=== PATIENT | male | born 1945 | race Caucasian/White ===

== ENCOUNTER 2017-05-14 06:48 | Inpatient (IN) | payer MEDICARE, OTHER ==
--- NOTE | 2017-05-14 06:43 | EDM.PDOC ---
<Tomer Dorsey M - Last Filed: 05/14/17 06:35> ED HPI GENERAL MEDICAL PROBLEM - General Chief Complaint: Neurological Problem Stated Complaint: AMBULANCE Time Seen by Provider: 05/13/17 06:45 Source of Information: Reports: EMS History Limitations: Reports: Altered Mental Status - History of Present Illness INITIAL COMMENTS - FREE TEXT/NARRATIVE: This 71 yo male patient was brought to the ED by [facility] due to altered mentation. The patient's reports that the patient was having difficulties walking last night at about 1000 when he went to bed. This morning, the was having a difficult time waking him up. EMS reports that the patient had snoring respirations upon their arrival. EMS established an IV, got a blood sugar of 33 , gave the patient 2 amps of D50 and transported. After the D50, the patient started to respond, but had left sided weakness and was leaning to the right while in the cot. The patient's reports that the patient has had a history of bilateral strokes, but reports this is not his normal behavior. The patient was sent to CT directly from the ambulance prior to assessment. EMS also did several EKG's demonstrating various rhythms (sinus tach and a wide complex rhythm). Onset: Today Duration: Constant Location: Reports: Generalized Quality: Reports: Other Severity: Severe Improves with: Reports: None Worsens with: Reports: None Associated Symptoms: Reports: Cough (for 1 week reported by patient's ), Shortness of Breath, Weakness Treatments ENDOSCOPY TECHNICAN: Reports: IV/IO (by EMS), Other Medication(s) (D50 x 2 amps by EMS) - Related Data Allergies Allergy/AdvReac Type Severity Reaction Status Date / Time sulfamethoxazole Allergy Blisters Verified 01/07/16 23:42 [From Bactrim] trimethoprim [From Bactrim] Allergy Blisters Verified 01/07/16 23:42 Home Meds: Home Meds Calcium Carbonate [Calcium] 1,200 mg PO DAILY 06/21/13 [History] Clopidogrel Bisulfate [Plavix] 75 mg PO DAILY 06/21/13 [History] Folic Acid 3 tab PO DAILY 06/21/13 [History] Gabapentin [Neurontin] 300 mg PO BID 06/21/13 [History] Hydroxychloroquine Sulfate [Plaquenil] 200 mg PO DAILY 06/21/13 [History] Insulin Aspart [NovoLOG] 1 unit SQ ASDIRECTED 06/21/13 [History] Multivitamin [Multivitamins] 1 each PO DAILY 06/21/13 [History] Nitroglycerin [Nitrostat] 1 tab SL ASDIRECTED PRN 06/21/13 [History] [place]-3/DHA/Epa/Fish Oil [Ra Fish Oil 1,000 mg Softgel] 1 cap PO DAILY 06/21/13 [History] atorvaSTATin [Lipitor] 40 mg PO BEDTIME 06/21/13 [History] Carvedilol 15.625 mg PO BID 05/25/14 [History] Amiodarone [Cordarone] 200 mg PO BEDTIME 11/02/15 [History] Furosemide [Lasix] 40 mg PO ASDIRECTED PRN 11/02/15 [History] Rivaroxaban [Xarelto] 10 mg PO DAILY 11/02/15 [History] Valsartan/Hydrochlorothiazide [Valsartan-Hctz 320-25 mg Tab] 325 tab PO DAILY [History] quiNINE Sulfate [Qualaquin] 260 mg PO ASDIRECTED PRN 11/02/15 [History] Potassium Chloride [Klor-Con M20] 20 meq PO DAILY 11/03/15 [History] Timolol Maleate 1 drop EYEBOTH DAILY 11/03/15 [History] Past Medical History HEENT History: Reports: Cataract Cardiovascular History: Reports: Automatic Implantable Cardioverter Defibrillators, Bypass, High Cholesterol, Hypertension, Stents Respiratory History: Reports: Sleep Apnea Musculoskeletal History: Reports: Arthritis, Other (See Below) Other Musculoskeletal History: scoliosis Neurological History: Reports: CVA, Speech Problems Endocrine/Metabolic History: Reports: Diabetes, Type I, Other (See Below) Other Endocrine/Metabolic History: insulin pump - Infectious Disease History Infectious Disease History: Reports: MRSA, Other (See Below) Other Infectious Disease History: previous MRSA in foot wound culture - Past Surgical History Cardiovascular Surgical History: Reports: AICD, Coronary Artery Stent GI Surgical History: Reports: Hernia, Abdominal Musculoskeletal Surgical History: Reports: Amputation, Other (See Below) Social & Family History - Family History Family Medical History: Noncontributory - Tobacco Use Smoking Status *Q: Never Smoker Used Tobacco, but Quit: No Second Hand Smoke Exposure: No - Caffeine Use Caffeine Use: Reports: Coffee, Soda - Alcohol Use Days Per Week of Alcohol Use: 1 Number of Drinks Per Day: 1 Total Drinks Per Week: 1 - Recreational Drug Use Recreational Drug Use: No Drug Use in Last 12 Months: No ED ROS GENERAL - Review of Systems Review Of Systems: ROS reveals no pertinent complaints other than HPI. Course - Vital Signs Last Recorded V/S: Last Vital Signs Temp 36.2 C 05/14/17 07:00 Pulse 74 05/14/17 07:00 Resp 12 05/14/17 07:00 BP 146/105 H 05/14/17 07:00 Pulse Ox 99 05/14/17 07:00 - Orders/Labs/Meds Orders: Active Orders 24 hr Category Date Time Status Blood Glucose Check, Bedside [] ONETIME Care 05/14/17 07:30 Active EKG Documentation Completion [] URGENT Care 05/14/17 06:39 Active Glucose [Blood Glucose Check, Bedside] [] ONETIME Care 05/14/17 06:33 Active CULTURE BLOOD [] Stat Lab 05/14/17 06:58 Received CULTURE BLOOD [] Stat Lab 05/14/17 07:09 Results CULTURE STREP A CONFIRMATION [] Stat Lab 05/14/17 07:38 Results STREP SCRN A RAPID W CULT CONF [] Stat Lab 05/14/17 07:38 Results Dextrose 5%-0.45% NaCl [Dextrose 5%-1/2 NS] 1,000 ml Med 05/14/17 07:30 Active IV ASDIRECTED Piperacillin/Tazobactam [Zosyn] 3.375 gm Med 05/14/17 09:37 Ordered Sodium Chloride 0.9% [Normal Saline] 100 ml IV ONETIME Blood Culture x2 Reflex Set [OM.PC] Stat Oth 05/14/17 06:33 Ordered Medication Orders Dextrose/Sodium Chloride (Dextrose 5%-1/2 Ns) 1,000 mls @ 100 mls/hr IV ASDIRECTED TYRONE Last Admin: 05/14/17 07:57 Dose: 100 mls/hr Piperacillin Sod/Tazobactam (Sod 3.375 gm/ Sodium Chloride) 100 mls @ 200 mls/ hr IV ONETIME ONE Stop: 05/14/17 10:06 Last Admin: 05/14/17 09:53 Dose: 200 mls/hr Labs: Laboratory Tests 05/14/17 05/14/17 05/14/17 Range/Units 06:49 06:58 06:58 WBC (5.0-10.0) 10^3/uL RBC (4.6-6.2) 10^6/uL Hgb (14.0-18.0) g/dL Hct (40.0-54.0) % MCV (80-100) fL MCH (27.0-34.0) pg MCHC (33.0-35.0) g/dL Plt Count (150-450) 10^3/uL Neut % (Auto) (42.2-75.2) % Lymph % (Auto) (20.5-50.1) % Story % (Auto) (2-8) % Eos % (Auto) (1.0-3.0) % Baso % (Auto) (0.0-1.0) % PT 10.7 (9.0-12.0) SEC INR 1.1 (0.9-1.2) Sodium (135-145) mmol/L Potassium (3.6-5.0) mmol/L Chloride (101-111) mmol/L Carbon Dioxide (21.0-31.0) mmol/L Anion Gap BUN (7-18) mg/dL Creatinine (0.6-1.3) mg/dL Est Cr Clr Drug Dosing mL/min Estimated GFR (MDRD) BUN/Creatinine Ratio Glucose (74-105) mg/dL POC Glucose 178 H (83-110) mg/dl Lactic Acid 2.0 (0.5-2.2) mmol/L Calcium (8.4-10.2) mg/dl Magnesium (1.8-2.5) mg/dL Total Bilirubin (0.2-1.0) mg/dL AST (10-42) IU/L ALT (10-60) IU/L Alkaline Phosphatase (42-121) IU/L Troponin I (0.00-0.02) ng/ml B-Natriuretic Peptide (0-100) pg/ml Total Protein (6.7-8.2) g/dl Albumin (3.2-5.5) g/dl Globulin Albumin/Globulin Ratio Urine Color (YELLOW) Urine Appearance (CLEAR) Urine pH (5.0-9.0) Ur Specific [place] (1.005-1.030) Urine Protein (NEGATIVE) Urine Glucose (UA) (NEGATIVE) Urine Ketones (NEGATIVE) Urine Occult Blood (NEGATIVE) Urine Nitrite (NEGATIVE) Urine Bilirubin (NEGATIVE) Urine Urobilinogen (0.2-1.0) mg/dL Ur Leukocyte Esterase (NEGATIVE) Urine RBC /HPF Urine WBC (0-5/HPF) /HPF Ur Epithelial Cells /HPF Urine Bacteria (0-FEW/HPF) /HPF Hyaline Casts /LPF Fine Granular Casts (0/LPF) /LPF Urine Mucus /LPF 05/14/17 05/14/17 05/14/17 Range/Units 06:58 06:58 06:58 WBC 14.7 H (5.0-10.0) 10^3/uL RBC 4.84 (4.6-6.2) 10^6/uL Hgb 14.0 (14.0-18.0) g/dL Hct 43.3 (40.0-54.0) % MCV 89.5 (80-100) fL MCH 28.9 (27.0-34.0) pg MCHC 32.3 L (33.0-35.0) g/dL Plt Count 335 D (150-450) 10^3/uL Neut % (Auto) 86.4 H (42.2-75.2) % Lymph % (Auto) 7.7 L (20.5-50.1) % Story % (Auto) 5.1 (2-8) % Eos % (Auto) 0.3 L (1.0-3.0) % Baso % (Auto) 0.5 (0.0-1.0) % PT (9.0-12.0) SEC INR (0.9-1.2) Sodium 142 (135-145) mmol/L Potassium 3.9 (3.6-5.0) mmol/L Chloride 102 (101-111) mmol/L Carbon Dioxide 27.0 (21.0-31.0) mmol/L Anion Gap 16.9 BUN 35 H (7-18) mg/dL Creatinine 1.6 H (0.6-1.3) mg/dL Est Cr Clr Drug Dosing 43.79 mL/min Estimated GFR (MDRD) 43 BUN/Creatinine Ratio 21.87 Glucose 213 H (74-105) mg/dL POC Glucose (83-110) mg/dl Lactic Acid (0.5-2.2) mmol/L Calcium 9.7 (8.4-10.2) mg/dl Magnesium 2.4 (1.8-2.5) mg/dL Total Bilirubin 0.9 (0.2-1.0) mg/dL AST 32 (10-42) IU/L ALT 22 (10-60) IU/L Alkaline Phosphatase 88 (42-121) IU/L Troponin I 0.04 H* (0.00-0.02) ng/ml B-Natriuretic Peptide (0-100) pg/ml Total Protein 8.0 (6.7-8.2) g/dl Albumin 4.3 (3.2-5.5) g/dl Globulin 3.7 Albumin/Globulin Ratio 1.16 Urine Color (YELLOW) Urine Appearance (CLEAR) Urine pH (5.0-9.0) Ur Specific [place] (1.005-1.030) Urine Protein (NEGATIVE) Urine Glucose (UA) (NEGATIVE) Urine Ketones (NEGATIVE) Urine Occult Blood (NEGATIVE) Urine Nitrite (NEGATIVE) Urine Bilirubin (NEGATIVE) Urine Urobilinogen (0.2-1.0) mg/dL Ur Leukocyte Esterase (NEGATIVE) Urine RBC /HPF Urine WBC (0-5/HPF) /HPF Ur Epithelial Cells /HPF Urine Bacteria (0-FEW/HPF) /HPF Hyaline Casts /LPF Fine Granular Casts (0/LPF) /LPF Urine Mucus /LPF 05/14/17 05/14/17 05/14/17 Range/Units 06:58 07:38 07:43 WBC (5.0-10.0) 10^3/uL RBC (4.6-6.2) 10^6/uL Hgb (14.0-18.0) g/dL Hct (40.0-54.0) % MCV (80-100) fL MCH (27.0-34.0) pg MCHC (33.0-35.0) g/dL Plt Count (150-450) 10^3/uL Neut % (Auto) (42.2-75.2) % Lymph % (Auto) (20.5-50.1) % Story % (Auto) (2-8) % Eos % (Auto) (1.0-3.0) % Baso % (Auto) (0.0-1.0) % PT (9.0-12.0) SEC INR (0.9-1.2) Sodium (135-145) mmol/L Potassium (3.6-5.0) mmol/L Chloride (101-111) mmol/L Carbon Dioxide (21.0-31.0) mmol/L Anion Gap BUN (7-18) mg/dL Creatinine (0.6-1.3) mg/dL Est Cr Clr Drug Dosing mL/min Estimated GFR (MDRD) BUN/Creatinine Ratio Glucose (74-105) mg/dL POC Glucose 152 H (83-110) mg/dl Lactic Acid (0.5-2.2) mmol/L Calcium (8.4-10.2) mg/dl Magnesium (1.8-2.5) mg/dL Total Bilirubin (0.2-1.0) mg/dL AST (10-42) IU/L ALT (10-60) IU/L Alkaline Phosphatase (42-121) IU/L Troponin I (0.00-0.02) ng/ml B-Natriuretic Peptide 766 H (0-100) pg/ml Total Protein (6.7-8.2) g/dl Albumin (3.2-5.5) g/dl Globulin Albumin/Globulin Ratio Urine Color Yellow (YELLOW) Urine Appearance Slightly cloudy (CLEAR) Urine pH 6.0 (5.0-9.0) Ur Specific [place] 1.015 (1.005-1.030) Urine Protein 30 H (NEGATIVE) Urine Glucose (UA) 250 H (NEGATIVE) Urine Ketones Trace H (NEGATIVE) Urine Occult Blood Trace-intact H (NEGATIVE) Urine Nitrite Negative (NEGATIVE) Urine Bilirubin Negative (NEGATIVE) Urine Urobilinogen 0.2 (0.2-1.0) mg/dL Ur Leukocyte Esterase Negative (NEGATIVE) Urine RBC 10-20 H /HPF Urine WBC 0-5 (0-5/HPF) /HPF Ur Epithelial Cells Few /HPF Urine Bacteria Not seen (0-FEW/HPF) /HPF Hyaline Casts See note /LPF Fine Granular Casts See note (0/LPF) /LPF Urine Mucus Rare /LPF 05/14/17 Range/Units 08:11 WBC (5.0-10.0) 10^3/uL RBC (4.6-6.2) 10^6/uL Hgb (14.0-18.0) g/dL Hct (40.0-54.0) % MCV (80-100) fL MCH (27.0-34.0) pg MCHC (33.0-35.0) g/dL Plt Count (150-450) 10^3/uL Neut % (Auto) (42.2-75.2) % Lymph % (Auto) (20.5-50.1) % Story % (Auto) (2-8) % Eos % (Auto) (1.0-3.0) % Baso % (Auto) (0.0-1.0) % PT (9.0-12.0) SEC INR (0.9-1.2) Sodium (135-145) mmol/L Potassium (3.6-5.0) mmol/L Chloride (101-111) mmol/L Carbon Dioxide (21.0-31.0) mmol/L Anion Gap BUN (7-18) mg/dL Creatinine (0.6-1.3) mg/dL Est Cr Clr Drug Dosing mL/min Estimated GFR (MDRD) BUN/Creatinine Ratio Glucose (74-105) mg/dL POC Glucose 184 H (83-110) mg/dl Lactic Acid (0.5-2.2) mmol/L Calcium (8.4-10.2) mg/dl Magnesium (1.8-2.5) mg/dL Total Bilirubin (0.2-1.0) mg/dL AST (10-42) IU/L ALT (10-60) IU/L Alkaline Phosphatase (42-121) IU/L Troponin I (0.00-0.02) ng/ml B-Natriuretic Peptide (0-100) pg/ml Total Protein (6.7-8.2) g/dl Albumin (3.2-5.5) g/dl Globulin Albumin/Globulin Ratio Urine Color (YELLOW) Urine Appearance (CLEAR) Urine pH (5.0-9.0) Ur Specific [place] (1.005-1.030) Urine Protein (NEGATIVE) Urine Glucose (UA) (NEGATIVE) Urine Ketones (NEGATIVE) Urine Occult Blood (NEGATIVE) Urine Nitrite (NEGATIVE) Urine Bilirubin (NEGATIVE) Urine Urobilinogen (0.2-1.0) mg/dL Ur Leukocyte Esterase (NEGATIVE) Urine RBC /HPF Urine WBC (0-5/HPF) /HPF Ur Epithelial Cells /HPF Urine Bacteria (0-FEW/HPF) /HPF Hyaline Casts /LPF Fine Granular Casts (0/LPF) /LPF Urine Mucus /LPF Meds: Medications Generic Name Dose Route Start Last Admin Trade Name Freq PRN Reason Stop Dose Admin Dextrose/Sodium Chloride 1,000 mls @ 100 mls/hr 05/14/17 07:30 05/14/17 07:57 Dextrose 5%-1/2 Ns IV 100 mls/hr ASDIRECTED TYRONE Administration Piperacillin Sod/Tazobactam 100 mls @ 200 mls/hr 05/14/17 09:37 05/14/17 09: 53 Sod 3.375 gm/ Sodium Chloride IV 05/14/17 10:06 200 mls/hr ONETIME ONE Administration Discontinued Medications Generic Name Dose Route Start Last Admin Trade Name Freq PRN Reason Stop Dose Admin Levofloxacin/Dextrose 500 mg/ 100 mls @ 100 mls/hr 05/14/17 07:49 05/14/17 07 :57 Premix IV 05/14/17 08:48 100 mls/hr ONETIME ONE Administration Departure - Departure Disposition: Admitted As Inpatient 64 Clinical Impression: Hypoglycemia due to insulin, Diabetes mellitus type 2, insulin dependent, Chronic atrial fibrillation, Delirium Aspiration pneumonia Qualifiers: Aspiration pneumonia type: unspecified Laterality: left Lung location: lower lobe of lung Qualified Code(s): J69.0 - Pneumonitis due to inhalation of food and vomit Chronic CHF (congestive heart failure) Qualifiers: Heart failure type: unspecified Qualified Code(s): I50.9 - Heart failure, unspecified Chronic kidney disease Qualifiers: Chronic kidney disease stage: unspecified stage Qualified Code(s): N18.9 - Chronic kidney disease, unspecified - Discharge Information Referrals: Chino Alaniz MD [Primary Care Provider] - Forms: ED Department Discharge - My Orders Last 24 Hours: My Active Orders 05/14/17 07:30 Blood Glucose Check, Bedside [RC] ONETIME Dextrose 5%-0.45% NaCl [Dextrose 5%-1/2 NS] 1,000 ml IV ASDIRECTED 05/14/17 07:38 CULTURE STREP A CONFIRMATION [RM] Stat STREP SCRN A RAPID W CULT CONF [RM] Stat 05/14/17 09:37 Piperacillin/Tazobactam [Zosyn] 3.375 gm Sodium Chloride 0.9% [Normal Saline] 100 ml IV ONETIME - Assessment/Plan Last 24 Hours: My Active Orders 05/14/17 07:30 Blood Glucose Check, Bedside [RC] ONETIME Dextrose 5%-0.45% NaCl [Dextrose 5%-1/2 NS] 1,000 ml IV ASDIRECTED 05/14/17 07:38 CULTURE STREP A CONFIRMATION [RM] Stat STREP SCRN A RAPID W CULT CONF [RM] Stat 05/14/17 09:37 Piperacillin/Tazobactam [Zosyn] 3.375 gm Sodium Chloride 0.9% [Normal Saline] 100 ml IV ONETIME <Benton Claytonian - Last Filed: 05/14/17 10:18> ED HPI GENERAL MEDICAL PROBLEM - General Source of Information: Reports: Patient, Family (), Old Records, RN, RN Notes Reviewed - History of Present Illness INITIAL COMMENTS - FREE TEXT/NARRATIVE: Assumed care of pt from Tomer KELLEY at 0700HR shift change. Pt denies pain , but is confused and unable to provide any history. Pt's states that they just returned home from [place] by car this week. She state pt was not feeling well and has had high blood sugars for a few days. She suspected he may be getting an infection but she didn't notice any fevers. Last night at 10PM she states he had difficulty walking, but he went to bed and slept all night. She was afraid he used too much insulin, so she checked his blood sugar and it was 30 so she called 911. She states pt has had multiple strokes and has aspiration but he refuses a diet of thickened liquids and eats and drinks what he wants. Onset Date: 05/13/17 Past Medical History HEENT History: Reports: Impaired Vision Cardiovascular History: Reports: Afib, CAD, Heart Failure Musculoskeletal History: Reports: RA Neurological History: Reports: TIA, Other (See Below) (chronic aspiration s/p CVA) Endocrine/Metabolic History: Reports: Diabetes, Type I, IDDM - Past Surgical History Cardiovascular Surgical History: Reports: Carotid Endarterectomy Musculoskeletal Surgical History: Reports: Other (See Below) Social & Family History - Living Situation & Occupation Living situation: Reports: , with Spouse Occupation: Retired ED ROS GENERAL - Review of Systems Review Of Systems: Unable To Obtain (from pt due to confusion) ED EXAM, GENERAL - Physical Exam Exam: See Below Exam Limited By: Altered Mental Status General Appearance: Alert, No Apparent Distress, Other (chronically ill, but non -toxic appearing) Eye Exam: Bilateral Eye: EOMI, PERRL Ears: Hearing Grossly Normal Nose: No Blood, Nasal Drainage (moderate nasal congestion w/clear-yellowish mucus) Throat/Mouth: Normal Lips, Normal Oropharynx, Normal Voice, No Airway Compromise , Other (very dry oral membranes) Head: Atraumatic, Normocephalic Neck: Normal Inspection, Supple, Non-Tender, Full Range of Motion Respiratory/Chest: No Respiratory Distress, No Accessory Muscle Use, Decreased Breath Sounds, Rhonchi (left lung base). No: Wheezing Cardiovascular: Regular Rate, Rhythm, No Edema, No JVD GI/Abdominal: Normal Bowel Sounds, Soft, Non-Tender, No Distention. No: Guarding, Rigid, Rebound (Male) Exam: Deferred Rectal (Males) Exam: Deferred Back Exam: No: CVA Tenderness (L), CVA Tenderness (R) Extremities: Normal Inspection, Non-Tender Neurological: Alert, No Motor/Sensory Deficits, Confused Psychiatric: Normal Mood Skin Exam: Warm, Dry, Intact, Normal Color, No Rash EKG INTERPRETATION EKG Date: 05/14/17 Time: 07:00 Rhythm: A-Fib Rate (Beats/Min): 79 [place]: Normal P-Wave: Absent QRS: Other (non-specific IVCD) ST-T: Elevated (chronic/unchanged compared to EKG dated 11/02/17) QT: Normal Comparison: No Change Course - Radiology Interpretation Free Text/Narrative:: CXR: LLL infiltrate suspicious for aspiration pneumonia per Radiologist report. - Re-Assessments/Exams Free Text/Narrative Re-Assessment/Exam: 05/14/17 09:50 No acute CVA per Head CT report. Pt with resolved hypoglycemia and resolved right sided weakness. He has persistent confusion, consistent with mild delirium which may be secondary to aspiration pneumonia. Pt will be admitted to the medical floor to the hospitalist service for treatment of aspiration pneumonia, monitoring for recurrence of hypoglycemia. I explained to the pt's spouse that an ischemic stroke could be present but may not be detectable by the initial CT scan, and may become detectable by CT or MRI after 36 to 48 hours. Departure - Departure Time of Disposition: 09:38 (Admitted to Dr. Paredes) Condition: Serious
[2017-05-14] MEDS ORDERED: Dextrose 5%-0.45% NaCl 1,000 ML IV SCH (07:30)
[2017-05-14] MEDS ORDERED: Levofloxacin/Dextrose 5%-Water 500 MG in Premix Bag 1 BAG IV ONE (07:49)
--- NOTE | 2017-05-14 09:04 | CR ---
Clinical history: 71-year-old male with confusion and cough. 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 Cardiac silhouette prominent with generalized slight shaggy accentuation bronchovascular markings but overall appearance heart and lung markings unchanged, considering poor inspiration. *Increased retrocardiac density left base since 02 November 2015 may reflect poor inspiration and at electasis but cannot exclude developing pneumonitis. Clinical aspiration? No lung mass, hilar lymphadenopathy or other focal lobar consolidation. CONCLUSION: Suspicious appearance left lung base (see above). Evidence previous surgery. No alveolar edema.
[2017-05-14] MEDS ORDERED: Piperacillin/Tazobactam 3.375 GM in Sodium Chloride 0.9% 100 ML IV ONE (09:37)
[2017-05-14] MEDS ORDERED: Magnesium Hydroxide 400 MG/5 ML Susp 30 ML Cup PO PRN (11:54)
[2017-05-14] MEDS ORDERED: Bisacodyl 10 MG Supp RECTAL PRN (11:54)
[2017-05-14] MEDS ORDERED: Aluminum Hydroxide/Magnesium Hydroxide/Simethicone Susp 30 ML Cup PO PRN (11:54)
[2017-05-14] MEDS ORDERED: Docusate Sodium 100 MG Cap PO PRN (11:54)
[2017-05-14] MEDS ORDERED: Acetaminophen 325 MG Tab PO PRN (11:54)
[2017-05-14] MEDS ORDERED: Nitroglycerin 0.4 MG Tab.SL SL PRN (12:08)
--- NOTE | 2017-05-14 12:12 | PCM.HP ---
H&P History of Present Illness - General Date of Service: 05/14/17 Admit Problem/Dx: Admission Diagnosis/Problem Admission Diagnosis/Problem Hypoglycemia Source of Information: Patient, EMS Notes Reviewed, Family, Other History Limitations: Reports: Altered Mental Status - History of Present Illness Initial Comments - Free Text/Narative: Patient is 71 yo male with multiple comobid including previous stroke with residual weakness and dysarhthria, HTN, DM-II on insulin. He was brought to the ED by [facility] due to altered mentation. reports patient blood glucose was elevated yesterday and seems to have injected too much insulin. This morning he was not responding when was waking him up. She checked her finger stick glucose and was 33. She activated EMS. On arrival EMS checked his FSG and was 30. He recieved 2 amps of D50. He became more awake after wards and was subsequently brought to the ED. Patient appeared confused and weak in the ED. He had cough but no fever of chills. Initial labs reveald wbc of 14 and cxr was suggestive of aspiration pneumonia. At bedside evaluation patient is awake and alert. He is oriented to place, time and person. He denies any complaint. No SOB, chest pain, nausea, vomiting. reports he has dysphagia with multiple aspiration but patient does not stick to his recommended diet consistency. Onset of Symptoms: Reports: Today, Sudden Duration of Symptoms: Reports: Hour(s):, Improving Location: Reports: Generalized Improves with: Reports: None Worsens with: Reports: None Context: Reports: Other Associated Symptoms: Reports: Confusion, Cough - Related Data Allergies/Adverse Reactions: Allergies Allergy/AdvReac Type Severity Reaction Status Date / Time sulfamethoxazole Allergy Blisters Verified 05/14/17 11:54 [From Bactrim] trimethoprim [From Bactrim] Allergy Blisters Verified 05/14/17 11:54 Home Medications: Home Meds Calcium Carbonate [Calcium] 1,200 mg PO DAILY 06/21/13 [History] Clopidogrel Bisulfate [Plavix] 75 mg PO DAILY 06/21/13 [History] Folic Acid 3 tab PO DAILY 06/21/13 [History] Gabapentin [Neurontin] 300 mg PO BID 06/21/13 [History] Hydroxychloroquine Sulfate [Plaquenil] 200 mg PO DAILY 06/21/13 [History] Insulin Aspart [NovoLOG] 1 unit SQ ASDIRECTED 06/21/13 [History] Multivitamin [Multivitamins] 1 each PO DAILY 06/21/13 [History] Nitroglycerin [Nitrostat] 1 tab SL ASDIRECTED PRN 06/21/13 [History] [place]-3/DHA/Epa/Fish Oil [Ra Fish Oil 1,000 mg Softgel] 1 cap PO DAILY 06/21/13 [History] atorvaSTATin [Lipitor] 40 mg PO BEDTIME 06/21/13 [History] Carvedilol 3.125 mg PO BID 05/25/14 [History] Amiodarone [Cordarone] 200 mg PO BEDTIME 11/02/15 [History] Furosemide [Lasix] 40 mg PO ASDIRECTED 11/02/15 [History] Rivaroxaban [Xarelto] 10 mg PO DAILY 11/02/15 [History] Valsartan/Hydrochlorothiazide [Valsartan-Hctz 320-25 mg Tab] 325 tab PO DAILY [History] Potassium Chloride [Klor-Con M20] 20 meq PO DAILY 11/03/15 [History] Timolol Maleate 1 drop EYEBOTH DAILY 11/03/15 [History] Past Medical History HEENT History: Reports: Impaired Vision Cardiovascular History: Reports: Afib, CAD, Heart Failure Respiratory History: Reports: Sleep Apnea Musculoskeletal History: Reports: RA Other Musculoskeletal History: scoliosis Neurological History: Reports: TIA, Other (See Below) (chronic aspiration s/p CVA) Endocrine/Metabolic History: Reports: Diabetes, Type I, IDDM Other Endocrine/Metabolic History: insulin pump - Infectious Disease History Infectious Disease History: Reports: MRSA Other Infectious Disease History: previous MRSA in foot wound culture and nasel swab. - Past Surgical History Cardiovascular Surgical History: Reports: Carotid Endarterectomy Musculoskeletal Surgical History: Reports: Other (See Below) Social & Family History - Family History Family Medical History: Noncontributory - Tobacco Use Smoking Status *Q: Never Smoker Used Tobacco, but Quit: No Second Hand Smoke Exposure: No - Caffeine Use Caffeine Use: Reports: Coffee, Tea - Alcohol Use Days Per Week of Alcohol Use: 1 Number of Drinks Per Day: 1 Total Drinks Per Week: 1 - Recreational Drug Use Recreational Drug Use: No Drug Use in Last 12 Months: No - Living Situation & Occupation Living situation: Reports: , with Spouse Occupation: Retired H&P Review of Systems - Review of Systems: Review Of Systems: See Below General: Reports: No Symptoms HEENT: Reports: No Symptoms Pulmonary: Reports: No Symptoms Cardiovascular: Reports: No Symptoms Gastrointestinal: Reports: Constipation Musculoskeletal: Reports: No Symptoms Skin: Reports: No Symptoms Psychiatric: Reports: No Symptoms Neurological: Reports: No Symptoms Hematologic/Lymphatic: Reports: No Symptoms Immunologic: Reports: No Symptoms Exam - Exam Exam: See Below - Vital Signs Vital Signs: Last Vital Signs Temp 97.1 F 05/14/17 07:00 Pulse 74 05/14/17 07:00 Resp 12 05/14/17 07:00 BP 146/105 H 05/14/17 07:00 Pulse Ox 99 05/14/17 07:00 Weight: 185 lb - Exam Quality Assessment: Supplemental Oxygen General: Alert, Oriented, Cooperative, Mild Distress HEENT: PERRLA, Hearing Intact, Mucosa Moist & [place], Nares Patent, Normal Nasal Septum, Posterior Pharynx Clear, Conjunctiva Clear, EOMI, EACs Clear, TMs Clear Neck: Supple, Trachea Midline, 2 Cardiovascular: Regular Rate, Regular Rhythm GI/Abdominal Exam: Normal Bowel Sounds, Soft, Non-Tender, No Organomegaly, No Distention, No Abnormal Bruit, No Mass, Pelvis Stable (Male) Exam: No Hernia, Normal Inspection, Normal Prostate, Circumcised Rectal (Males) Exam: Deferred Back Exam: Normal Inspection Extremities: Normal Inspection, Normal Range of Motion, Non-Tender, No Pedal Edema, Normal Capillary Refill Skin: Warm, Dry, Intact Neurological: Cranial Nerves Intact, Reflexes Equal Bilateral Neuro Extensive - Mental Status: Alert, Oriented x3, Normal Mood/Affect, Normal Cognition Neuro Extensive - Motor, Sensory, Reflexes: CN II-XII Intact, Normal Gait, Normal Reflexes Psychiatric: Alert, Normal Affect, Normal Mood - Patient Data Lab Results Last 24 hrs: Laboratory Results - last 24 hr 05/14/17 05/14/17 05/14/17 Range/Units 06:49 06:58 06:58 WBC (5.0-10.0) 10^3/uL RBC (4.6-6.2) 10^6/uL Hgb (14.0-18.0) g/dL Hct (40.0-54.0) % MCV (80-100) fL MCH (27.0-34.0) pg MCHC (33.0-35.0) g/dL Plt Count (150-450) 10^3/uL Neut % (Auto) (42.2-75.2) % Lymph % (Auto) (20.5-50.1) % [place] % (Auto) (2-8) % Eos % (Auto) (1.0-3.0) % Baso % (Auto) (0.0-1.0) % PT 10.7 (9.0-12.0) SEC INR 1.1 (0.9-1.2) Sodium (135-145) mmol/L Potassium (3.6-5.0) mmol/L Chloride (101-111) mmol/L Carbon Dioxide (21.0-31.0) mmol/L Anion Gap BUN (7-18) mg/dL Creatinine (0.6-1.3) mg/dL Est Cr Clr Drug Dosing mL/min Estimated GFR (MDRD) BUN/Creatinine Ratio Glucose (74-105) mg/dL POC Glucose 178 H (83-110) mg/dl Lactic Acid 2.0 (0.5-2.2) mmol/L Calcium (8.4-10.2) mg/dl Magnesium (1.8-2.5) mg/dL Total Bilirubin (0.2-1.0) mg/dL AST (10-42) IU/L ALT (10-60) IU/L Alkaline Phosphatase (42-121) IU/L Troponin I (0.00-0.02) ng/ml B-Natriuretic Peptide (0-100) pg/ml Total Protein (6.7-8.2) g/dl Albumin (3.2-5.5) g/dl Globulin Albumin/Globulin Ratio Urine Color (YELLOW) Urine Appearance (CLEAR) Urine pH (5.0-9.0) Ur Specific [place] (1.005-1.030) Urine Protein (NEGATIVE) Urine Glucose (UA) (NEGATIVE) Urine Ketones (NEGATIVE) Urine Occult Blood (NEGATIVE) Urine Nitrite (NEGATIVE) Urine Bilirubin (NEGATIVE) Urine Urobilinogen (0.2-1.0) mg/dL Ur Leukocyte Esterase (NEGATIVE) Urine RBC /HPF Urine WBC (0-5/HPF) /HPF Ur Epithelial Cells /HPF Urine Bacteria (0-FEW/HPF) /HPF Hyaline Casts /LPF Fine Granular Casts (0/LPF) /LPF Urine Mucus /LPF 05/14/17 05/14/17 05/14/17 Range/Units 06:58 06:58 06:58 WBC 14.7 H (5.0-10.0) 10^3/uL RBC 4.84 (4.6-6.2) 10^6/uL Hgb 14.0 (14.0-18.0) g/dL Hct 43.3 (40.0-54.0) % MCV 89.5 (80-100) fL MCH 28.9 (27.0-34.0) pg MCHC 32.3 L (33.0-35.0) g/dL Plt Count 335 D (150-450) 10^3/uL Neut % (Auto) 86.4 H (42.2-75.2) % Lymph % (Auto) 7.7 L (20.5-50.1) % [place] % (Auto) 5.1 (2-8) % Eos % (Auto) 0.3 L (1.0-3.0) % Baso % (Auto) 0.5 (0.0-1.0) % PT (9.0-12.0) SEC INR (0.9-1.2) Sodium 142 (135-145) mmol/L Potassium 3.9 (3.6-5.0) mmol/L Chloride 102 (101-111) mmol/L Carbon Dioxide 27.0 (21.0-31.0) mmol/L Anion Gap 16.9 BUN 35 H (7-18) mg/dL Creatinine 1.6 H (0.6-1.3) mg/dL Est Cr Clr Drug Dosing 43.79 mL/min Estimated GFR (MDRD) 43 BUN/Creatinine Ratio 21.87 Glucose 213 H (74-105) mg/dL POC Glucose (83-110) mg/dl Lactic Acid (0.5-2.2) mmol/L Calcium 9.7 (8.4-10.2) mg/dl Magnesium 2.4 (1.8-2.5) mg/dL Total Bilirubin 0.9 (0.2-1.0) mg/dL AST 32 (10-42) IU/L ALT 22 (10-60) IU/L Alkaline Phosphatase 88 (42-121) IU/L Troponin I 0.04 H* (0.00-0.02) ng/ml B-Natriuretic Peptide (0-100) pg/ml Total Protein 8.0 (6.7-8.2) g/dl Albumin 4.3 (3.2-5.5) g/dl Globulin 3.7 Albumin/Globulin Ratio 1.16 Urine Color (YELLOW) Urine Appearance (CLEAR) Urine pH (5.0-9.0) Ur Specific [place] (1.005-1.030) Urine Protein (NEGATIVE) Urine Glucose (UA) (NEGATIVE) Urine Ketones (NEGATIVE) Urine Occult Blood (NEGATIVE) Urine Nitrite (NEGATIVE) Urine Bilirubin (NEGATIVE) Urine Urobilinogen (0.2-1.0) mg/dL Ur Leukocyte Esterase (NEGATIVE) Urine RBC /HPF Urine WBC (0-5/HPF) /HPF Ur Epithelial Cells /HPF Urine Bacteria (0-FEW/HPF) /HPF Hyaline Casts /LPF Fine Granular Casts (0/LPF) /LPF Urine Mucus /LPF 05/14/17 05/14/17 05/14/17 Range/Units 06:58 07:38 07:43 WBC (5.0-10.0) 10^3/uL RBC (4.6-6.2) 10^6/uL Hgb (14.0-18.0) g/dL Hct (40.0-54.0) % MCV (80-100) fL MCH (27.0-34.0) pg MCHC (33.0-35.0) g/dL Plt Count (150-450) 10^3/uL Neut % (Auto) (42.2-75.2) % Lymph % (Auto) (20.5-50.1) % [place] % (Auto) (2-8) % Eos % (Auto) (1.0-3.0) % Baso % (Auto) (0.0-1.0) % PT (9.0-12.0) SEC INR (0.9-1.2) Sodium (135-145) mmol/L Potassium (3.6-5.0) mmol/L Chloride (101-111) mmol/L Carbon Dioxide (21.0-31.0) mmol/L Anion Gap BUN (7-18) mg/dL Creatinine (0.6-1.3) mg/dL Est Cr Clr Drug Dosing mL/min Estimated GFR (MDRD) BUN/Creatinine Ratio Glucose (74-105) mg/dL POC Glucose 152 H (83-110) mg/dl Lactic Acid (0.5-2.2) mmol/L Calcium (8.4-10.2) mg/dl Magnesium (1.8-2.5) mg/dL Total Bilirubin (0.2-1.0) mg/dL AST (10-42) IU/L ALT (10-60) IU/L Alkaline Phosphatase (42-121) IU/L Troponin I (0.00-0.02) ng/ml B-Natriuretic Peptide 766 H (0-100) pg/ml Total Protein (6.7-8.2) g/dl Albumin (3.2-5.5) g/dl Globulin Albumin/Globulin Ratio Urine Color Yellow (YELLOW) Urine Appearance Slightly cloudy (CLEAR) Urine pH 6.0 (5.0-9.0) Ur Specific [place] 1.015 (1.005-1.030) Urine Protein 30 H (NEGATIVE) Urine Glucose (UA) 250 H (NEGATIVE) Urine Ketones Trace H (NEGATIVE) Urine Occult Blood Trace-intact H (NEGATIVE) Urine Nitrite Negative (NEGATIVE) Urine Bilirubin Negative (NEGATIVE) Urine Urobilinogen 0.2 (0.2-1.0) mg/dL Ur Leukocyte Esterase Negative (NEGATIVE) Urine RBC 10-20 H /HPF Urine WBC 0-5 (0-5/HPF) /HPF Ur Epithelial Cells Few /HPF Urine Bacteria Not seen (0-FEW/HPF) /HPF Hyaline Casts See note /LPF Fine Granular Casts See note (0/LPF) /LPF Urine Mucus Rare /LPF 05/14/17 05/14/17 Range/Units 08:11 10:20 WBC (5.0-10.0) 10^3/uL RBC (4.6-6.2) 10^6/uL Hgb (14.0-18.0) g/dL Hct (40.0-54.0) % MCV (80-100) fL MCH (27.0-34.0) pg MCHC (33.0-35.0) g/dL Plt Count (150-450) 10^3/uL Neut % (Auto) (42.2-75.2) % Lymph % (Auto) (20.5-50.1) % [place] % (Auto) (2-8) % Eos % (Auto) (1.0-3.0) % Baso % (Auto) (0.0-1.0) % PT (9.0-12.0) SEC INR (0.9-1.2) Sodium (135-145) mmol/L Potassium (3.6-5.0) mmol/L Chloride (101-111) mmol/L Carbon Dioxide (21.0-31.0) mmol/L Anion Gap BUN (7-18) mg/dL Creatinine (0.6-1.3) mg/dL Est Cr Clr Drug Dosing mL/min Estimated GFR (MDRD) BUN/Creatinine Ratio Glucose (74-105) mg/dL POC Glucose 184 H 304 H (83-110) mg/dl Lactic Acid (0.5-2.2) mmol/L Calcium (8.4-10.2) mg/dl Magnesium (1.8-2.5) mg/dL Total Bilirubin (0.2-1.0) mg/dL AST (10-42) IU/L ALT (10-60) IU/L Alkaline Phosphatase (42-121) IU/L Troponin I (0.00-0.02) ng/ml B-Natriuretic Peptide (0-100) pg/ml Total Protein (6.7-8.2) g/dl Albumin (3.2-5.5) g/dl Globulin Albumin/Globulin Ratio Urine Color (YELLOW) Urine Appearance (CLEAR) Urine pH (5.0-9.0) Ur Specific [place] (1.005-1.030) Urine Protein (NEGATIVE) Urine Glucose (UA) (NEGATIVE) Urine Ketones (NEGATIVE) Urine Occult Blood (NEGATIVE) Urine Nitrite (NEGATIVE) Urine Bilirubin (NEGATIVE) Urine Urobilinogen (0.2-1.0) mg/dL Ur Leukocyte Esterase (NEGATIVE) Urine RBC /HPF Urine WBC (0-5/HPF) /HPF Ur Epithelial Cells /HPF Urine Bacteria (0-FEW/HPF) /HPF Hyaline Casts /LPF Fine Granular Casts (0/LPF) /LPF Urine Mucus /LPF Result Diagrams: 05/14/17 06:58 05/14/17 06:58 [place] Results Last 24 hrs: Microbiology 05/14/17 07:38 Influenza Type A Antigen Screen - Final Nasal, Unspecified NEGATIVE INFLUENZA A VIRUS AG Influenza Type B Antigen Screen - Final NEGATIVE INFLUENZA B VIRUS AG 05/14/17 07:38 Group A Streptococcus Rapid Screen - Final Throat NEGATIVE STREP A SCREEN 05/14/17 07:09 Anaerobic Blood Culture - Final Blood - Venous - Lab Draw *Q Meaningful Use (ADM) - VTE *Q VTE Anticoagulation Contraindications: Alternative TX Request PT - Problem List (1) Aspiration pneumonia SNOMED Code(s): 833708284 ICD Code: J69.0 - PNEUMONITIS DUE TO INHALATION OF FOOD AND VOMIT Status: Acute Current Visit: Yes Qualifiers: Aspiration pneumonia type: unspecified Laterality: left Lung location: lower lobe of lung Qualified Code(s): J69.0 - Pneumonitis due to inhalation of food and vomit (2) Chronic CHF (congestive heart failure) SNOMED Code(s): 15662754 ICD Code: I50.9 - HEART FAILURE, UNSPECIFIED Status: Acute Current Visit : Yes Qualifiers: Heart failure type: unspecified Qualified Code(s): I50.9 - Heart failure, unspecified (3) Chronic atrial fibrillation SNOMED Code(s): 623275819 ICD Code: I48.2 - CHRONIC ATRIAL FIBRILLATION Status: Acute Current Visit : Yes (4) Chronic kidney disease SNOMED Code(s): 573840563 ICD Code: N18.9 - CHRONIC KIDNEY DISEASE, UNSPECIFIED Status: Acute Current Visit: Yes Qualifiers: Chronic kidney disease stage: unspecified stage Qualified Code(s): N18.9 - Chronic kidney disease, unspecified (5) Diabetes mellitus type 2, insulin dependent SNOMED Code(s): 277953970 ICD Code: E11.9 - TYPE 2 DIABETES MELLITUS WITHOUT COMPLICATIONS; Z79.4 - [employer]MA[employer]ATIONS MA[employer]GER (CURRENT) USE OF INSULIN Status: Acute Current Visit: Yes (6) Hypoglycemia due to insulin SNOMED Code(s): 563951747 ICD Code: E16.0 - DRUG-INDUCED HYPOGLYCEMIA WITHOUT COMA; T38.3X5A - ADVERSE EFFECT OF INSULIN AND ORAL HYPOGLYCEMIC DRUGS, INIT Status: Acute Current Visit: Yes (7) Appendicitis SNOMED Code(s): 38117316 ICD Code: K37 - UNSPECIFIED APPENDICITIS Status: Acute Current Visit: No Qualifiers: Appendicitis type: acute appendicitis Acute appendicitis type: with localized peritonitis Qualified Code(s): K35.3 - Acute appendicitis with localized peritonitis (8) Dehydration syndrome SNOMED Code(s): 11402723 ICD Code: E86.0 - DEHYDRATION Status: Acute Current Visit: No (9) Elevated brain natriuretic peptide (BNP) level SNOMED Code(s): 866097621, 644828217 ICD Code: R79.89 - OTHER SPECIFIED ABNORMAL FINDINGS OF BLOOD CHEMISTRY Status: Acute Current Visit: No (10) Uncontrolled diabetes mellitus SNOMED Code(s): 889630769, 273887892 ICD Code: E11.65 - TYPE 2 DIABETES MELLITUS WITH HYPERGLYCEMIA Status: Acute Current Visit: No Qualifiers: Diabetes mellitus type: type 2 Diabetes mellitus complication status: with hyperglycemia Problem List Initiated/Reviewed/Updated: Yes Orders Last 24hrs: Active Orders 24 hr Category Date Time Status Patient Status [ADT] Routine ADT 05/14/17 11:54 Ordered Antiembolic Devices [RC] .Routine Care 05/14/17 11:58 Ordered Aspiration Precautions [RC] ASDIRECTED Care 05/14/17 12:11 Ordered Blood Glucose Check, Bedside [RC] ONETIME Care 05/14/17 07:30 Active Intake and Output [RC] QSHIFT Care 05/14/17 11:57 Ordered Oxygen Therapy [RC] PRN Care 05/14/17 11:57 Ordered Pulse Oximetry [RC] PRN Care 05/14/17 11:57 Ordered Up With Assistance [RC] ASDIRECTED Care 05/14/17 11:54 Ordered VTE/DVT Education [RC] PER UNIT ROUTINE Care 05/14/17 11:58 Ordered Vital Signs [RC] Q4H Care 05/14/17 11:54 Ordered BASIC METABOLIC PANEL,BMP [CHEM] DAILY Lab 05/14/17 18:00 Ordered BASIC METABOLIC PANEL,BMP [CHEM] DAILY Lab 05/15/17 18:00 Ordered CBC WITH AUTO DIFF [HEME] Q12H Lab 05/14/17 11:54 Ordered CBC WITH AUTO DIFF [HEME] Q12H Lab 05/14/17 23:54 Ordered CBC WITH AUTO DIFF [HEME] Q12H Lab 05/15/17 11:54 Ordered CBC WITH AUTO DIFF [HEME] Q12H Lab 05/15/17 23:54 Ordered CULTURE BLOOD [] Stat Lab 05/14/17 06:58 Received CULTURE BLOOD [] Stat Lab 05/14/17 07:09 Results CULTURE STREP A CONFIRMATION [] Stat Lab 05/14/17 07:38 Results INR,PT,PROTHROMBIN TIME [COAG] DAILY Lab 05/15/17 07:00 Ordered INR,PT,PROTHROMBIN TIME [COAG] DAILY Lab 05/16/17 07:00 Ordered STREP SCRN A RAPID W CULT CONF [] Stat Lab 05/14/17 07:38 Results Acetaminophen [Tylenol] Med 05/14/17 11:54 Ordered 650 mg PO Q4H PRN Alum Hydrox/Mag Hydrox/Simeth [Mag-Al Plus] Med 05/14/17 11:54 Ordered 30 ml PO Q4H PRN Amiodarone [Cordarone] Med 05/14/17 21:00 Ordered 200 mg PO BEDTIME Bisacodyl [Dulcolax] Med 05/14/17 11:54 Ordered 10 mg RECTAL DAILY PRN Calcium Carbonate Med 05/15/17 09:00 Ordered 1,200 mg PO DAILY Carvedilol [Carvedilol] Med 05/14/17 21:00 Ordered 3.125 mg PO BID Clopidogrel [Plavix] Med 05/15/17 09:00 Ordered 75 mg PO DAILY Dextrose 5%-0.45% NaCl [Dextrose 5%-1/2 NS] 1,000 ml Med 05/14/17 07:30 Active IV ASDIRECTED Docusate Sodium [Colace] Med 05/14/17 11:54 Ordered 100 mg PO DAILY PRN Folic Acid [Folic Acid] Med 05/15/17 09:00 Ordered 3 tab PO DAILY Furosemide [Lasix] Med 05/14/17 12:15 Ordered 40 mg PO ASDIRECTED Gabapentin [Neurontin] Med 05/14/17 21:00 Ordered 300 mg PO BID Hydroxychloroquine [Plaquenil] Med 05/15/17 09:00 Ordered 200 mg PO DAILY Insulin Aspart Med 05/14/17 12:15 Ordered 1 unit SQ ASDIRECTED Magnesium Hydroxide [Milk of Magnesia] Med 05/14/17 11:54 Ordered 30 ml PO BID PRN Multivitamin [Multivitamins] Med 05/15/17 09:00 Ordered 1 each PO DAILY Nitroglycerin [Nitrostat] Med 05/14/17 12:08 Ordered 1 tab SL ASDIRECTED PRN [place]-3/DHA/Epa/Fish Oil [Ra Fish Oil 1,000 mg Softgel] Med 05/15/17 09:00 Ordered 1 cap PO DAILY Piperacillin/Tazobactam [Zosyn] 2.25 gm Med 05/14/17 18:00 Ordered Sodium Chloride 0.9% [Normal Saline] 50 ml IV Q6HR Potassium Chloride [Klor-Con M20] Med 05/15/17 09:00 Ordered 20 meq PO DAILY Rivaroxaban [Xarelto] Med 05/15/17 09:00 Ordered 10 mg PO DAILY Sodium Chloride 0.9% @ 75 MLS/HR(1000ml) Med 05/14/17 12:15 Ordered Sodium Chloride 0.9% [Normal Saline] 1,000 ml IV ASDIRECTED Timolol Maleate [Timolol Maleate] Med 05/15/17 09:00 Ordered 1 drop EYEBOTH DAILY Valsartan/Hydrochlorothiazide [Valsartan-Hctz 320-25 mg Med 05/15/17 09:00 Ordered Tab] 325 tab PO DAILY atorvaSTATin [Lipitor] Med 05/14/17 21:00 Ordered 40 mg PO BEDTIME Anticoagulation Contraindications VTE [AST] Per Unit Oth 05/14/17 11:54 Ordered Routine Antiembolic Hose [OM.PC] Per Unit Routine Oth 05/14/17 11:59 Ordered Blood Culture x2 Reflex Set [OM.PC] Stat Oth 05/14/17 06:33 Ordered DVT/VTE Prophylaxis Reflex [OM.PC] Routine Oth 05/14/17 11:54 Ordered Resuscitation Status Routine Resus Stat 05/14/17 11:54 Ordered Medication Orders Dextrose/Sodium Chloride (Dextrose 5%-1/2 Ns) 1,000 mls @ 100 mls/hr IV ASDIRECTED [facility] Last Admin: 05/14/17 07:57 Dose: 100 mls/hr Assessment/Plan Comment:: Assessment/Plan #Altered Mental status due to hypoglycemia -Improved after hypoglycemia is corrected -PAtient AAO x 3 -will continue to monitor #Hypoglycemia due to over use of insulin -Recived 2 amps of D50 and on D5% IV infusion -Now resolved. FSG now 330 -will monitor bedside glucose closely #Acute hypoxic respiratory failure requiring oxygen -This is due to Aspiration pneumonia -will continue supplenemtal oxygen and wean off as tolerated. #Aspiration pneumonia -He recieved Levaquin in the ED -IV Zosyn -Follow blood cx -Send for sputum cx -cbc in the AM -repeat cxr in the AM -Aspirtaion precautions -Bedside swallow evaluation #DM-II -will reconcile home meds -monitor bedside glucose 4x daily #HTN -BP at goal -Continue home medications #Afib -Rate control -On xeralto for anticoagulation. will continue #H/o previous CVA with weakness -PT/OT
[2017-05-14] MEDS ORDERED: Furosemide 40 MG Tab PO SCH (12:15)
[2017-05-14] MEDS ORDERED: INSULIN ASPART 1 UNIT SQ SCH (12:15)
[2017-05-14] MEDS: Sodium Chloride 0.9% 1,000 ML IV SCH (12:15)
[2017-05-14] MEDS ORDERED: Insulin Aspart 100 Units/ML 3 ML Pen SUBCUT ONE (16:10)
[2017-05-14] MEDS: Carvedilol 3.125 MG Tab PO SCH (18:09)
[2017-05-14] MEDS: Carvedilol 6.25 MG Tab PO SCH (18:10)
[2017-05-14] MEDS: Piperacillin/Tazobactam 2.25 GM in Sodium Chloride 0.9% 100 ML IV SCH (18:41)
[2017-05-14] MEDS: Amiodarone 200 MG Tab PO SCH (21:17)
[2017-05-14] MEDS: Gabapentin 300 MG Cap PO SCH (21:17)
[2017-05-14] MEDS: atorvaSTATin 20 MG Tab PO SCH (21:17)
[2017-05-15] MEDS: Sodium Chloride 0.9% 1,000 ML IV SCH (01:42)
[2017-05-15] MEDS ORDERED: Insulin Aspart 100 Units/ML 3 ML Pen SUBCUT ONE ×3 (03:23→22:17)
[2017-05-15] MEDS: Piperacillin/Tazobactam 2.25 GM in Sodium Chloride 0.9% 100 ML IV SCH ×6 (05:56→23:30)
[2017-05-15] MEDS: Carvedilol 3.125 MG Tab PO SCH ×2 (08:53→17:58)
[2017-05-15] MEDS: Potassium Chloride 10 MEQ Tab.ER PO SCH (08:54)
[2017-05-15] MEDS: Carvedilol 6.25 MG Tab PO SCH ×2 (08:54→17:58)
[2017-05-15] MEDS: Insulin Aspart 100 Units/ML 3 ML Pen SUBCUT SCH ×5 (08:55→20:46)
[2017-05-15] MEDS ORDERED: [UNRECOGNIZED DRUG - OTHER] PO SCH (09:00)
[2017-05-15] MEDS ORDERED: FISH OIL PO SCH (09:00)
[2017-05-15] MEDS ORDERED: EPA PO SCH (09:00)
[2017-05-15] MEDS ORDERED: OMEGA PO SCH (09:00)
[2017-05-15] MEDS ORDERED: Hydrochlorothiazide 25 MG Tab PO SCH (09:00)
[2017-05-15] MEDS ORDERED: DHA PO SCH (09:00)
[2017-05-15] MEDS ORDERED: Potassium Chloride 10 MEQ in Premix Bag 1 BAG IV ONE (09:40)
--- NOTE | 2017-05-15 09:41 | PCM.PN ---
- General Info Date of Service: 05/15/17 Admission Dx/Problem (Free Text): Admission Diagnosis/Problem Admission Diagnosis/Problem Hypoglycemia Subjective Update: Patient is 71 yo male with multiple comobid including previous stroke with residual weakness and dysarhthria, HTN, DM-II on insulin. He was brought to the ED by [facility] due to altered mentation. He was found to have Hypoglycemia and Aspiration pneumonia and subsequently admitted. His mental status ahs improved since reolution of hypogkycemia. PAtient is AAAO x 3. His is off oxygen and saturating well on RA. Patient wants to be discharge. He denies any symptoms. Functional Status: Reports: Pain Controlled, Tolerating Diet, Ambulating, Urinating, Incentive Spirometry - Review of Systems General: Reports: No Symptoms HEENT: Reports: No Symptoms Pulmonary: Reports: No Symptoms Cardiovascular: Reports: No Symptoms Gastrointestinal: Reports: No Symptoms Genitourinary: Reports: No Symptoms Musculoskeletal: Reports: No Symptoms Skin: Reports: No Symptoms Neurological: Reports: No Symptoms Psychiatric: Reports: No Symptoms - Patient Data Vitals - Most Recent: Last Vital Signs Temp 98.8 F 05/15/17 08:00 Pulse 74 05/15/17 08:54 Resp 16 05/15/17 08:00 BP 134/59 L 05/15/17 08:54 Pulse Ox 96 05/15/17 08:00 Weight - Most Recent: 185 lb I&O - Last 24 Hours: Intake & Output 05/14/17 05/15/17 05/15/17 22:59 06:59 14:59 Intake Total 2137 778 Output Total 400 Balance 2137 378 Lab Results Last 24 Hours: Laboratory Results - last 24 hr 05/14/17 05/14/17 05/14/17 Range/Units 09:05 10:20 16:00 WBC (5.0-10.0) 10^3/uL RBC (4.6-6.2) 10^6/uL Hgb (14.0-18.0) g/dL Hct (40.0-54.0) % MCV (80-100) fL MCH (27.0-34.0) pg MCHC (33.0-35.0) g/dL Plt Count (150-450) 10^3/uL Neut % (Auto) (42.2-75.2) % Lymph % (Auto) (20.5-50.1) % [place] % (Auto) (2-8) % Eos % (Auto) (1.0-3.0) % Baso % (Auto) (0.0-1.0) % PT (9.0-12.0) SEC INR (0.9-1.2) Sodium (135-145) mmol/L Potassium (3.6-5.0) mmol/L Chloride (101-111) mmol/L Carbon Dioxide (21.0-31.0) mmol/L Anion Gap BUN (7-18) mg/dL Creatinine (0.6-1.3) mg/dL Est Cr Clr Drug Dosing mL/min Estimated GFR (MDRD) Glucose (74-105) mg/dL POC Glucose 226 H 304 H 436 H* (83-110) mg/dl Calcium (8.4-10.2) mg/dl 05/14/17 05/14/17 05/14/17 Range/Units 17:16 17:45 19:21 WBC 15.6 H (5.0-10.0) 10^3/uL RBC 4.04 L (4.6-6.2) 10^6/uL Hgb 11.7 L D (14.0-18.0) g/dL Hct 36.0 L (40.0-54.0) % MCV 89.1 (80-100) fL MCH 29.0 (27.0-34.0) pg MCHC 32.5 L (33.0-35.0) g/dL Plt Count 245 D (150-450) 10^3/uL Neut % (Auto) 90.8 H (42.2-75.2) % Lymph % (Auto) 3.1 L (20.5-50.1) % [place] % (Auto) 6.0 (2-8) % Eos % (Auto) 0.0 L (1.0-3.0) % Baso % (Auto) 0.1 (0.0-1.0) % PT (9.0-12.0) SEC INR (0.9-1.2) Sodium (135-145) mmol/L Potassium (3.6-5.0) mmol/L Chloride (101-111) mmol/L Carbon Dioxide (21.0-31.0) mmol/L Anion Gap BUN (7-18) mg/dL Creatinine (0.6-1.3) mg/dL Est Cr Clr Drug Dosing mL/min Estimated GFR (MDRD) Glucose (74-105) mg/dL POC Glucose 406 H* 264 H (83-110) mg/dl Calcium (8.4-10.2) mg/dl 05/14/17 05/14/17 05/14/17 Range/Units 20:18 21:16 22:16 WBC (5.0-10.0) 10^3/uL RBC (4.6-6.2) 10^6/uL Hgb (14.0-18.0) g/dL Hct (40.0-54.0) % MCV (80-100) fL MCH (27.0-34.0) pg MCHC (33.0-35.0) g/dL Plt Count (150-450) 10^3/uL Neut % (Auto) (42.2-75.2) % Lymph % (Auto) (20.5-50.1) % [place] % (Auto) (2-8) % Eos % (Auto) (1.0-3.0) % Baso % (Auto) (0.0-1.0) % PT (9.0-12.0) SEC INR (0.9-1.2) Sodium (135-145) mmol/L Potassium (3.6-5.0) mmol/L Chloride (101-111) mmol/L Carbon Dioxide (21.0-31.0) mmol/L Anion Gap BUN (7-18) mg/dL Creatinine (0.6-1.3) mg/dL Est Cr Clr Drug Dosing mL/min Estimated GFR (MDRD) Glucose (74-105) mg/dL POC Glucose 184 H 140 H 126 H (83-110) mg/dl Calcium (8.4-10.2) mg/dl 05/14/17 05/15/17 05/15/17 Range/Units 23:13 03:16 05:40 WBC (5.0-10.0) 10^3/uL RBC (4.6-6.2) 10^6/uL Hgb (14.0-18.0) g/dL Hct (40.0-54.0) % MCV (80-100) fL MCH (27.0-34.0) pg MCHC (33.0-35.0) g/dL Plt Count (150-450) 10^3/uL Neut % (Auto) (42.2-75.2) % Lymph % (Auto) (20.5-50.1) % [place] % (Auto) (2-8) % Eos % (Auto) (1.0-3.0) % Baso % (Auto) (0.0-1.0) % PT (9.0-12.0) SEC INR (0.9-1.2) Sodium 137 (135-145) mmol/L Potassium 3.3 L (3.6-5.0) mmol/L Chloride 102 (101-111) mmol/L Carbon Dioxide 26.0 (21.0-31.0) mmol/L Anion Gap 12.3 BUN 31 H (7-18) mg/dL Creatinine 1.5 H (0.6-1.3) mg/dL Est Cr Clr Drug Dosing 46.71 mL/min Estimated GFR (MDRD) 46 Glucose 232 H (74-105) mg/dL POC Glucose 123 H 261 H (83-110) mg/dl Calcium 8.3 L (8.4-10.2) mg/dl 05/15/17 05/15/17 05/15/17 Range/Units 05:40 05:40 07:30 WBC 12.2 H (5.0-10.0) 10^3/uL RBC 3.67 L (4.6-6.2) 10^6/uL Hgb 10.7 L (14.0-18.0) g/dL Hct 32.9 L (40.0-54.0) % MCV 89.6 (80-100) fL MCH 29.2 (27.0-34.0) pg MCHC 32.5 L (33.0-35.0) g/dL Plt Count 228 (150-450) 10^3/uL Neut % (Auto) 82.8 H (42.2-75.2) % Lymph % (Auto) 6.9 L (20.5-50.1) % [place] % (Auto) 9.4 H (2-8) % Eos % (Auto) 0.4 L (1.0-3.0) % Baso % (Auto) 0.5 (0.0-1.0) % PT 11.1 (9.0-12.0) SEC INR 1.1 (0.9-1.2) Sodium (135-145) mmol/L Potassium (3.6-5.0) mmol/L Chloride (101-111) mmol/L Carbon Dioxide (21.0-31.0) mmol/L Anion Gap BUN (7-18) mg/dL Creatinine (0.6-1.3) mg/dL Est Cr Clr Drug Dosing mL/min Estimated GFR (MDRD) Glucose (74-105) mg/dL POC Glucose 249 H (83-110) mg/dl Calcium (8.4-10.2) mg/dl [place] Results Last 24 Hours: Microbiology 05/14/17 07:38 Quick Strep Confirmation Culture - Final Throat NO GROUP A STREP ISOLATED Group A Streptococcus Rapid Screen - Final NEGATIVE STREP A SCREEN 05/14/17 07:09 Aerobic Blood Culture - Preliminary Blood - Venous - Lab Draw NO GROWTH AFTER 1 DAY Anaerobic Blood Culture - Final 05/14/17 06:58 Aerobic Blood Culture - Preliminary Blood - Venous NO GROWTH AFTER 1 DAY Anaerobic Blood Culture - Preliminary NO GROWTH AFTER 1 DAY 05/14/17 07:38 Influenza Type A Antigen Screen - Final Nasal, Unspecified NEGATIVE INFLUENZA A VIRUS AG Influenza Type B Antigen Screen - Final NEGATIVE INFLUENZA B VIRUS AG Med Orders - Current: Current Medications Acetaminophen (Tylenol) 650 mg PO Q4H PRN PRN Reason: Pain (mild 1-3 )/fever Al Hydroxide/Mg Hydroxide (Mag-Al Plus) 30 ml PO Q4H PRN PRN Reason: Dyspepsia Amiodarone HCl (Cordarone) 200 mg PO BEDTIME [facility] Last Admin: 05/14/17 21:17 Dose: 200 mg Atorvastatin Calcium (Lipitor) 40 mg PO BEDTIME [facility] Last Admin: 05/14/17 21:17 Dose: 40 mg Bisacodyl (Dulcolax) 10 mg RECTAL DAILY PRN PRN Reason: Constipation Calcium Carbonate/Glycine (Tums) 1,000 mg PO DAILY [facility] Carvedilol (Coreg) 3.125 mg PO BIDMEALS [facility] Last Admin: 05/15/17 08:53 Dose: 3.125 mg Carvedilol (Coreg) 12.5 mg PO BIDMEALS [facility] Last Admin: 05/15/17 08:54 Dose: 12.5 mg Clopidogrel Bisulfate (Plavix) 75 mg PO DAILY [facility] Docusate Sodium (Colace) 100 mg PO DAILY PRN PRN Reason: Constipation Folic Acid (Folic Acid) 1 mg PO DAILY [facility] Furosemide (Lasix) 40 mg PO ASDIRECTED [facility] Gabapentin (Neurontin) 300 mg PO BID [facility] Last Admin: 05/14/17 21:17 Dose: 300 mg Hydrochlorothiazide (Hydrochlorothiazide) 25 mg PO DAILY [facility] Hydroxychloroquine Sulfate (Plaquenil) 200 mg PO DAILY [facility] Piperacillin Sod/Tazobactam (Sod 2.25 gm/ Sodium Chloride) 100 mls @ 200 mls/ hr IV Q6HR [facility] Last Infusion: 05/15/17 06:32 Dose: Infused Sodium Chloride (Normal Saline) 1,000 mls @ 75 mls/hr IV ASDIRECTED [facility] Last Admin: 05/15/17 01:42 Dose: 75 mls/hr Potassium Chloride 10 meq/ (Premix) 100 mls @ 100 mls/hr IV ONETIME ONE Stop: 05/15/17 10:39 Insulin Aspart (Novolog) 0 unit SUBCUT SEECOMMENT [facility]; Protocol Magnesium Hydroxide (Milk Of Magnesia) 30 ml PO BID PRN PRN Reason: Constipation Multivitamins (Thera) 1 each PO DAILY [facility] Nitroglycerin (Nitrostat) 0.4 mg SL Q5M PRN PRN Reason: Chest Pain Non-Formulary Medication (Insulin Aspart) 1 unit SQ ASDIRECTED [facility] Non-Formulary Medication ([place]-3/Dha/Epa/Fish Oil [Ra Fish Oil 1,000 Mg Softgel ]) 1 cap PO DAILY [facility] Timolol Gfs 0.5% (Own Med) 1 drop EYEBOTH DAILY [facility] Potassium Chloride (Klor-Con 10) 20 meq PO DAILY@0800 [facility] Last Admin: 05/15/17 08:54 Dose: 20 meq Rivaroxaban (Xarelto) 10 mg PO DAILY [facility] Valsartan (Diovan) 325 mg PO DAILY [facility] Discontinued Medications Dextrose/Sodium Chloride (Dextrose 5%-1/2 Ns) 1,000 mls @ 100 mls/hr IV ASDIRECTED [facility] Last Admin: 04/06/18 07:57 Dose: 100 mls/hr Levofloxacin/Dextrose 500 mg/ (Premix) 100 mls @ 100 mls/hr IV ONETIME ONE Stop: 05/14/17 08:48 Last Admin: 05/14/17 07:57 Dose: 100 mls/hr Piperacillin Sod/Tazobactam (Sod 3.375 gm/ Sodium Chloride) 100 mls @ 200 mls/ hr IV ONETIME ONE Stop: 05/14/17 10:06 Last Admin: 05/14/17 09:53 Dose: 200 mls/hr Insulin Human Regular 100 unit (/ Sodium Chloride) 100 mls @ 8.39 mls/hr IV TITRATE [facility]YRONE; Protocol Stop: 05/15/17 05:26 Last Admin: 05/14/17 18:10 Dose: 0.1 units/kg/hr, 8.4 mls/hr Insulin Aspart (Novolog) 30 unit SUBCUT ONETIME ONE Stop: 05/14/17 16:11 Last Admin: 05/14/17 16:19 Dose: 30 units Insulin Aspart (Novolog) 0 unit SUBCUT QID [facility]; Protocol Last Admin: 05/15/17 08:55 Dose: 2 units Insulin Aspart (Novolog) 3 unit SUBCUT ONETIME ONE Stop: 05/15/17 03:24 Last Admin: 05/15/17 03:35 Dose: 3 units - Exam Quality Assessment: DVT Prophylaxis General: Alert, Oriented HEENT: Pupils Equal, Pupils Reactive, EOMI, Mucous Membr. Moist/[place] Neck: Supple Lungs: Clear to Auscultation, Normal Respiratory Effort Cardiovascular: Regular Rate, Regular Rhythm GI/Abdominal Exam: Normal Bowel Sounds, Soft, Non-Tender, No Organomegaly, No Distention, No Abnormal Bruit, No Mass, Pelvis Stable (Male) Exam: No Hernia, Normal Inspection, Normal Prostate, Circumcised Back Exam: Normal Inspection, Full Range of Motion Extremities: Normal Inspection, Normal Range of Motion, Non-Tender, No Pedal Edema, Normal Capillary Refill Skin: Warm, Dry, Intact Wound/Incisions: Healing Well Neurological: No New Focal Deficit Psy/Mental Status: Alert, Normal Affect, Normal Mood - Problem List & Annotations (1) Aspiration pneumonia SNOMED Code(s): 289083912 Code(s): J69.0 - PNEUMONITIS DUE TO INHALATION OF FOOD AND VOMIT Status: Acute Current Visit: Yes Qualifiers: Aspiration pneumonia type: unspecified Laterality: left Lung location: lower lobe of lung Qualified Code(s): J69.0 - Pneumonitis due to inhalation of food and vomit (2) Chronic CHF (congestive heart failure) SNOMED Code(s): 33951051 Code(s): I50.9 - HEART FAILURE, UNSPECIFIED Status: Acute Current Visit: Yes Qualifiers: Heart failure type: unspecified Qualified Code(s): I50.9 - Heart failure, unspecified (3) Chronic atrial fibrillation SNOMED Code(s): 729024263 Code(s): I48.2 - CHRONIC ATRIAL FIBRILLATION Status: Acute Current Visit : Yes (4) Chronic kidney disease SNOMED Code(s): 121214655 Code(s): N18.9 - CHRONIC KIDNEY DISEASE, UNSPECIFIED Status: Acute Current Visit: Yes Qualifiers: Chronic kidney disease stage: unspecified stage Qualified Code(s): N18.9 - Chronic kidney disease, unspecified (5) Diabetes mellitus type 2, insulin dependent SNOMED Code(s): 861251562 Code(s): E11.9 - TYPE 2 DIABETES MELLITUS WITHOUT COMPLICATIONS; Z79.4 - SCHEDULING ADMINISTRATOR (CURRENT) USE OF INSULIN Status: Acute Current Visit: Yes (6) Hypoglycemia due to insulin SNOMED Code(s): 698765757 Code(s): E16.0 - DRUG-INDUCED HYPOGLYCEMIA WITHOUT COMA; T38.3X5A - ADVERSE EFFECT OF INSULIN AND ORAL HYPOGLYCEMIC DRUGS, INIT Status: Acute Current Visit: Yes (7) Appendicitis SNOMED Code(s): 34525965 Code(s): K37 - UNSPECIFIED APPENDICITIS Status: Acute Current Visit: No Qualifiers: Appendicitis type: acute appendicitis Acute appendicitis type: with localized peritonitis Qualified Code(s): K35.3 - Acute appendicitis with localized peritonitis (8) Dehydration syndrome SNOMED Code(s): 05457785 Code(s): E86.0 - DEHYDRATION Status: Acute Current Visit: No (9) Elevated brain natriuretic peptide (BNP) level SNOMED Code(s): 628857941, 218267595 Code(s): R79.89 - OTHER SPECIFIED ABNORMAL FINDINGS OF BLOOD CHEMISTRY Status: Acute Current Visit: No (10) Uncontrolled diabetes mellitus SNOMED Code(s): 822347375, 765188257 Code(s): E11.65 - TYPE 2 DIABETES MELLITUS WITH HYPERGLYCEMIA Status: Acute Current Visit: No Qualifiers: Diabetes mellitus type: type 2 Diabetes mellitus complication status: with hyperglycemia - Problem List Review Problem List Initiated/Reviewed/Updated: Yes - My Orders Last 24 Hours: My Active Orders 05/14/17 11:54 Patient Status [ADT] Routine Up With Assistance [RC] ASDIRECTED Vital Signs [RC] Q4H Acetaminophen [Tylenol] 650 mg PO Q4H PRN Alum Hydrox/Mag Hydrox/Simeth [Mag-Al Plus] 30 ml PO Q4H PRN Bisacodyl [Dulcolax] 10 mg RECTAL DAILY PRN Docusate Sodium [Colace] 100 mg PO DAILY PRN Magnesium Hydroxide [Milk of Magnesia] 30 ml PO BID PRN Anticoagulation Contraindications VTE [AST] Per Unit Routine DVT/VTE Prophylaxis Reflex [OM.PC] Routine Resuscitation Status Routine 05/14/17 11:57 Intake and Output [RC] QSHIFT Oxygen Therapy [RC] PRN Pulse Oximetry [RC] PRN 05/14/17 11:58 Antiembolic Devices [RC] 08,20 VTE/DVT Education [RC] PER UNIT ROUTINE 05/14/17 11:59 Antiembolic Hose [OM.PC] Per Unit Routine 05/14/17 12:08 Nitroglycerin [Nitrostat] 0.4 mg SL Q5M PRN 05/14/17 12:11 Aspiration Precautions [RC] ASDIRECTED 05/14/17 12:15 Furosemide [Lasix] 40 mg PO ASDIRECTED Insulin Aspart 1 unit SQ ASDIRECTED Sodium Chloride 0.9% [Normal Saline] 1,000 ml IV ASDIRECTED 05/14/17 15:49 Consult to Speech Language Pathology [W[employer]IPPER Evaluation and Treatment] [CONS] Routine 05/14/17 18:00 Carvedilol [Coreg] 12.5 mg PO BIDMEALS Carvedilol [Coreg] 3.125 mg PO BIDMEALS Piperacillin/Tazobactam [Zosyn] 2.25 gm Sodium Chloride 0.9% [Normal Saline] 100 ml IV Q6HR 05/14/17 20:28 Communication Order [RC] DAILY 05/14/17 21:00 Amiodarone [Cordarone] 200 mg PO BEDTIME Gabapentin [Neurontin] 300 mg PO BID atorvaSTATin [Lipitor] 40 mg PO BEDTIME 05/14/17 Dinner Consistent Carbohydrate Diet [DIET] Mechanical Soft Diet [DIET] 05/15/17 07:00 Blood Glucose Check, Bedside [RC] 07,11,17,21 05/15/17 08:00 Potassium Chloride [Klor-Con 10] 20 meq PO DAILY@0800 05/15/17 09:00 Calcium Carbonate [Tums] 1,000 mg PO DAILY Clopidogrel [Plavix] 75 mg PO DAILY Folic Acid 1 mg PO DAILY Hydrochlorothiazide 25 mg PO DAILY Hydroxychloroquine [Plaquenil] 200 mg PO DAILY Multivitamins,Therapeutic [Thera] 1 each PO DAILY [place]-3/DHA/Epa/Fish Oil [Ra Fish Oil 1,000 mg Softgel] 1 cap PO DAILY Rivaroxaban [Xarelto] 10 mg PO DAILY Timolol Maleate [Timolol Maleate] 1 drop EYEBOTH DAILY Valsartan [Diovan] 325 mg PO DAILY 05/15/17 09:40 Potassium Chloride [KCl 10 MEQ in Water 100 ML] 10 meq Premix Bag 1 bag IV ONETIME 05/15/17 11:00 Insulin Aspart [NovoLOG] 0 unit SUBCUT SEECOMMENT 05/15/17 11:54 CBC WITH AUTO DIFF [HEME] Q12H 05/15/17 18:00 BASIC METABOLIC PANEL,BMP [CHEM] DAILY 05/15/17 23:54 CBC WITH AUTO DIFF [HEME] Q12H 05/16/17 07:00 INR,PT,PROTHROMBIN TIME [COAG] DAILY - Plan Plan:: Assessment/Plan #Altered Mental status due to hypoglycemia -Improved after hypoglycemia is corrected -Patient AAO x 3 -will continue to monitor #Hypoglycemia due to over use of insulin -Resolved -will monitor bedside glucose closely #Acute hypoxic respiratory failure requiring oxygen -This is due to Aspiration pneumonia -Improved. Off oxygen #Aspiration pneumonia -will start Levaquin -D/c IV Zosyn -Follow blood cx -Send for sputum cx -cbc daily -Aspirtaion precautions -Bedside swallow evaluation pending #DM-II -Uncontrolled today -Insulin sliding scale -Continue home insuline regimen -monitor bedside glucose 4x daily #HTN -BP at goal -Continue home medications #Afib -Rate control -On xeralto for anticoagulation. will continue #H/o previous CVA with weakness -PT/OT
[2017-05-15] MEDS: Gabapentin 300 MG Cap PO SCH ×2 (10:23→20:45)
[2017-05-15] MEDS: Hydrochlorothiazide 25 MG Tab PO SCH (10:23)
[2017-05-15] MEDS: Rivaroxaban 10 MG Tab PO SCH (10:23)
[2017-05-15] MEDS: Calcium Carbonate 500 MG Tab.Chew PO SCH (10:24)
[2017-05-15] MEDS: Multivitamins,Therapeutic Tab PO SCH (10:25)
[2017-05-15] MEDS: Hydroxychloroquine 200 MG Tab PO SCH (10:25)
[2017-05-15] MEDS: Folic Acid 1 MG Tab PO SCH (10:25)
[2017-05-15] MEDS: Clopidogrel 75 MG Tab PO SCH (10:26)
[2017-05-15] MEDS: TIMOLOL GFS 0.5% EYEBOTH SCH (10:35)
[2017-05-15] MEDS ORDERED: Insulin Aspart 100 Units/ML 3 ML Pen SUBCUT SCH ×2 (11:00→11:15)
[2017-05-15] MEDS: Furosemide 40 MG Tab PO SCH (13:46)
[2017-05-15] MEDS: LEFLUNOMIDE 20 MG PO SCH (17:56)
[2017-05-15] MEDS ORDERED: Menthol/Methyl Salicylate 85 GM Tube TOP PRN (18:24)
[2017-05-15] MEDS: atorvaSTATin 20 MG Tab PO SCH (20:44)
[2017-05-15] MEDS: Amiodarone 200 MG Tab PO SCH (20:45)
[2017-05-15] MEDS: Insulin Detemir 100 Units/ML 3 ML Pen SUBCUT SCH (20:45)
[2017-05-16] MEDS ORDERED: 50% Dextrose in Water 50 ML Syringe IVPUSH ONE (03:25)
[2017-05-16] MEDS: Piperacillin/Tazobactam 2.25 GM in Sodium Chloride 0.9% 100 ML IV SCH (05:33)
[2017-05-16] MEDS: Insulin Aspart 100 Units/ML 3 ML Pen SUBCUT SCH (08:33)
[2017-05-16] MEDS: Insulin Detemir 100 Units/ML 3 ML Pen SUBCUT SCH (08:33)
[2017-05-16] MEDS: Carvedilol 6.25 MG Tab PO SCH (08:50)
[2017-05-16] MEDS: Carvedilol 3.125 MG Tab PO SCH (08:50)
[2017-05-16] MEDS: Potassium Chloride 10 MEQ Tab.ER PO SCH (08:51)
[2017-05-16 08:52] VITALS: BP 146/64
[2017-05-16] MEDS: Calcium Carbonate 500 MG Tab.Chew PO SCH (09:36)
[2017-05-16] MEDS: Furosemide 40 MG Tab PO SCH (09:37)
[2017-05-16] MEDS: Hydrochlorothiazide 25 MG Tab PO SCH (09:37)
[2017-05-16] MEDS: Folic Acid 1 MG Tab PO SCH (09:37)
[2017-05-16] MEDS: Gabapentin 300 MG Cap PO SCH (09:38)
[2017-05-16] MEDS: LEFLUNOMIDE 20 MG PO SCH (09:38)
[2017-05-16] MEDS: Multivitamins,Therapeutic Tab PO SCH (09:39)
[2017-05-16] MEDS: Rivaroxaban 10 MG Tab PO SCH (09:39)
[2017-05-16] MEDS: TIMOLOL GFS 0.5% EYEBOTH SCH (09:39)
[2017-05-16] MEDS: Clopidogrel 75 MG Tab PO SCH (09:39)
[2017-05-16] MEDS: Hydroxychloroquine 200 MG Tab PO SCH (09:39)
--- NOTE | 2017-05-16 11:09 | PCM.DCSUM1 ---
Discharge Summary - Hospital Course Free Text/Narrative:: Patient is 71 yo male with multiple comobid including previous stroke with residual weakness and dysarhthria, HTN, DM-II on insulin. He was brought to the ED by [facility] due to altered mentation. He was found to have Hypoglycemia and Aspiration pneumonia and subsequently admitted. His mental status has improved since resolution of hypoglycemia. Patient is AAAO x 3. His is off oxygen and saturating well on RA. He is stable for discharge. He will follow with his PCP. - Discharge Data Discharge Date: 05/16/17 Discharge Disposition: Home, Self-Care 01 Condition: Good - Discharge Diagnosis/Problem(s) (1) Aspiration pneumonia SNOMED Code(s): 705791259 ICD Code: J69.0 - PNEUMONITIS DUE TO INHALATION OF FOOD AND VOMIT Status: Acute Current Visit: Yes Qualifiers: Aspiration pneumonia type: unspecified Laterality: left Lung location: lower lobe of lung Qualified Code(s): J69.0 - Pneumonitis due to inhalation of food and vomit (2) Chronic CHF (congestive heart failure) SNOMED Code(s): 68316601 ICD Code: I50.9 - HEART FAILURE, UNSPECIFIED Status: Acute Current Visit : Yes Qualifiers: Heart failure type: unspecified Qualified Code(s): I50.9 - Heart failure, unspecified (3) Chronic atrial fibrillation SNOMED Code(s): 618026003 ICD Code: I48.2 - CHRONIC ATRIAL FIBRILLATION Status: Acute Current Visit : Yes (4) Chronic kidney disease SNOMED Code(s): 524782050 ICD Code: N18.9 - CHRONIC KIDNEY DISEASE, UNSPECIFIED Status: Acute Current Visit: Yes Qualifiers: Chronic kidney disease stage: unspecified stage Qualified Code(s): N18.9 - Chronic kidney disease, unspecified (5) Diabetes mellitus type 2, insulin dependent SNOMED Code(s): 834651018 ICD Code: E11.9 - TYPE 2 DIABETES MELLITUS WITHOUT COMPLICATIONS; Z79.4 - C ARCHITECT (CURRENT) USE OF INSULIN Status: Acute Current Visit: Yes (6) Hypoglycemia due to insulin SNOMED Code(s): 154413433 ICD Code: E16.0 - DRUG-INDUCED HYPOGLYCEMIA WITHOUT COMA; T38.3X5A - ADVERSE EFFECT OF INSULIN AND ORAL HYPOGLYCEMIC DRUGS, INIT Status: Acute Current Visit: Yes (7) Appendicitis SNOMED Code(s): 52114327 ICD Code: K37 - UNSPECIFIED APPENDICITIS Status: Acute Current Visit: No Qualifiers: Appendicitis type: acute appendicitis Acute appendicitis type: with localized peritonitis Qualified Code(s): K35.3 - Acute appendicitis with localized peritonitis (8) Dehydration syndrome SNOMED Code(s): 65257147 ICD Code: E86.0 - DEHYDRATION Status: Acute Current Visit: No (9) Elevated brain natriuretic peptide (BNP) level SNOMED Code(s): 462802290, 624947542 ICD Code: R79.89 - OTHER SPECIFIED ABNORMAL FINDINGS OF BLOOD CHEMISTRY Status: Acute Current Visit: No (10) Uncontrolled diabetes mellitus SNOMED Code(s): 858850634, 191978350 ICD Code: E11.65 - TYPE 2 DIABETES MELLITUS WITH HYPERGLYCEMIA Status: Acute Current Visit: No Qualifiers: Diabetes mellitus type: type 2 Diabetes mellitus complication status: with hyperglycemia - Patient Summary/Data Consults: Consultations 05/14/17 15:49 Consult to Speech Language Pathology [ANALYTICS LEAD Evaluation and Treatment] [CONS] Routine - Patient Instructions Diet: Heart Healthy Diet Fluid Restriction: 1500 mL Activity: As Tolerated Showering/Bathing: May Shower Notify Provider of: Fever, Increased Pain, Swelling and Redness, Nausea and/or Vomiting - Discharge Plan Home Medications: Home Meds Calcium Carbonate [Calcium] 1,200 mg PO DAILY 06/21/13 [History] Clopidogrel Bisulfate [Plavix] 75 mg PO DAILY 06/21/13 [History] Folic Acid 3 tab PO DAILY 06/21/13 [History] Gabapentin [Neurontin] 300 mg PO BID 06/21/13 [History] Hydroxychloroquine Sulfate [Plaquenil] 200 mg PO DAILY 06/21/13 [History] Insulin Aspart [NovoLOG] 1 unit SQ ASDIRECTED 06/21/13 [History] Multivitamin [Multivitamins] 1 each PO DAILY 06/21/13 [History] Nitroglycerin [Nitrostat] 1 tab SL ASDIRECTED PRN 06/21/13 [History] [place]-3/DHA/Epa/Fish Oil [Ra Fish Oil 1,000 mg Softgel] 1 cap PO DAILY 06/21/13 [History] atorvaSTATin [Lipitor] 40 mg PO BEDTIME 06/21/13 [History] Carvedilol 12.5 mg PO BID 05/25/14 [History] Amiodarone [Cordarone] 200 mg PO BEDTIME 11/02/15 [History] Furosemide [Lasix] 40 mg PO DAILY PRN 11/02/15 [History] Rivaroxaban [Xarelto] 10 mg PO DAILY 11/02/15 [History] Valsartan/Hydrochlorothiazide [Valsartan-Hctz 320-25 mg Tab] 325 tab PO DAILY [History] Potassium Chloride [Klor-Con M20] 20 meq PO DAILY 11/03/15 [History] Timolol Maleate 1 drop EYEBOTH DAILY 11/03/15 [History] Carvedilol 3.125 mg PO BID 05/14/17 [History] Leflunomide 20 mg PO DAILY 05/14/17 [History] Patient Handouts: Hyperglycemia, [id number], Aspiration Pneumonia, Hypoglycemia, [id number] Forms: ED Department Discharge Referrals: Chino Alaniz MD [Primary Care Provider] - - Discharge Summary/Plan Comment DC Time >30 min.: Yes - General Info Admission Dx/Problem (Free Text: Admission Diagnosis/Problem Admission Diagnosis/Problem Hypoglycemia Subjective Update: Patient is 71 yo male with multiple comobid including previous stroke with residual weakness and dysarhthria, HTN, DM-II on insulin. He was brought to the ED by [facility] due to altered mentation. He was found to have Hypoglycemia and Aspiration pneumonia and subsequently admitted. His mental status ahs improved since reolution of hypogkycemia. PAtient is AAAO x 3. His is off oxygen and saturating well on RA. Patient wants to be discharge. He denies any symptoms. Functional Status: Reports: Pain Controlled - Review of Systems General: Reports: No Symptoms HEENT: Reports: No Symptoms Pulmonary: Reports: No Symptoms Cardiovascular: Reports: No Symptoms Gastrointestinal: Reports: No Symptoms Genitourinary: Reports: No Symptoms Musculoskeletal: Reports: No Symptoms Skin: Reports: No Symptoms Neurological: Reports: No Symptoms Psychiatric: Reports: No Symptoms - Patient Data Vitals - Most Recent: Last Vital Signs Temp 99.4 F 05/16/17 08:00 Pulse 74 05/16/17 08:50 Resp 16 05/16/17 08:00 BP 146/64 H 05/16/17 09:36 Pulse Ox 96 05/16/17 08:00 Weight - Most Recent: 185 lb I&O - Last 24 hours: Intake & Output 05/15/17 05/16/17 05/16/17 22:59 06:59 14:59 Intake Total 1540 191 Output Total 1225 200 200 Balance 315 -9 -200 Lab Results - Last 24 hrs: Laboratory Results - last 24 hr 05/15/17 05/15/17 05/15/17 Range/Units 11:18 11:56 16:53 WBC 10.2 H (5.0-10.0) 10^3/uL RBC 3.72 L (4.6-6.2) 10^6/uL Hgb 10.7 L (14.0-18.0) g/dL Hct 33.4 L (40.0-54.0) % MCV 89.8 (80-100) fL MCH 28.8 (27.0-34.0) pg MCHC 32.0 L (33.0-35.0) g/dL Plt Count 212 (150-450) 10^3/uL Neut % (Auto) 83.9 H (42.2-75.2) % Lymph % (Auto) 7.4 L (20.5-50.1) % Davis % (Auto) 7.7 (2-8) % Eos % (Auto) 0.6 L (1.0-3.0) % Baso % (Auto) 0.4 (0.0-1.0) % PT (9.0-12.0) SEC INR (0.9-1.2) Sodium (135-145) mmol/L Potassium (3.6-5.0) mmol/L Chloride (101-111) mmol/L Carbon Dioxide (21.0-31.0) mmol/L Anion Gap BUN (7-18) mg/dL Creatinine (0.6-1.3) mg/dL Est Cr Clr Drug Dosing mL/min Estimated GFR (MDRD) Glucose (74-105) mg/dL POC Glucose 385 H 323 H (83-110) mg/dl Calcium (8.4-10.2) mg/dl 05/15/17 05/15/17 05/15/17 Range/Units 18:05 20:35 22:10 WBC (5.0-10.0) 10^3/uL RBC (4.6-6.2) 10^6/uL Hgb (14.0-18.0) g/dL Hct (40.0-54.0) % MCV (80-100) fL MCH (27.0-34.0) pg MCHC (33.0-35.0) g/dL Plt Count (150-450) 10^3/uL Neut % (Auto) (42.2-75.2) % Lymph % (Auto) (20.5-50.1) % Davis % (Auto) (2-8) % Eos % (Auto) (1.0-3.0) % Baso % (Auto) (0.0-1.0) % PT (9.0-12.0) SEC INR (0.9-1.2) Sodium 132 L (135-145) mmol/L Potassium 4.1 (3.6-5.0) mmol/L Chloride 97 L (101-111) mmol/L Carbon Dioxide 24.0 (21.0-31.0) mmol/L Anion Gap 15.1 BUN 29 H (7-18) mg/dL Creatinine 1.5 H (0.6-1.3) mg/dL Est Cr Clr Drug Dosing 46.71 mL/min Estimated GFR (MDRD) 46 Glucose 423 H* (74-105) mg/dL POC Glucose 374 H 303 H (83-110) mg/dl Calcium 8.6 (8.4-10.2) mg/dl 05/15/17 05/15/17 05/16/17 Range/Units 23:30 23:55 03:19 WBC 7.9 (5.0-10.0) 10^3/uL RBC 3.83 L (4.6-6.2) 10^6/uL Hgb 11.1 L (14.0-18.0) g/dL Hct 33.8 L (40.0-54.0) % MCV 88.3 (80-100) fL MCH 29.0 (27.0-34.0) pg MCHC 32.8 L (33.0-35.0) g/dL Plt Count 222 (150-450) 10^3/uL Neut % (Auto) 73.2 (42.2-75.2) % Lymph % (Auto) 13.0 L (20.5-50.1) % Davis % (Auto) 9.4 H (2-8) % Eos % (Auto) 3.4 H (1.0-3.0) % Baso % (Auto) 1.0 (0.0-1.0) % PT (9.0-12.0) SEC INR (0.9-1.2) Sodium (135-145) mmol/L Potassium (3.6-5.0) mmol/L Chloride (101-111) mmol/L Carbon Dioxide (21.0-31.0) mmol/L Anion Gap BUN (7-18) mg/dL Creatinine (0.6-1.3) mg/dL Est Cr Clr Drug Dosing mL/min Estimated GFR (MDRD) Glucose (74-105) mg/dL POC Glucose 173 H < 20 L* (83-110) mg/dl Calcium (8.4-10.2) mg/dl 05/16/17 05/16/17 05/16/17 Range/Units 03:40 04:31 05:35 WBC (5.0-10.0) 10^3/uL RBC (4.6-6.2) 10^6/uL Hgb (14.0-18.0) g/dL Hct (40.0-54.0) % MCV (80-100) fL MCH (27.0-34.0) pg MCHC (33.0-35.0) g/dL Plt Count (150-450) 10^3/uL Neut % (Auto) (42.2-75.2) % Lymph % (Auto) (20.5-50.1) % Davis % (Auto) (2-8) % Eos % (Auto) (1.0-3.0) % Baso % (Auto) (0.0-1.0) % PT (9.0-12.0) SEC INR (0.9-1.2) Sodium (135-145) mmol/L Potassium (3.6-5.0) mmol/L Chloride (101-111) mmol/L Carbon Dioxide (21.0-31.0) mmol/L Anion Gap BUN (7-18) mg/dL Creatinine (0.6-1.3) mg/dL Est Cr Clr Drug Dosing mL/min Estimated GFR (MDRD) Glucose (74-105) mg/dL POC Glucose 133 H 123 H 147 H (83-110) mg/dl Calcium (8.4-10.2) mg/dl 05/16/17 05/16/17 05/16/17 Range/Units 06:11 06:35 07:33 WBC (5.0-10.0) 10^3/uL RBC (4.6-6.2) 10^6/uL Hgb (14.0-18.0) g/dL Hct (40.0-54.0) % MCV (80-100) fL MCH (27.0-34.0) pg MCHC (33.0-35.0) g/dL Plt Count (150-450) 10^3/uL Neut % (Auto) (42.2-75.2) % Lymph % (Auto) (20.5-50.1) % Davis % (Auto) (2-8) % Eos % (Auto) (1.0-3.0) % Baso % (Auto) (0.0-1.0) % PT 11.1 (9.0-12.0) SEC INR 1.1 (0.9-1.2) Sodium (135-145) mmol/L Potassium (3.6-5.0) mmol/L Chloride (101-111) mmol/L Carbon Dioxide (21.0-31.0) mmol/L Anion Gap BUN (7-18) mg/dL Creatinine (0.6-1.3) mg/dL Est Cr Clr Drug Dosing mL/min Estimated GFR (MDRD) Glucose (74-105) mg/dL POC Glucose 163 H 169 H (83-110) mg/dl Calcium (8.4-10.2) mg/dl 05/16/17 05/16/17 05/16/17 Range/Units 08:29 09:31 10:31 WBC (5.0-10.0) 10^3/uL RBC (4.6-6.2) 10^6/uL Hgb (14.0-18.0) g/dL Hct (40.0-54.0) % MCV (80-100) fL MCH (27.0-34.0) pg MCHC (33.0-35.0) g/dL Plt Count (150-450) 10^3/uL Neut % (Auto) (42.2-75.2) % Lymph % (Auto) (20.5-50.1) % Davis % (Auto) (2-8) % Eos % (Auto) (1.0-3.0) % Baso % (Auto) (0.0-1.0) % PT (9.0-12.0) SEC INR (0.9-1.2) Sodium (135-145) mmol/L Potassium (3.6-5.0) mmol/L Chloride (101-111) mmol/L Carbon Dioxide (21.0-31.0) mmol/L Anion Gap BUN (7-18) mg/dL Creatinine (0.6-1.3) mg/dL Est Cr Clr Drug Dosing mL/min Estimated GFR (MDRD) Glucose (74-105) mg/dL POC Glucose 157 H 248 H 238 H (83-110) mg/dl Calcium (8.4-10.2) mg/dl NIKHIL Results - Last 24 hrs: Microbiology 05/14/17 07:09 Aerobic Blood Culture - Preliminary Blood - Venous - Lab Draw NO GROWTH AFTER 2 DAYS Anaerobic Blood Culture - Final 05/14/17 06:58 Aerobic Blood Culture - Preliminary Blood - Venous NO GROWTH AFTER 2 DAYS Anaerobic Blood Culture - Preliminary NO GROWTH AFTER 2 DAYS 05/14/17 07:38 Quick Strep Confirmation Culture - Final Throat NO GROUP A STREP ISOLATED Group A Streptococcus Rapid Screen - Final NEGATIVE STREP A SCREEN Med Orders - Current: Current Medications Acetaminophen (Tylenol) 650 mg PO Q4H PRN PRN Reason: Pain (mild 1-3 )/fever Al Hydroxide/Mg Hydroxide (Mag-Al Plus) 30 ml PO Q4H PRN PRN Reason: Dyspepsia Amiodarone HCl (Cordarone) 200 mg PO BEDTIME [facility] Last Admin: 05/15/17 20:45 Dose: 200 mg Atorvastatin Calcium (Lipitor) 40 mg PO BEDTIME [facility] Last Admin: 05/15/17 20:44 Dose: 40 mg Bisacodyl (Dulcolax) 10 mg RECTAL DAILY PRN PRN Reason: Constipation Calcium Carbonate/Glycine (Tums) 1,000 mg PO DAILY [facility] Last Admin: 05/16/17 09:36 Dose: 1,000 mg Carvedilol (Coreg) 12.5 mg PO BIDMEALS [facility] Last Admin: 05/16/17 08:50 Dose: 12.5 mg Carvedilol (Coreg) 3.125 mg PO BIDMEALS [facility] Last Admin: 05/16/17 08:50 Dose: 3.125 mg Clopidogrel Bisulfate (Plavix) 75 mg PO DAILY [facility] Last Admin: 05/16/17 09:39 Dose: 75 mg Docusate Sodium (Colace) 100 mg PO DAILY PRN PRN Reason: Constipation Folic Acid (Folic Acid) 1 mg PO DAILY [facility] Last Admin: 05/16/17 09:37 Dose: 1 mg Furosemide (Lasix) 40 mg PO DAILY [facility] Last Admin: 05/16/17 09:37 Dose: 40 mg Gabapentin (Neurontin) 300 mg PO BID [facility] Last Admin: 05/16/17 09:38 Dose: 300 mg Hydrochlorothiazide (Hydrochlorothiazide) 25 mg PO DAILY [facility] Last Admin: 05/16/17 09:37 Dose: 25 mg Hydroxychloroquine Sulfate (Plaquenil) 200 mg PO DAILY [facility] Last Admin: 05/16/17 09:39 Dose: 200 mg Piperacillin Sod/Tazobactam (Sod 2.25 gm/ Sodium Chloride) 100 mls @ 200 mls/ hr IV Q6HR [facility] Last Infusion: 05/16/17 06:09 Dose: Infused Insulin Aspart (Novolog) 0 unit SUBCUT 0700,1100,1700,2100 [facility]; Protocol Last Admin: 05/16/17 08:33 Dose: 2 units Insulin Detemir (Levemir) 15 unit SUBCUT BID [facility] Last Admin: 05/16/17 08:33 Dose: 15 units Magnesium Hydroxide (Milk Of Magnesia) 30 ml PO BID PRN PRN Reason: Constipation Methyl Salicylate (Icy Hot Cream) 0 gm TOP TID PRN PRN Reason: Pain Multivitamins (Thera) 1 each PO DAILY [facility] Last Admin: 05/16/17 09:39 Dose: 1 each Nitroglycerin (Nitrostat) 0.4 mg SL Q5M PRN PRN Reason: Chest Pain Non-Formulary Medication ([place]-3/Dha/Epa/Fish Oil [Ra Fish Oil 1,000 Mg Softgel ]) 1 cap PO DAILY [facility] Timolol Gfs 0.5% (Own Med) 1 drop EYEBOTH DAILY [facility] Last Admin: 05/16/17 09:39 Dose: 1 drop Leflunomide 20 Mg (Tab Own Med) 0 mg PO DAILY [facility] Last Admin: 05/16/17 09:38 Dose: 20 mg Potassium Chloride (Klor-Con 10) 20 meq PO DAILY@0800 [facility] Last Admin: 05/16/17 08:51 Dose: 20 meq Rivaroxaban (Xarelto) 10 mg PO DAILY [facility] Last Admin: 05/16/17 09:39 Dose: 10 mg Valsartan (Diovan) 320 mg PO DAILY [facility] Last Admin: 05/16/17 09:36 Dose: 320 mg Discontinued Medications Carvedilol (Coreg) 3.125 mg PO BIDMEALS [facility] Last Admin: 05/15/17 08:53 Dose: 3.125 mg Dextrose/Water (Dextrose 50% In Water) 50 ml IVPUSH ONETIME ONE Stop: 05/16/17 03:26 Last Admin: 05/16/17 03:30 Dose: 50 ml Furosemide (Lasix) 40 mg PO ASDIRECTED [facility] Hydrochlorothiazide (Hydrochlorothiazide) 25 mg PO DAILY [facility] Last Admin: 05/15/17 11:12 Dose: Not Given Dextrose/Sodium Chloride (Dextrose 5%-1/2 Ns) 1,000 mls @ 100 mls/hr IV ASDIRECTED [facility] Last Admin: 05/14/17 07:57 Dose: 100 mls/hr Levofloxacin/Dextrose 500 mg/ (Premix) 100 mls @ 100 mls/hr IV ONETIME ONE Stop: 05/14/17 08:48 Last Admin: 05/14/17 07:57 Dose: 100 mls/hr Piperacillin Sod/Tazobactam (Sod 3.375 gm/ Sodium Chloride) 100 mls @ 200 mls/ hr IV ONETIME ONE Stop: 05/14/17 10:06 Last Admin: 05/14/17 09:53 Dose: 200 mls/hr Sodium Chloride (Normal Saline) 1,000 mls @ 75 mls/hr IV ASDIRECTED [facility] Last Infusion: 05/15/17 11:38 Dose: 75 mls/hr Insulin Human Regular 100 unit (/ Sodium Chloride) 100 mls @ 8.39 mls/hr IV TITRATE [facility]; Protocol Stop: 05/15/17 05:26 Last Admin: 05/14/17 18:10 Dose: 0.1 units/kg/hr, 8.4 mls/hr Potassium Chloride 10 meq/ (Premix) 100 mls @ 100 mls/hr IV ONETIME ONE Stop: 05/15/17 10:39 Last Infusion: 05/15/17 11:37 Dose: Infused Insulin Aspart (Novolog) 30 unit SUBCUT ONETIME ONE Stop: 05/14/17 16:11 Last Admin: 05/14/17 16:19 Dose: 30 units Insulin Aspart (Novolog) 0 unit SUBCUT QID [facility]; Protocol Last Admin: 05/15/17 11:13 Dose: Not Given Insulin Aspart (Novolog) 3 unit SUBCUT ONETIME ONE Stop: 05/15/17 03:24 Last Admin: 05/15/17 03:35 Dose: 3 units Insulin Aspart (Novolog) 0 unit SUBCUT SEECOMMENT [facility]; Protocol Insulin Aspart (Novolog) 0 unit SUBCUT 0700,1100,1700,2100 [facility]; Protocol Last Admin: 05/15/17 12:37 Dose: Not Given Insulin Aspart (Novolog) 30 unit SUBCUT ONETIME ONE Stop: 05/15/17 20:47 Last Admin: 05/15/17 20:52 Dose: 30 units Insulin Aspart (Novolog) 30 unit SUBCUT ONETIME ONE Stop: 05/15/17 22:18 Last Admin: 05/15/17 22:24 Dose: 30 units Non-Formulary Medication (Insulin Aspart) 1 unit SQ ASDIRECTED [facility] Valsartan (Diovan) 325 mg PO DAILY [facility] Last Admin: 05/15/17 11:12 Dose: Not Given - Exam Quality Assessment: Reports: DVT Prophylaxis General: Reports: Alert, Oriented HEENT: Reports: Pupils Equal, Pupils Reactive, EOMI, Mucous Membr. Moist/[place] Neck: Reports: Supple Lungs: Reports: Clear to Auscultation, Normal Respiratory Effort Cardiovascular: Reports: Regular Rate, Regular Rhythm GI/Abdominal Exam: Normal Bowel Sounds, Soft, Non-Tender, No Organomegaly, No Distention, No Abnormal Bruit, No Mass, Pelvis Stable (Male) Exam: No Hernia, Normal Inspection, Normal Prostate, Circumcised Rectal (Males) Exam: Normal Exam, Normal Rectal Tone, Prostate Normal Back Exam: Reports: Normal Inspection, Full Range of Motion Extremities: Normal Inspection, Normal Range of Motion, Non-Tender, No Pedal Edema, Normal Capillary Refill Skin: Reports: Warm, Dry, Intact Wound/Incisions: Reports: Healing Well Neurological: Reports: No New Focal Deficit Psy/Mental Status: Reports: Alert, Normal Affect, Normal Mood *Q Meaningful Use (DIS) - VTE *Q VTE Anticoagulation Contraindications: Alternative [place] Request PT
--- NOTE | 2017-05-18 12:45 | EKG ---
05/14/2017 - BRANDI GILLIS - TIME: 7:00 a.m. After my reading, EKG shows atrial fibrillation. [facility] /[id number]
== END 2017-05-16 13:43 | disposition home or self-care (01) | DRG 177 ==
LOC: DL.ED 06:48 → DL.MS 10:41 → UNDOADMIN 10:41 → DL.MS 11:54
PROVIDERS: ADMIT Student in an Organized Health Care Education/Training Program; ATTEND Student in an Organized Health Care Education/Training Program
DX: J69.0 Pneumonitis due to inhalation of food and vomit (principal); R41.82 Altered mental status, unspecified; R05 Cough; J96.01 Acute respiratory failure with hypoxia; F05 Delirium due to known physiological condition; I13.0 Hypertensive heart and chronic kidney disease with heart failure and stage 1 through stage 4 chronic kidney disease, or unspecified chronic kidney disease; E78.00 Pure hypercholesterolemia, unspecified; I48.91 Unspecified atrial fibrillation; G47.30 Sleep apnea, unspecified; N18.9 Chronic kidney disease, unspecified; I50.9 Heart failure, unspecified; E10.649 Type 1 diabetes mellitus with hypoglycemia without coma; E10.22 Type 1 diabetes mellitus with diabetic chronic kidney disease; I25.10 Atherosclerotic heart disease of native coronary artery without angina pectoris; I69.322 Dysarthria following cerebral infarction; I48.2 Chronic atrial fibrillation; R26.2 Difficulty in walking, not elsewhere classified; E86.0 Dehydration; E11.22 Type 2 diabetes mellitus with diabetic chronic kidney disease; E11.649 Type 2 diabetes mellitus with hypoglycemia without coma; I69.398 Other sequelae of cerebral infarction; R53.1 Weakness; E11.65 Type 2 diabetes mellitus with hyperglycemia; H54.7 Unspecified visual loss; M19.90 Unspecified osteoarthritis, unspecified site; M06.9 Rheumatoid arthritis, unspecified; M41.9 Scoliosis, unspecified; Z95.1 Presence of aortocoronary bypass graft; Z96.41 Presence of insulin pump (external) (internal); Z86.14 Personal history of Methicillin resistant Staphylococcus aureus infection; Z88.1 Allergy status to other antibiotic agents; Z88.2 Allergy status to sulfonamides; Z79.01 Long term (current) use of anticoagulants; Z79.02 Long term (current) use of antithrombotics/antiplatelets; Z79.4 Long term (current) use of insulin; Z79.899 Other long term (current) drug therapy; Z95.810 Presence of automatic (implantable) cardiac defibrillator; Z95.5 Presence of coronary angioplasty implant and graft
CPT/HCPCS: 36415; 70450; 71045; 80053; 81001; 82962 ×5; 83605; 83735; 83880; 84484; 85025; 85610; 87040 ×2; 87081; 87430; 87804 ×2; 93005; 96361; 96365; 96367; 99285; J1956; J2543; J7042; J7050; 80048; 93010; A9270-GY; J1815; J1815-GY; J3480; J7030; J7060

== ENCOUNTER 2017-05-21 16:49 | Emergency (ER) | payer MEDICARE, OTHER ==
[2017-05-21] MEDS ORDERED: Ondansetron 4 MG/2 ML SDV IV ONE ×2 (17:01→20:02)
[2017-05-21] MEDS ORDERED: Sodium Chloride 0.9% 1,000 ML IV ONE (17:01)
--- NOTE | 2017-05-21 17:27 | EDM.PDOC ---
ED HPI GENERAL MEDICAL PROBLEM - General Chief Complaint: Gastrointestinal Problem Stated Complaint: FROM ACLR. N & V Time Seen by Provider: 05/21/17 17:15 Source of Information: Reports: Patient History Limitations: Reports: No Limitations - History of Present Illness INITIAL COMMENTS - FREE TEXT/NARRATIVE: This 71 yo male patient reports to the ED with nausea/vomiting since this morning. The patient's reports that she noticed that the patient had some right sided facial droop. 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 The patient was hospitalized last week for aspiration pneumonia. The patient was discharged, but not started on any antibiotics. The patient followed-up with Dr. Alaniz yesterday and was started on Levaquin. The patient took 1 dose of Levaquin yesterday, but started vomiting this morning. The patient's reports that his insulin pump may not have been plugged in correctly today, but she changed the position prior to being seen. The patient reports he has noticed increased mucus on his right side over the past 1-2 months. The patient' s reports that she noticed the right sided facial droop this afternoon at about 1430. The patient's reports she believes the patient was normal (no facial droop) at about 1230 today. The patient has some difficulties communicating due to previous strokes, but answers questions appropriately. Onset: Today (Vomiting started this morning, right side facial droop started this afternoon. ) Duration: Constant Location: Reports: Face (right sided facial droop), Abdomen (nausea/vomiting) Quality: Reports: Other Severity: Moderate Improves with: Reports: None Worsens with: Reports: None Associated Symptoms: Reports: Nausea/Vomiting, Other (right sided facial droop) - Related Data Allergies Allergy/AdvReac Type Severity Reaction Status Date / Time sulfamethoxazole Allergy Blisters Verified 05/21/17 17:19 [From Bactrim] trimethoprim [From Bactrim] Allergy Blisters Verified 05/21/17 17:19 Home Meds: Home Meds Calcium Carbonate [Calcium] 1,200 mg PO DAILY 06/21/13 [History] Clopidogrel Bisulfate [Plavix] 75 mg PO DAILY 06/21/13 [History] Folic Acid 3 tab PO DAILY 06/21/13 [History] Gabapentin [Neurontin] 300 mg PO BID 06/21/13 [History] Hydroxychloroquine Sulfate [Plaquenil] 200 mg PO DAILY 06/21/13 [History] Insulin Aspart [NovoLOG] 1 unit SQ ASDIRECTED 06/21/13 [History] Multivitamin [Multivitamins] 1 each PO DAILY 06/21/13 [History] Nitroglycerin [Nitrostat] 1 tab SL ASDIRECTED PRN 06/21/13 [History] [place]-3/DHA/Epa/Fish Oil [Ra Fish Oil 1,000 mg Softgel] 1 cap PO DAILY 06/21/13 [History] atorvaSTATin [Lipitor] 40 mg PO BEDTIME 06/21/13 [History] Carvedilol 12.5 mg PO BID 05/25/14 [History] Amiodarone [Cordarone] 200 mg PO BEDTIME 11/02/15 [History] Furosemide [Lasix] 40 mg PO DAILY PRN 11/02/15 [History] Rivaroxaban [Xarelto] 10 mg PO DAILY 11/02/15 [History] Valsartan/Hydrochlorothiazide [Valsartan-Hctz 320-25 mg Tab] 325 tab PO DAILY [History] Potassium Chloride [Klor-Con M20] 20 meq PO DAILY 11/03/15 [History] Timolol Maleate 1 drop EYEBOTH DAILY 11/03/15 [History] Carvedilol 3.125 mg PO BID 05/14/17 [History] Leflunomide 20 mg PO DAILY 05/14/17 [History] Past Medical History HEENT History: Reports: Impaired Vision Cardiovascular History: Reports: Afib, CAD, Heart Failure Respiratory History: Reports: Sleep Apnea Other Respiratory History: bi-pap machine Musculoskeletal History: Reports: RA Other Musculoskeletal History: scoliosis Neurological History: Reports: TIA, Other (See Below) (chronic aspiration s/p CVA) Other Neuro History: Speech is a little slow re respond. Endocrine/Metabolic History: Reports: Diabetes, Type I, IDDM Other Endocrine/Metabolic History: insulin pump Dermatologic History: Reports: Cellulitis - Infectious Disease History Infectious Disease History: Reports: MRSA Other Infectious Disease History: previous MRSA in foot wound culture and nasel swab. - Past Surgical History Cardiovascular Surgical History: Reports: Carotid Endarterectomy Musculoskeletal Surgical History: Reports: Other (See Below) Social & Family History - Family History Family Medical History: Noncontributory - Tobacco Use Smoking Status *Q: Never Smoker Used Tobacco, but Quit: No Second Hand Smoke Exposure: No - Caffeine Use Caffeine Use: Reports: Coffee, Tea Other Caffeine Use: 2 cups/ day - Alcohol Use Days Per Week of Alcohol Use: 1 Number of Drinks Per Day: 1 Total Drinks Per Week: 1 - Recreational Drug Use Recreational Drug Use: No Drug Use in Last 12 Months: No - Living Situation & Occupation Living situation: Reports: , with Spouse Occupation: Retired ED ROS GENERAL - Review of Systems Review Of Systems: ROS reveals no pertinent complaints other than HPI. ED EXAM, GENERAL - Physical Exam Exam: See Below Exam Limited By: No Limitations General Appearance: Alert, WD/WN, Moderate Distress Eye Exam: Bilateral Eye: EOMI, Normal Inspection, PERRL Ears: Normal External Exam, Normal Canal, Hearing Grossly Normal, Normal TMs Nose: Normal Inspection, Normal Mucosa, No Blood Throat/Mouth: Other (right corner of mouth appears to be drooping ) Head: Atraumatic, Normocephalic Neck: Normal Inspection, Supple, Non-Tender, Full Range of Motion Respiratory/Chest: No Respiratory Distress, Lungs Clear, Normal Breath Sounds, No Accessory Muscle Use, Chest Non-Tender Cardiovascular: Normal Peripheral Pulses, Regular Rate, Rhythm, No Edema, No Gallop, No JVD, No Murmur, No Rub GI/Abdominal: Normal Bowel Sounds, Soft, Non-Tender, No Organomegaly, No Distention, No Abnormal Bruit, No Mass (Male) Exam: Deferred Rectal (Males) Exam: Deferred Back Exam: Other (generalized back tenderness due to chronic arthritis ) Extremities: Normal Inspection, Normal Range of Motion, Non-Tender, Normal Capillary Refill, No Pedal Edema Neurological: Alert, Oriented, CN II-XII Intact, Normal Cognition, Normal Gait, Normal Reflexes, No Motor/Sensory Deficits Psychiatric: Normal Affect, Normal Mood Skin Exam: Warm, Dry, Intact, Normal Color, No Rash Lymphatic: No Adenopathy Course - Vital Signs Last Recorded V/S: Last Vital Signs Temp 37.1 C 05/21/17 16:43 Pulse 95 05/21/17 16:43 Resp 18 05/21/17 16:43 BP 118/51 L 05/21/17 16:43 Pulse Ox 99 05/21/17 16:43 - Orders/Labs/Meds Orders: Active Orders 24 hr Category Date Time Status Chest 1V Frontal [CR] Urgent Exams 05/21/17 18:15 Ordered Head wo Cont [CT] Urgent Exams 05/21/17 17:17 Taken CULTURE BLOOD [BC] Stat Lab 05/21/17 18:19 Ordered CULTURE BLOOD [BC] Stat Lab 05/21/17 18:19 Ordered LACTIC ACID [CHEM] Stat Lab 05/21/17 18:19 Ordered Sodium Chloride 0.9% [Normal Saline] 1,000 ml Med 05/21/17 17:01 Active IV .BOLUS Blood Culture x2 Reflex Set [OM.PC] Stat Oth 05/21/17 18:19 Ordered Medication Orders Sodium Chloride (Normal Saline) 1,000 mls @ 125 mls/hr IV .BOLUS ONE Stop: 05/22/17 01:00 Last Admin: 05/21/17 17:40 Dose: 125 mls/hr Labs: Laboratory Tests 05/21/17 05/21/17 05/21/17 Range/Units 17:05 17:22 17:22 WBC 15.9 H (5.0-10.0) 10^3/uL RBC 4.13 L (4.6-6.2) 10^6/uL Hgb 11.9 L (14.0-18.0) g/dL Hct 39.0 L (40.0-54.0) % MCV 94.4 D (80-100) fL MCH 28.8 (27.0-34.0) pg MCHC 30.5 L (33.0-35.0) g/dL Plt Count 266 (150-450) 10^3/uL Neut % (Auto) 88.0 H (42.2-75.2) % Lymph % (Auto) 3.8 L (20.5-50.1) % [place] % (Auto) 7.7 (2-8) % Eos % (Auto) 0.1 L (1.0-3.0) % Baso % (Auto) 0.4 (0.0-1.0) % Sodium 135 (135-145) mmol/L Potassium 5.6 H D (3.6-5.0) mmol/L Chloride 97 L (101-111) mmol/L Carbon Dioxide 11.0 L D (21.0-31.0) mmol/L Anion Gap 32.6 BUN 40 H (7-18) mg/dL Creatinine 1.9 H (0.6-1.3) mg/dL Est Cr Clr Drug Dosing 36.73 mL/min Estimated GFR (MDRD) 35 BUN/Creatinine Ratio 21.05 Glucose 571 H* (74-105) mg/dL POC Glucose > 500 H* (83-110) mg/dl Calcium 9.2 (8.4-10.2) mg/dl Total Bilirubin 2.0 H (0.2-1.0) mg/dL AST 40 (10-42) IU/L ALT 33 (10-60) IU/L Alkaline Phosphatase 91 (42-121) IU/L Total Protein 6.7 (6.7-8.2) g/dl Albumin 3.8 (3.2-5.5) g/dl Globulin 2.9 Albumin/Globulin Ratio 1.31 Ketones Positive Meds: Medications Generic Name Dose Route Start Last Admin Trade Name Freq PRN Reason Stop Dose Admin Sodium Chloride 1,000 mls @ 125 mls/hr 05/21/17 17:01 05/21/17 17:40 Normal Saline IV 05/22/17 01:00 125 mls/hr .BOLUS ONE Administration Discontinued Medications Generic Name Dose Route Start Last Admin Trade Name Freq PRN Reason Stop Dose Admin Insulin Human Regular 5 unit 05/21/17 18:05 05/21/17 18:19 Humulin R IV 05/21/17 18:06 5 units ONETIME ONE Administration Ondansetron HCl 4 mg 05/21/17 17:01 05/21/17 17:40 Zofran IV 05/21/17 17:02 4 mg ONETIME ONE Administration Departure - Departure Time of Disposition: 18:40 Disposition: Admitted As Inpatient 64 Condition: Fair Clinical Impression: DKA (diabetic ketoacidoses) Qualifiers: Diabetes mellitus type: type 1 Diabetes mellitus complication detail: without coma Qualified Code(s): E10.10 - Type 1 diabetes mellitus with ketoacidosis without coma Leukocytosis Qualifiers: Leukocytosis type: bandemia Qualified Code(s): D72.825 - Bandemia - Discharge Information Care Plan Goals: Discussed the examination, lab, CT and x-ray results with Dr. Vivas during the visit. Dr. Middleton accepted the patient for continued evaluation and further care at [facility]. The patient was given 5 units of IV insulin and IV fluids while in the ED. - My Orders Last 24 Hours: My Active Orders 05/21/17 17:01 Sodium Chloride 0.9% [Normal Saline] 1,000 ml IV .BOLUS 05/21/17 17:17 Head wo Cont [CT] Urgent 05/21/17 18:15 Chest 1V Frontal [CR] Urgent 05/21/17 18:19 CULTURE BLOOD [BC] Stat CULTURE BLOOD [BC] Stat LACTIC ACID [CHEM] Stat Blood Culture x2 Reflex Set [OM.PC] Stat - Assessment/Plan Last 24 Hours: My Active Orders 05/21/17 17:01 Sodium Chloride 0.9% [Normal Saline] 1,000 ml IV .BOLUS 05/21/17 17:17 Head wo Cont [CT] Urgent 05/21/17 18:15 Chest 1V Frontal [CR] Urgent 05/21/17 18:19 CULTURE BLOOD [BC] Stat CULTURE BLOOD [BC] Stat LACTIC ACID [CHEM] Stat Blood Culture x2 Reflex Set [OM.PC] Stat
[2017-05-21 18:00] LABS: ANION GAP 32.6; CHLORIDE,CL 97 mmol/L (101-111); SODIUM,NA 135 mmol/L (135-145)
[2017-05-21] MEDS ORDERED: Insulin Regular, Human 100 Units/ML 3 ML Vial IV ONE ×2 (18:05→19:45)
[2017-05-21 20:09] VITALS: BP 117/67
== END 2017-05-21 20:30 ==
LOC: DL.ED 16:49 → UNDODISIN 18:46 → DL.MS 18:46 → UNDOADMIN 18:46 → DL.ED 20:30
DX: E10.10 Type 1 diabetes mellitus with ketoacidosis without coma (principal); D72.825 Bandemia; I69.328 Other speech and language deficits following cerebral infarction; H54.7 Unspecified visual loss; I48.91 Unspecified atrial fibrillation; I25.10 Atherosclerotic heart disease of native coronary artery without angina pectoris; I50.9 Heart failure, unspecified; G47.30 Sleep apnea, unspecified; M06.9 Rheumatoid arthritis, unspecified; M41.9 Scoliosis, unspecified; R11.2 Nausea with vomiting, unspecified; R29.810 Facial weakness; Z96.41 Presence of insulin pump (external) (internal); Z88.1 Allergy status to other antibiotic agents; Z88.2 Allergy status to sulfonamides; Z79.01 Long term (current) use of anticoagulants; Z79.02 Long term (current) use of antithrombotics/antiplatelets; Z79.4 Long term (current) use of insulin; Z79.899 Other long term (current) drug therapy; Z86.14 Personal history of Methicillin resistant Staphylococcus aureus infection
CPT/HCPCS: 36415; 70450; 71045; 80053; 82009; 82272; 82962; 83605; 84484; 85025; 87040; 96365; 96366; 96375; 96376; 99285; J1815; J2405; J7030; 99284

== ENCOUNTER 2017-06-04 09:18 | Inpatient (IN) | payer MEDICARE, OTHER ==
[2017-06-04] MEDS ORDERED: 50% Dextrose in Water 50 ML Syringe IVPUSH ONE (09:31)
[2017-06-04] MEDS ORDERED: 50% Dextrose in Water 50 ML Syringe ONE (09:33)
[2017-06-04] MEDS: Sodium Chloride 0.9% 10 ML Syringe FLUSH PRN (09:37)
--- NOTE | 2017-06-04 09:37 | EDM.PDOC ---
ED HPI GENERAL MEDICAL PROBLEM - General Chief Complaint: Diabetic Complaint Stated Complaint: FELL / AMBULANCE Time Seen by Provider: 06/04/17 09:27 Source of Information: Reports: Patient, EMS, EMS Notes Reviewed, RN, RN Notes Reviewed, Other (home care nurse call in) History Limitations: Reports: No Limitations - History of Present Illness INITIAL COMMENTS - FREE TEXT/NARRATIVE: Pt to the ER per [facility] with c/o weakness. EMS states the patient was found on the floor by his in the night. He states he did not fall, but leaned against the wall and lowered himself down. Upon arrival EMS states the patients blood sugar is 53, pt speech is slurred and he appears drowsy. Patient denies any pain, recent fever or chills, chest pain or sob, N/V/D. Patient states he was just hospitalized for stents in the heart, how many he is not sure. Onset: Today, Sudden - Related Data Allergies Allergy/AdvReac Type Severity Reaction Status Date / Time sulfamethoxazole Allergy Blisters Verified 05/21/17 17:19 [From Bactrim] trimethoprim [From Bactrim] Allergy Blisters Verified 05/21/17 17:19 Home Meds: Home Meds Calcium Carbonate [Calcium] 1,200 mg PO DAILY 06/21/13 [History] Clopidogrel Bisulfate [Plavix] 75 mg PO DAILY 06/21/13 [History] Folic Acid 2 tab PO DAILY 06/21/13 [History] Gabapentin [Neurontin] 300 mg PO BID 06/21/13 [History] Hydroxychloroquine Sulfate [Plaquenil] 200 mg PO DAILY 06/21/13 [History] Insulin Aspart [NovoLOG] 1 unit SQ ASDIRECTED 06/21/13 [History] Multivitamin [Multivitamins] 1 each PO DAILY 06/21/13 [History] Nitroglycerin [Nitrostat] 1 tab SL ASDIRECTED PRN 06/21/13 [History] [place]-3/DHA/Epa/Fish Oil [Ra Fish Oil 1,000 mg Softgel] 2 cap PO DAILY 06/21/13 [History] atorvaSTATin [Lipitor] 40 mg PO BEDTIME 06/21/13 [History] Amiodarone [Cordarone] 200 mg PO BEDTIME 11/02/15 [History] Furosemide [Lasix] 20 mg PO BID 11/02/15 [History] Rivaroxaban [Xarelto] 10 mg PO DAILY 11/02/15 [History] Potassium Chloride [Klor-Con M20] 40 meq PO DAILY 11/03/15 [History] Timolol Maleate 1 drop EYEBOTH DAILY 11/03/15 [History] Carvedilol 6.25 mg PO BID 05/14/17 [History] Leflunomide 20 mg PO DAILY 05/14/17 [History] Valsartan 160 mg PO DAILY 06/04/17 [History] Vancomycin [Vancomycin 50 MG/ML Soln] 2.5 ml PO QID 06/04/17 [History] Past Medical History HEENT History: Reports: Impaired Vision Cardiovascular History: Reports: Afib, CAD, Heart Failure Respiratory History: Reports: Sleep Apnea Other Respiratory History: bi-pap machine Musculoskeletal History: Reports: RA Other Musculoskeletal History: scoliosis Neurological History: Reports: TIA, Other (See Below) (chronic aspiration s/p CVA) Other Neuro History: Speech is a little slow re respond. Endocrine/Metabolic History: Reports: Diabetes, Type I, IDDM Other Endocrine/Metabolic History: insulin pump Dermatologic History: Reports: Cellulitis - Infectious Disease History Infectious Disease History: Reports: MRSA Other Infectious Disease History: previous MRSA in foot wound culture and nasel swab. - Past Surgical History Cardiovascular Surgical History: Reports: Carotid Endarterectomy Musculoskeletal Surgical History: Reports: Other (See Below) Social & Family History - Family History Family Medical History: Noncontributory - Tobacco Use Smoking Status *Q: Never Smoker Used Tobacco, but Quit: No Second Hand Smoke Exposure: No - Caffeine Use Caffeine Use: Reports: Coffee, Tea Other Caffeine Use: 2 cups/ day - Alcohol Use Days Per Week of Alcohol Use: 1 Number of Drinks Per Day: 1 Total Drinks Per Week: 1 - Recreational Drug Use Recreational Drug Use: No Drug Use in Last 12 Months: No - Living Situation & Occupation Living situation: Reports: , with Spouse Occupation: Retired ED ROS GENERAL - Review of Systems Review Of Systems: ROS reveals no pertinent complaints other than HPI. ED EXAM, GENERAL - Physical Exam Exam: See Below Exam Limited By: No Limitations General Appearance: WD/WN, No Apparent Distress, Lethargic Eye Exam: Bilateral Eye: Normal Inspection Ears: Normal External Exam, Hearing Grossly Normal Nose: Normal Inspection Throat/Mouth: Normal Inspection, Normal Voice, No Airway Compromise Head: Atraumatic, Normocephalic Neck: Normal Inspection, Supple, Non-Tender, Full Range of Motion Respiratory/Chest: No Respiratory Distress, Normal Breath Sounds, No Accessory Muscle Use, Chest Non-Tender, Crackles (bases bilaterally) Cardiovascular: Regular Rate, Rhythm Peripheral Pulses: 1+: Dorsalis Pedis (L), Dorsalis Pedis (R), 2+: Radial (L), Radial (R) GI/Abdominal: Normal Bowel Sounds, Soft, Non-Tender, No Organomegaly, No Distention, No Abnormal Bruit, No Mass (Male) Exam: Deferred Rectal (Males) Exam: Deferred Back Exam: Normal Inspection, Full Range of Motion Extremities: Normal Inspection Neurological: Alert, Slow to Respond, Other (slurred speech) Psychiatric: Normal Affect, Normal Mood Skin Exam: Warm, Dry, Intact, Normal Color, No Rash Lymphatic: No Adenopathy EKG INTERPRETATION EKG Date: 06/04/17 Time: 09:39 Rhythm: Other (Atrial paced) Rate (Beats/Min): 74 P-Wave: Present Comparison: Change From Previous EKG Course - Vital Signs Last Recorded V/S: Last Vital Signs Temp 97.0 F 06/04/17 09:28 Pulse 70 06/04/17 09:28 Resp 18 06/04/17 09:28 BP 133/59 L 06/04/17 09:28 Pulse Ox 92 L 06/04/17 09:28 - Orders/Labs/Meds Orders: Active Orders 24 hr Category Date Time Status EKG Documentation Completion [RC] STAT Care 06/04/17 09:31 Active Peripheral IV Care [RC] . DIRECTED Care 06/04/17 09:32 Active CBC WITH AUTO DIFF [HEME] Stat Lab 06/04/17 09:55 Results MANUAL DIFFERENTIAL QA/NC [HEME] Stat Lab 06/04/17 09:55 Results UA W/MICROSCOPIC [URIN] Stat Lab 06/04/17 10:47 Ordered Sodium Chloride 0.9% [Saline Flush] Med 06/04/17 09:31 Active 10 ml FLUSH ASDIRECTED PRN Peripheral IV Insertion Adult [OM.PC] Stat Oth 06/04/17 09:31 Ordered Medication Orders Sodium Chloride (Saline Flush) 10 ml FLUSH ASDIRECTED PRN PRN Reason: Keep Vein Open Last Admin: 06/04/17 09:37 Dose: 10 ml Labs: Laboratory Tests 06/04/17 06/04/17 06/04/17 Range/Units 09:30 09:54 09:55 WBC 6.6 (5.0-10.0) 10^3/uL RBC 3.47 L (4.6-6.2) 10^6/uL Hgb 10.1 L D (14.0-18.0) g/dL Hct 31.3 L (40.0-54.0) % MCV 90.2 D (80-100) fL MCH 29.1 (27.0-34.0) pg MCHC 32.3 L (33.0-35.0) g/dL Plt Count 364 D (150-450) 10^3/uL Neut % (Auto) 71.1 (42.2-75.2) % Lymph % (Auto) 10.9 L (20.5-50.1) % White % (Auto) 9.4 H (2-8) % Eos % (Auto) 6.0 H (1.0-3.0) % Baso % (Auto) 2.6 H (0.0-1.0) % Add Manual Diff Yes Neutrophils % (Manual) 60 (42-75) % Band Neutrophils % 9 % Lymphocytes % (Manual) 15 L (20-50) % Monocytes % (Manual) 2 (2-8) % Eosinophils % (Manual) 6 H (1-3) % Basophils % (Manual) 4 Metamyelocytes % 2 Myelocytes % 2 Sodium (135-145) mmol/L Potassium (3.6-5.0) mmol/L Chloride (101-111) mmol/L Carbon Dioxide (21.0-31.0) mmol/L Anion Gap BUN (7-18) mg/dL Creatinine (0.6-1.3) mg/dL Est Cr Clr Drug Dosing mL/min Estimated GFR (MDRD) BUN/Creatinine Ratio Glucose (74-105) mg/dL POC Glucose 52 L 135 H (83-110) mg/dl Lactic Acid (0.5-2.2) mmol/L Calcium (8.4-10.2) mg/dl Total Bilirubin (0.2-1.0) mg/dL AST (10-42) IU/L ALT (10-60) IU/L Alkaline Phosphatase (42-121) IU/L Troponin I (0.00-0.02) ng/ml B-Natriuretic Peptide (0-100) pg/ml Total Protein (6.7-8.2) g/dl Albumin (3.2-5.5) g/dl Globulin Albumin/Globulin Ratio Urine Color (YELLOW) Urine Appearance (CLEAR) Urine pH (5.0-9.0) Ur Specific [place] (1.005-1.030) Urine Protein (NEGATIVE) Urine Glucose (UA) (NEGATIVE) Urine Ketones (NEGATIVE) Urine Occult Blood (NEGATIVE) Urine Nitrite (NEGATIVE) Urine Bilirubin (NEGATIVE) Urine Urobilinogen (0.2-1.0) mg/dL Ur Leukocyte Esterase (NEGATIVE) 06/04/17 06/04/17 06/04/17 Range/Units 09:55 09:55 09:55 WBC (5.0-10.0) 10^3/uL RBC (4.6-6.2) 10^6/uL Hgb (14.0-18.0) g/dL Hct (40.0-54.0) % MCV (80-100) fL MCH (27.0-34.0) pg MCHC (33.0-35.0) g/dL Plt Count (150-450) 10^3/uL Neut % (Auto) (42.2-75.2) % Lymph % (Auto) (20.5-50.1) % White % (Auto) (2-8) % Eos % (Auto) (1.0-3.0) % Baso % (Auto) (0.0-1.0) % Add Manual Diff Neutrophils % (Manual) (42-75) % Band Neutrophils % % Lymphocytes % (Manual) (20-50) % Monocytes % (Manual) (2-8) % Eosinophils % (Manual) (1-3) % Basophils % (Manual) Metamyelocytes % Myelocytes % Sodium 136 (135-145) mmol/L Potassium 3.8 D (3.6-5.0) mmol/L Chloride 101 (101-111) mmol/L Carbon Dioxide 30.0 D (21.0-31.0) mmol/L Anion Gap 8.8 BUN 15 D (7-18) mg/dL Creatinine 1.4 H (0.6-1.3) mg/dL Est Cr Clr Drug Dosing 51.58 mL/min Estimated GFR (MDRD) 50 BUN/Creatinine Ratio 10.71 Glucose 144 H (74-105) mg/dL POC Glucose (83-110) mg/dl Lactic Acid 1.0 (0.5-2.2) mmol/L Calcium 8.4 (8.4-10.2) mg/dl Total Bilirubin 0.7 (0.2-1.0) mg/dL AST 28 (10-42) IU/L ALT 22 (10-60) IU/L Alkaline Phosphatase 71 (42-121) IU/L Troponin I 0.05 H* (0.00-0.02) ng/ml B-Natriuretic Peptide 695 H (0-100) pg/ml Total Protein 5.4 L (6.7-8.2) g/dl Albumin 2.6 L (3.2-5.5) g/dl Globulin 2.8 Albumin/Globulin Ratio 0.93 Urine Color (YELLOW) Urine Appearance (CLEAR) Urine pH (5.0-9.0) Ur Specific [place] (1.005-1.030) Urine Protein (NEGATIVE) Urine Glucose (UA) (NEGATIVE) Urine Ketones (NEGATIVE) Urine Occult Blood (NEGATIVE) Urine Nitrite (NEGATIVE) Urine Bilirubin (NEGATIVE) Urine Urobilinogen (0.2-1.0) mg/dL Ur Leukocyte Esterase (NEGATIVE) 06/04/17 Range/Units 10:47 WBC (5.0-10.0) 10^3/uL RBC (4.6-6.2) 10^6/uL Hgb (14.0-18.0) g/dL Hct (40.0-54.0) % MCV (80-100) fL MCH (27.0-34.0) pg MCHC (33.0-35.0) g/dL Plt Count (150-450) 10^3/uL Neut % (Auto) (42.2-75.2) % Lymph % (Auto) (20.5-50.1) % White % (Auto) (2-8) % Eos % (Auto) (1.0-3.0) % Baso % (Auto) (0.0-1.0) % Add Manual Diff Neutrophils % (Manual) (42-75) % Band Neutrophils % % Lymphocytes % (Manual) (20-50) % Monocytes % (Manual) (2-8) % Eosinophils % (Manual) (1-3) % Basophils % (Manual) Metamyelocytes % Myelocytes % Sodium (135-145) mmol/L Potassium (3.6-5.0) mmol/L Chloride (101-111) mmol/L Carbon Dioxide (21.0-31.0) mmol/L Anion Gap BUN (7-18) mg/dL Creatinine (0.6-1.3) mg/dL Est Cr Clr Drug Dosing mL/min Estimated GFR (MDRD) BUN/Creatinine Ratio Glucose (74-105) mg/dL POC Glucose (83-110) mg/dl Lactic Acid (0.5-2.2) mmol/L Calcium (8.4-10.2) mg/dl Total Bilirubin (0.2-1.0) mg/dL AST (10-42) IU/L ALT (10-60) IU/L Alkaline Phosphatase (42-121) IU/L Troponin I (0.00-0.02) ng/ml B-Natriuretic Peptide (0-100) pg/ml Total Protein (6.7-8.2) g/dl Albumin (3.2-5.5) g/dl Globulin Albumin/Globulin Ratio Urine Color Yellow (YELLOW) Urine Appearance Clear (CLEAR) Urine pH 8.0 (5.0-9.0) Ur Specific [place] 1.015 (1.005-1.030) Urine Protein Negative (NEGATIVE) Urine Glucose (UA) Negative (NEGATIVE) Urine Ketones Negative (NEGATIVE) Urine Occult Blood Negative (NEGATIVE) Urine Nitrite Negative (NEGATIVE) Urine Bilirubin Negative (NEGATIVE) Urine Urobilinogen 0.2 (0.2-1.0) mg/dL Ur Leukocyte Esterase Negative (NEGATIVE) Meds: Medications Generic Name Dose Route Start Last Admin Trade Name Freq PRN Reason Stop Dose Admin Sodium Chloride 10 ml 06/04/17 09:31 06/04/17 09:37 Saline Flush FLUSH 10 ml ASDIRECTED PRN Administration Keep Vein Open Discontinued Medications Generic Name Dose Route Start Last Admin Trade Name Freq PRN Reason Stop Dose Admin Dextrose/Water 50 ml 06/04/17 09:31 06/04/17 09:35 Dextrose 50% In Water IVPUSH 06/04/17 09:32 50 ml ONETIME ONE Administration Dextrose/Water Confirm 06/04/17 09:33 Dextrose 50% In Water Administered 06/04/17 09:34 Dose 50 ml .ROUTE .[facility] ONE - Radiology Interpretation Free Text/Narrative:: Chest xray: No acute cardiopulmonary abnormality See rad report Departure - Departure Time of Disposition: 11:18 Disposition: Admitted As Inpatient 64 Condition: Fair Clinical Impression: Hypoglycemia, Weakness - Discharge Information Referrals: Chino Alaniz MD [Primary Care Provider] - Forms: ED Department Discharge - My Orders Last 24 Hours: My Active Orders 06/04/17 09:31 EKG Documentation Completion [RC] STAT Sodium Chloride 0.9% [Saline Flush] 10 ml FLUSH ASDIRECTED PRN Peripheral IV Insertion Adult [OM.PC] Stat 06/04/17 09:32 Peripheral IV Care [RC] . DIRECTED 06/04/17 09:55 CBC WITH AUTO DIFF [HEME] Stat MANUAL DIFFERENTIAL QA/NC [HEME] Stat 06/04/17 10:47 UA W/MICROSCOPIC [URIN] Stat - Assessment/Plan Last 24 Hours: My Active Orders 06/04/17 09:31 EKG Documentation Completion [RC] STAT Sodium Chloride 0.9% [Saline Flush] 10 ml FLUSH ASDIRECTED PRN Peripheral IV Insertion Adult [OM.PC] Stat 06/04/17 09:32 Peripheral IV Care [RC] . DIRECTED 06/04/17 09:55 CBC WITH AUTO DIFF [HEME] Stat MANUAL DIFFERENTIAL QA/NC [HEME] Stat 06/04/17 10:47 UA W/MICROSCOPIC [URIN] Stat
--- NOTE | 2017-06-04 10:33 | CR ---
Clinical history: 71-year-old male chest pain (emergency department). Interpretation: No acute new cardiopulmonary abnormality identified in the interval since May 28 18 exam. Sternotomy wires, cardiac pacemaker (leads intact), external adjuster leader leads and oxygen cannula . Normal cardiac silhouette without cephalization of vascular flow, alveolar edema or dependent pleural fluid accumulation. Small hiatus hernia lower middle mediastinum. No new lung mass, hilar lymphadenopathy or focal lobar pneumonia. No pneumothorax. CONCLUSION: No acute cardiopulmonary abnormality.
[2017-06-04] MEDS ORDERED: Magnesium Hydroxide 400 MG/5 ML Susp 30 ML Cup PO PRN (12:48)
[2017-06-04] MEDS ORDERED: Docusate Sodium 100 MG Cap PO PRN (12:48)
[2017-06-04] MEDS ORDERED: oxyCODONE 5 MG Tab PO PRN (12:48)
[2017-06-04] MEDS ORDERED: Acetaminophen 325 MG Tab PO PRN (12:48)
[2017-06-04] MEDS ORDERED: Ondansetron 4 MG Tab.DIS PO PRN (12:48)
[2017-06-04] MEDS ORDERED: Nitroglycerin 0.4 MG Tab.SL SL PRN (12:51)
[2017-06-04] MEDS ORDERED: 50% Dextrose in Water 50 ML Syringe IVPUSH PRN (12:55)
[2017-06-04] MEDS: Insulin Aspart 100 Units/ML 3 ML Pen SUBCUT SCH ×4 (13:45→21:13)
[2017-06-04] MEDS: Furosemide 40 MG Tab PO SCH (13:45)
[2017-06-04] MEDS: Vancomycin 50 MG/ML Oral Solution Bottle Kit PO SCH ×3 (13:47→21:06)
[2017-06-04] MEDS: Carvedilol 6.25 MG Tab PO SCH (18:18)
--- NOTE | 2017-06-04 20:09 | HP ---
CHIEF COMPLAINT: "I had a fall with severe hypoglycemic reaction." HISTORY OF PRESENTING ILLNESS: Mr. Medhat Bobo is a 71-year-old male with medical history significant for hypertension; type 1 diabetes mellitus, insulin- dependent; hyperlipidemia; currently on insulin pump subcutaneous at home; history of cerebrovascular accident, resulting in slurred speech and mild weakness; coronary artery disease, status post coronary stents placed and coronary artery bypass graft in the past and requiring stent recently for non-ST- elevation myocardial infarction; rheumatoid arthritis; carotid artery disease; presented to the ER having a fall at his home, and this morning, his blood sugars were noted to be on 40 and 50, requiring D50 administration and brought to the Emergency Room. At this time, the patient claims that he has been feeling weak and tired since yesterday. As per his , he is having hard time even to get out of the chair to the bed. He took around 2 hours to get out of the chair to the bed yesterday, and this morning, he appeared to be increasingly weak and tired, so he was brought to the Emergency Room. He denies any chest pains at this time. No shortness of breath. No abdominal pain. No nausea. No vomiting. No diarrhea. No fevers. No chills. No cough. No sputum in the last few days. The patient denied any history of chest pains on exertion, but has mild dyspnea on exertion. No history of orthopnea or paroxysmal nocturnal dyspnea. He denies any hematemesis, hematochezia, or melenic stools. Normal bowel and bladder habits otherwise. REVIEW OF SYSTEMS: A complete review of system including skin, ear, nose, and throat, cardiovascular system, respiratory system, gastrointestinal system, genitourinary system, hematology, oncology, neurology, allergy, immunology, constitutional were all evaluated and were negative except for the above-said notes. PAST MEDICAL HISTORY: Significant for: 1. Hypertension. 2. Type 1 diabetes mellitus. 3. Hyperlipidemia. 4. Coronary artery disease, status post stents placed, status post coronary artery bypass graft. 5. Rheumatoid arthritis. 6. Cerebrovascular accident resulting in slurred speech. 7. Carotid artery disease. PAST SURGICAL HISTORY: Significant for: 1. Coronary artery bypass graft. 2. Carotid stent placement. 3. Carotid endarterectomy. 4. Circumcision. 5. Hernia repair. FAMILY HISTORY: Significant for mother and father . SOCIAL HISTORY: The patient denied any history of smoking tobacco. No history of alcohol intake. ALLERGIES: The patient noted to have allergies to Bactrim, sulfamethoxazole, and trimethoprim. MEDICATIONS: Home medications include: 1. [place]-3 fatty acids. 2. Coreg 6.25 mg twice a day. 3. Lasix 20 mg twice a day. 4. Diovan 160 mg daily. 5. Vancomycin 4 times daily, 125 mg. 6. Neurontin 300 mg daily. 7. Potassium chloride 20 mEq daily. 8. Amiodarone 200 mg daily. 9. Plavix 75 mg daily. 10.Xarelto 10 mg daily. 11.Nitroglycerin 0.4 mg sublingual as needed for chest pain. 12.Lipitor 40 mg daily. 13.Folic acid daily. PHYSICAL EXAMINATION: Vital Signs: Temperature of 97.6, pulse of 70, blood pressure of 123/57, respiratory rate of 18, saturating at 94%. General Appearance: The patient is well oriented to time, place, and person. Follows commands spontaneously. Cardiovascular System: S1 and S2 heard with normal intensity. No gallops. Respiratory System: Clear to auscultation bilaterally. No wheeze. No crepitations. Abdomen: Soft. Bowel sounds positive. Nontender. No rigidity. Extremities: 1 to 2+ pitting edema in bilateral lower extremities. Neurologic: No gross focal neurological deficits. LABORATORY DATA: Reviewed. WBC 6.6, hemoglobin 10.1, hematocrit 31.1, platelet count 364. Sodium 136, potassium 3.8, chloride 101, bicarb 30, BUN 15, creatinine 1.4, glucose 144, lactic acid 1. Troponin 0.05. BNP 695. ASSESSMENT: 1. Type 1 diabetes, uncontrolled. 2. Fall secondary to severe hypoglycemic reaction. 3. Hypertension. 4. Hyperlipidemia. 5. Coronary artery disease. 6. Status post coronary artery bypass graft and stents placed. 7. Rheumatoid arthritis. 8. Generalized weakness and debility. PLAN: 1. Generalized debility and weakness with severe hypoglycemic reaction: The patient will be admitted to the hospital. Check his fingersticks with each meals. The patient is on subcutaneous insulin pump, but secondary to severe hypoglycemic reaction, we will discontinue the pump and have him on Lantus and NovoLog. The patient is encouraged to have evening snack which he fails to do so and results in severe hypoglycemic reaction in the morning. We will closely follow the patient. We will have Physical Therapy and Occupational Therapy evaluate and treat the patient. The patient might need transfer to Swing Bed once he is stabilized in acute setting for continued PT/OT. 2. Hypertension: The patient's blood pressure seems to be in acceptable range. Continue with current antihypertensive medication. 3. Atrial fibrillation: The patient has been on chronic anticoagulation and also on amiodarone; continue the same. 4. Chronic congestive heart failure with diastolic dysfunction: The patient is noted to be on Lasix 20 twice a day. We will continue the same. One might consider increasing the dose of Lasix to 40 mg as he noted to have swelling to the lower extremities. 5. Rheumatoid arthritis: The patient is complaining of arthritic pain. We will continue with Tylenol for now. He does not have any joint swelling or joint effusion or tenderness. 6. Deep venous thrombosis prophylaxis: The patient is currently on Xarelto; continue the same. 7. Code status: The patient wants to be a full code. Discussed with family members at bedside. Discussed with Ginette, ER physician, regarding the plan of care. Reviewed the labs and medications. Reviewed the old charts. [facility] /[id number]
[2017-06-04] MEDS: atorvaSTATin 20 MG Tab PO SCH (21:03)
[2017-06-04] MEDS: Gabapentin 300 MG Cap PO SCH (21:03)
[2017-06-04] MEDS: Amiodarone 200 MG Tab PO SCH (21:03)
[2017-06-04] MEDS: Insulin Detemir 100 Units/ML 3 ML Pen SUBCUT SCH (21:12)
[2017-06-05] MEDS: Carvedilol 6.25 MG Tab PO SCH ×2 (08:58→18:12)
[2017-06-05] MEDS: Furosemide 40 MG Tab PO SCH ×2 (08:59→14:47)
[2017-06-05] MEDS: Potassium Chloride 10 MEQ Tab.ER PO SCH (08:59)
[2017-06-05] MEDS ORDERED: TIMOLOL MALEATE 0.5% EYEBOTH SCH (09:00)
[2017-06-05] MEDS: Hydroxychloroquine 200 MG Tab PO SCH (09:00)
[2017-06-05] MEDS: Gabapentin 300 MG Cap PO SCH ×2 (09:00→20:17)
[2017-06-05] MEDS: FISH OIL GUMMIES PO SCH (09:01)
[2017-06-05] MEDS: Folic Acid 1 MG Tab PO SCH (09:01)
[2017-06-05] MEDS: Rivaroxaban 10 MG Tab PO SCH (09:01)
[2017-06-05] MEDS: LEFLUNOMIDE 20 MG PO SCH (09:02)
[2017-06-05] MEDS: Clopidogrel 75 MG Tab PO SCH (09:02)
[2017-06-05] MEDS: Insulin Aspart 100 Units/ML 3 ML Pen SUBCUT SCH ×7 (09:03→21:12)
[2017-06-05] MEDS: Vancomycin 50 MG/ML Oral Solution Bottle Kit PO SCH ×4 (09:06→20:19)
[2017-06-05] MEDS: Sodium Chloride 0.9% 10 ML Syringe FLUSH PRN (09:07)
--- NOTE | 2017-06-05 13:37 | PN ---
DATE: 06/05/2017 SUBJECTIVE: Mr. Miguel Angel Meléndez is a 71-year-old male with medical history significant for hypertension; hyperlipidemia; type 1 diabetes mellitus, insulin dependent; history of cerebrovascular accident resulting in slurred speech and mild weakness; coronary artery disease, status post coronary artery bypass graft and stent placement, recent diagnosis of [id number] myocardial infarction, admitted to the hospital with complaints of severe hypoglycemic reaction resulting in increased weakness and tiredness. For the last 24 hours, the patient's blood sugar seems to be in acceptable range. Continues to have generalized debility with increased weakness and tiredness. Denies any chest pain. No shortness of breath. No abdominal pain. No nausea. No vomiting. No diarrhea. The patient was recently diagnosed with C. difficile. REVIEW OF SYSTEMS: Cardiovascular, respiratory, gastrointestinal, neurology, constitutional were all evaluated. PHYSICAL EXAMINATION: Vital Signs: Temperature of 97.4, pulse of 74, blood pressure of 116/56, respiratory rate of 20, saturating at 96% on room air. General Appearance: The patient is well oriented to time, place, and person. Follows commands spontaneously. Cardiovascular System: S1, S2 heard with normal intensity. No gallops. Respiratory System: Clear to auscultation bilaterally. No wheeze. No crepitations. Abdomen: Soft. Bowel sounds positive. Nontender. No rigidity. No guarding. No rebound tenderness. Extremities: Mild edema, lower extremities. MEDICATIONS: Reviewed, continue the same. Continue with: 1. Amiodarone 200 mg at bedtime. 2. Lipitor 40 mg at bedtime. 3. Coreg 6.25 mg twice a day. 4. Plavix 75 mg daily. 5. Folic acid 1 mg daily. 6. Lasix 40 mg twice a day. 7. Neurontin 300 mg twice a day. 8. Plaquenil 200 mg daily. 9. NovoLog supplemental scale and 5 units with each meals. 10.Levemir 20 units at bedtime. 11.Nitroglycerin 0.4 mg as needed for chest pain. 12.Potassium chloride 40 mEq daily. 13.Xarelto 10 mg daily. 14.Diovan 160 mg daily. 15.Vancomycin 125 mg oral 4 times a day. LABORATORY DATA: Reviewed. WBC 5.6, hemoglobin 10.1, hematocrit 31.4, platelet count 377. Sodium 135, potassium 3.8, chloride 97, bicarb 32, BUN 17, creatinine 1.4, glucose 114. ASSESSMENT: 1. Type 1 diabetes mellitus, uncontrolled. 2. Generalized debility. 3. Hypertension. 4. Hyperlipidemia. 5. Coronary artery disease, status post coronary artery stents and bypass graft. 6. Clostridium difficile diarrhea. 7. History of methicillin-resistant Staphylococcus aureus in the sputum. 8. Rheumatoid arthritis. PLAN: 1. Type 1 diabetes mellitus. The patient was admitted with severe hypoglycemic reaction. We will switch him to Lantus and Levemir and NovoLog. The patient usually has a subcutaneous insulin pump at home, unsure if the patient is able to use it appropriately, so we discontinued the subcutaneous insulin pump and have him on Levemir and NovoLog shots. We will have him on supplemental scale. Try to avoid any hypoglycemic reaction, have him on hypoglycemic protocol. 2. Generalized debility. We will have Physical Therapy and Occupational Therapy evaluate and treat the patient. I do not think the patient is safe enough to be discharged home as he is at increased risk for falls. 3. Rheumatoid arthritis. Continue with Plaquenil. 4. Hypertension. The patient's blood pressure seems to be in acceptable range. Continue with current antihypertensive medication with Diovan and Coreg. 5. Coronary artery disease. The patient denies any ongoing chest pains. Continue with statin and Plavix. 6. Chronic anticoagulation. The patient has been on Xarelto, continue the same. 7. We will have Physical Therapy and Occupational Therapy evaluate and treat the patient. [facility] /[id number]
[2017-06-05] MEDS: atorvaSTATin 20 MG Tab PO SCH (20:16)
[2017-06-05] MEDS: Amiodarone 200 MG Tab PO SCH (20:16)
[2017-06-05] MEDS: Insulin Detemir 100 Units/ML 3 ML Pen SUBCUT SCH (21:12)
[2017-06-06] MEDS: Insulin Aspart 100 Units/ML 3 ML Pen SUBCUT SCH ×6 (08:30→21:32)
[2017-06-06] MEDS: LEFLUNOMIDE 20 MG PO SCH (08:55)
[2017-06-06] MEDS: FISH OIL GUMMIES PO SCH (08:55)
[2017-06-06] MEDS: Potassium Chloride 10 MEQ Tab.ER PO SCH (08:56)
[2017-06-06] MEDS: Carvedilol 6.25 MG Tab PO SCH ×2 (08:57→18:12)
[2017-06-06] MEDS: Gabapentin 300 MG Cap PO SCH ×2 (08:57→21:14)
[2017-06-06] MEDS: Hydroxychloroquine 200 MG Tab PO SCH (08:57)
[2017-06-06] MEDS: Rivaroxaban 10 MG Tab PO SCH (08:57)
[2017-06-06] MEDS: Furosemide 40 MG Tab PO SCH ×2 (08:57→15:14)
[2017-06-06] MEDS: Clopidogrel 75 MG Tab PO SCH (08:58)
[2017-06-06] MEDS: Folic Acid 1 MG Tab PO SCH (08:58)
[2017-06-06] MEDS: Vancomycin 50 MG/ML Oral Solution Bottle Kit PO SCH ×4 (08:59→21:16)
--- NOTE | 2017-06-06 12:11 | PN ---
DATE: 06/06/2017 SUBJECTIVE: Miguel Angel Meléndez is a 71-year-old male with a medical history significant for hypertension; hyperlipidemia; type 1 diabetes mellitus, insulin- dependent; cerebrovascular accident in the past, resulting in slurred speech; coronary artery disease, status post stents placed and coronary artery bypass graft in the past, admitted to the hospital with severe hypoglycemic reaction. For the last 24 hours, the patient continued to have low blood sugars. He had a blood sugar of 40 this morning. He denies any chest pain. No shortness of breath. No abdominal pain. No nausea. No vomiting. No diarrhea. REVIEW OF SYSTEMS: Cardiovascular, respiratory, gastrointestinal, neurology, constitutional were all evaluated. PHYSICAL EXAMINATION: Vital Signs: Temperature of 98.2, pulse of 74, blood pressure 160/69, respiratory rate of 20, and saturating at 93% on 2 L of oxygen. General Appearance: The patient is well oriented to time, place, and person. Follows commands spontaneously. Cardiovascular System: S1 and S2 heard with normal intensity. No gallops. Respiratory System: Clear to auscultation bilaterally. No wheeze. No crepitations. Abdomen: Soft. Bowel sounds positive. Nontender. No rigidity. No guarding. No rebound tenderness. Extremities: Mild edema in the bilateral lower extremities. Neurology: No gross focal neurological deficit except for slurred speech. MEDICATIONS: Reviewed. Continue the same. We will decrease the NovoLog to 5 units twice a day. Hold the NovoLog p.m. dose and also hold any supplemental scale insulin at night. The patient is encouraged to have evening snack. LABORATORY DATA: Lab reviewed. Sodium 136, potassium 3.4, chloride 98, bicarb 31, BUN 16, creatinine 1.2, glucose 55. ASSESSMENT: 1. Type 1 diabetes mellitus, uncontrolled with hypoglycemic episodes. 2. Hypertension. 3. Hyperlipidemia. 4. Generalized debility. 5. Coronary artery disease, status post bypass graft and stents placed. 6. Clostridium difficile diarrhea. 7. History of methicillin-resistant Staphylococcus aureus in the sputum. 8. Rheumatoid arthritis. PLAN: 1. Type 1 diabetes mellitus. The patient continues to have low blood sugars. We will decrease the NovoLog to twice a day, only in the morning and at noon. We will hold off the p.m. dose, and we will not give him any supplemental scale insulin at night. The patient is encouraged to have evening snack. We will continue with current dose of Levemir, and we will closely follow. Avoid any hypoglycemic episodes. Have him on hypoglycemic protocol. 2. Generalized debility. We will have Physical Therapy and Occupational Therapy evaluate and treat the patient. 3. Hypertension. The patient's blood pressure seems to be elevated. We will continue with current antihypertensive medication. We will further titrate up the medication to optimize his blood pressure. 4. Chronic congestive heart failure, remains stable. Continue with Lasix for now. 5. Chronic anticoagulation. The patient is currently on Xarelto. Continue the same. [facility] /[id number]
[2017-06-06] MEDS: Amiodarone 200 MG Tab PO SCH (21:13)
[2017-06-06] MEDS: atorvaSTATin 20 MG Tab PO SCH (21:14)
[2017-06-06] MEDS: TIMOLOL MALEATE 0.5% EYEBOTH SCH (21:18)
[2017-06-06] MEDS: Sodium Chloride 0.9% 10 ML Syringe FLUSH PRN (21:31)
[2017-06-06] MEDS: Insulin Detemir 100 Units/ML 3 ML Pen SUBCUT SCH (21:33)
[2017-06-07] MEDS ORDERED: Carvedilol 6.25 MG Tab PO ONE (10:59)
[2017-06-07] MEDS ORDERED: Gabapentin 300 MG Cap PO ONE (10:59)
[2017-06-07] MEDS ORDERED: Rivaroxaban 10 MG Tab PO ONE (10:59)
[2017-06-07] MEDS ORDERED: Clopidogrel 75 MG Tab PO ONE (10:59)
[2017-06-07] MEDS ORDERED: Potassium Chloride 10 MEQ Tab.ER PO ONE (10:59)
[2017-06-07] MEDS ORDERED: Hydroxychloroquine 200 MG Tab PO ONE (10:59)
[2017-06-07] MEDS ORDERED: Folic Acid 1 MG Tab PO ONE (10:59)
[2017-06-07] MEDS ORDERED: Furosemide 40 MG Tab PO ONE (10:59)
[2017-06-07] MEDS: Carvedilol 6.25 MG Tab PO SCH ×2 (11:11→17:25)
[2017-06-07] MEDS: Potassium Chloride 10 MEQ Tab.ER PO SCH (11:11)
[2017-06-07] MEDS: Folic Acid 1 MG Tab PO SCH (11:13)
[2017-06-07] MEDS: Insulin Aspart 100 Units/ML 3 ML Pen SUBCUT SCH ×5 (11:14→17:20)
[2017-06-07] MEDS: Gabapentin 300 MG Cap PO SCH ×2 (11:14→21:13)
[2017-06-07] MEDS: Clopidogrel 75 MG Tab PO SCH (12:08)
[2017-06-07] MEDS: LEFLUNOMIDE 20 MG PO SCH (12:08)
[2017-06-07] MEDS: FISH OIL GUMMIES PO SCH (12:08)
[2017-06-07] MEDS: Hydroxychloroquine 200 MG Tab PO SCH (12:08)
[2017-06-07] MEDS: Vancomycin 50 MG/ML Oral Solution Bottle Kit PO SCH ×4 (12:08→21:14)
[2017-06-07] MEDS: Rivaroxaban 10 MG Tab PO SCH (12:09)
[2017-06-07] MEDS: Furosemide 40 MG Tab PO SCH (12:15)
--- NOTE | 2017-06-07 12:19 | PN ---
DATE: 06/07/2017 SUBJECTIVE: Mr. Miguel Angel Bobo is a 71-year-old male with medical history significant for hypertension; hyperlipidemia; type 1 diabetes mellitus, insulin dependent; cerebrovascular accident; coronary artery disease, status post stents placed; and coronary artery bypass graft in the past, admitted with severe hypoglycemic reaction. For the last 24 hours, the patient denies any complaints of chest pain. No shortness of breath. No abdominal pain. No nausea. No vomiting. No diarrhea. REVIEW OF SYSTEMS: Cardiovascular, respiratory, gastrointestinal, neurology, constitutional were all evaluated. PHYSICAL EXAMINATION: Vital Signs: Temperature of 97.5, pulse of 86, blood pressure of 98/58, respiratory rate of 20, saturating at 92%. General Appearance: The patient is well oriented to time, place, and person. Follows commands spontaneously. Cardiovascular System: S1, S2 heard with normal intensity. No gallops. Respiratory System: Clear to auscultation bilaterally. No wheeze. No crepitations. Abdomen: Soft. Bowel sounds positive. Nontender. No rigidity. Extremities: No edema, bilateral lower extremities. Neurology: No gross focal neurological deficits. MEDICATIONS: Reviewed. Continue with, 1. Tylenol 650 every 4 hours as needed for pain. 2. Amiodarone 200 mg at bedtime. 3. Lipitor 40 mg at bedtime. 4. Coreg 12.5 mg twice a day. 5. Plavix 75 mg daily. 6. Docusate sodium 100 mg twice a day as needed for constipation. 7. Folic acid 1 mg daily. 8. Lasix 40 mg daily. 9. Neurontin 300 mg twice a day. 10.Plaquenil 200 mg daily. 11.NovoLog supplemental scale as needed. NovoLog 5 units twice a day, for morning and at lunch. No NovoLog to be given at dinner. 12.Levemir 25 units at bedtime. 13.Milk of magnesia 30 mL q.12 hours as needed for constipation. 14.Nitrostat 0.4 mg sublingual as needed for chest pain. 15.Potassium chloride 40 mEq daily. 16.Xarelto 10 mg daily. 17.Diovan 160 mg daily. LABORATORY DATA: Sodium 135, potassium 3.8, chloride 95, bicarb 33, BUN 17, creatinine 1.3, glucose 140. ASSESSMENT: 1. Type 1 diabetes mellitus, improving. 2. Hypotension. 3. Hyperlipidemia. 4. Generalized debility. 5. Coronary artery disease, status post coronary artery bypass graft and stents placed in the past. 6. Clostridium difficile diarrhea. 7. History of amaurosis in the sputum. 8. Rheumatoid arthritis. PLAN: 1. Type 1 diabetes mellitus. The patient was admitted with severe hypoglycemic reaction. We titrated the medication. He usually takes subcutaneous insulin pump at home, but he is not able to manage the pump very well. He would need further diabetic education as an outpatient, but currently he is on Levemir and NovoLog. He tends to have hypoglycemic episodes in the morning, so we discontinued his night dose of NovoLog and also no supplemental scale to be given at night to avoid any morning hypoglycemic reaction. The patient is advised to have an evening snack. We will continue with current treatment plan. 2. Generalized debility. Continue with physical therapy and occupational therapy. 3. Hypertension. The patient tends to have low blood pressure. We had to hold his Coreg today. We will change the Lasix to once a day dosing. Continue with Diovan for now. Recheck a basic metabolic panel in the a.m. and we will closely follow. 4. Acute on chronic renal failure. This seems to be improving. The patient's chronic kidney disease remains stable. Try to avoid nephrotoxic agents. Dose adjust medications for renal function. 5. History of rheumatoid arthritis. Continue with Plaquenil for now. 6. Chronic anticoagulation, he is currently on Xarelto, continue the same. 7. Discharge plans, ongoing. [facility] /[id number]
[2017-06-07] MEDS: Sodium Chloride 0.9% 10 ML Syringe FLUSH PRN (18:44)
[2017-06-07] MEDS: atorvaSTATin 20 MG Tab PO SCH (21:09)
[2017-06-07] MEDS: Amiodarone 200 MG Tab PO SCH (21:10)
[2017-06-07] MEDS: Insulin Detemir 100 Units/ML 3 ML Pen SUBCUT SCH (21:10)
[2017-06-07] MEDS ORDERED: Insulin Aspart 100 Units/ML 3 ML Pen SUBCUT STA (21:11)
[2017-06-07] MEDS: TIMOLOL MALEATE 0.5% EYEBOTH SCH (21:13)
[2017-06-08] MEDS ORDERED: Insulin Aspart 100 Units/ML 3 ML Pen SUBCUT ONE (00:25)
--- NOTE | 2017-06-08 07:45 | EKG ---
06/04/2017- BRANDI GILLIS - FINDINGS: Twelve-lead EKG shows atrial paced complex with heart rate of 74. No other interpretation could be made secondary to paced complex. [facility] /[id number]
[2017-06-08] MEDS: FISH OIL GUMMIES PO SCH (09:07)
[2017-06-08] MEDS: LEFLUNOMIDE 20 MG PO SCH (09:09)
[2017-06-08] MEDS: Potassium Chloride 10 MEQ Tab.ER PO SCH (09:09)
[2017-06-08] MEDS: Insulin Aspart 100 Units/ML 3 ML Pen SUBCUT SCH ×5 (09:11→17:17)
[2017-06-08] MEDS: Vancomycin 50 MG/ML Oral Solution Bottle Kit PO SCH ×4 (09:15→21:14)
[2017-06-08] MEDS: Clopidogrel 75 MG Tab PO SCH (09:16)
[2017-06-08] MEDS: Rivaroxaban 10 MG Tab PO SCH (09:17)
[2017-06-08] MEDS: Gabapentin 300 MG Cap PO SCH ×2 (09:17→21:14)
[2017-06-08] MEDS: Hydroxychloroquine 200 MG Tab PO SCH (09:18)
[2017-06-08] MEDS: Folic Acid 1 MG Tab PO SCH (09:18)
[2017-06-08] MEDS: Furosemide 40 MG Tab PO SCH (09:19)
[2017-06-08] MEDS: Carvedilol 6.25 MG Tab PO SCH ×2 (09:20→17:23)
[2017-06-08] MEDS: Sodium Chloride 0.9% 10 ML Syringe FLUSH PRN (09:22)
--- NOTE | 2017-06-08 09:25 | PCM.PN ---
- General Info Date of Service: 06/08/17 Subjective Update: Patient admitted for hypoglycemia. No complaint today. PM levemir and overnight sliding scale held because of morning hypoglycemia. No complaint today. Functional Status: Reports: Pain Controlled - Review of Systems General: Reports: No Symptoms HEENT: Reports: No Symptoms Pulmonary: Reports: No Symptoms Cardiovascular: Reports: No Symptoms Gastrointestinal: Reports: No Symptoms Genitourinary: Reports: No Symptoms Musculoskeletal: Reports: No Symptoms Skin: Reports: No Symptoms Neurological: Reports: No Symptoms Psychiatric: Reports: No Symptoms - Patient Data Vitals - Most Recent: Last Vital Signs Temp 97.5 F 06/08/17 07:34 Pulse 80 06/08/17 09:20 Resp 20 06/08/17 07:34 BP 105/69 06/08/17 09:20 Pulse Ox 96 06/08/17 07:34 Weight - Most Recent: 169 lb 6 oz I&O - Last 24 Hours: Intake & Output 06/07/17 06/08/17 06/08/17 22:59 06:59 14:59 Intake Total 650 325 Output Total 1150 200 Balance -500 125 Lab Results Last 24 Hours: Laboratory Results - last 24 hr 06/07/17 06/07/17 06/07/17 Range/Units 07:56 11:14 17:01 Sodium (135-145) mmol/L Potassium (3.6-5.0) mmol/L Chloride (101-111) mmol/L Carbon Dioxide (21.0-31.0) mmol/L Anion Gap BUN (7-18) mg/dL Creatinine (0.6-1.3) mg/dL Est Cr Clr Drug Dosing mL/min Estimated GFR (MDRD) Glucose (74-105) mg/dL POC Glucose 91 263 H 344 H (83-110) mg/dl Calcium (8.4-10.2) mg/dl Phosphorus (2.5-4.6) mg/dL Magnesium (1.8-2.5) mg/dL 06/07/17 06/08/17 06/08/17 Range/Units 21:03 00:22 05:58 Sodium 137 (135-145) mmol/L Potassium 3.5 L (3.6-5.0) mmol/L Chloride 99 L (101-111) mmol/L Carbon Dioxide 33.0 H (21.0-31.0) mmol/L Anion Gap 8.5 BUN 20 H (7-18) mg/dL Creatinine 1.3 (0.6-1.3) mg/dL Est Cr Clr Drug Dosing 54.99 mL/min Estimated GFR (MDRD) 54 Glucose 232 H (74-105) mg/dL POC Glucose > 500 H* 494 H* (83-110) mg/dl Calcium 8.4 (8.4-10.2) mg/dl Phosphorus 2.8 (2.5-4.6) mg/dL Magnesium 2.1 (1.8-2.5) mg/dL 06/08/17 Range/Units 07:35 Sodium (135-145) mmol/L Potassium (3.6-5.0) mmol/L Chloride (101-111) mmol/L Carbon Dioxide (21.0-31.0) mmol/L Anion Gap BUN (7-18) mg/dL Creatinine (0.6-1.3) mg/dL Est Cr Clr Drug Dosing mL/min Estimated GFR (MDRD) Glucose (74-105) mg/dL POC Glucose 158 H (83-110) mg/dl Calcium (8.4-10.2) mg/dl Phosphorus (2.5-4.6) mg/dL Magnesium (1.8-2.5) mg/dL Med Orders - Current: Current Medications Acetaminophen (Tylenol) 650 mg PO Q4H PRN PRN Reason: Pain (Mild 1-3)/fever Amiodarone HCl (Cordarone) 200 mg PO BEDTIME [facility] Last Admin: 06/07/17 21:10 Dose: 200 mg Atorvastatin Calcium (Lipitor) 40 mg PO BEDTIME [facility] Last Admin: 06/07/17 21:09 Dose: 40 mg Carvedilol (Coreg) 12.5 mg PO BIDMEALS [facility] Last Admin: 06/08/17 09:20 Dose: 12.5 mg Clopidogrel Bisulfate (Plavix) 75 mg PO DAILY [facility] Last Admin: 06/08/17 09:16 Dose: 75 mg Dextrose/Water (Dextrose 50% In Water) 50 ml IVPUSH ONETIME PRN PRN Reason: Hypoglycemia Docusate Sodium (Colace) 100 mg PO BID PRN PRN Reason: Constipation Folic Acid (Folic Acid) 1 mg PO DAILY [facility] Last Admin: 06/08/17 09:18 Dose: 1 mg Furosemide (Lasix) 40 mg PO DAILY [facility] Last Admin: 06/08/17 09:19 Dose: 40 mg Gabapentin (Neurontin) 300 mg PO BID [facility] Last Admin: 06/08/17 09:17 Dose: 300 mg Hydroxychloroquine Sulfate (Plaquenil) 200 mg PO DAILY [facility] Last Admin: 06/08/17 09:18 Dose: 200 mg Insulin Aspart (Novolog) 0 unit SUBCUT TIDAC [facility]; Protocol Last Admin: 06/08/17 09:11 Dose: 1 units Insulin Aspart (Novolog) 5 unit SUBCUT BID@0800,1200 [facility] Last Admin: 06/08/17 09:12 Dose: 5 units Insulin Detemir (Levemir) 25 unit SUBCUT BEDTIME [facility] Last Admin: 06/07/17 21:10 Dose: 25 units Magnesium Hydroxide (Milk Of Magnesia) 30 ml PO Q12H PRN PRN Reason: Constipation Nitroglycerin (Nitrostat) 0.4 mg SL Q5M PRN PRN Reason: Chest Pain Ondansetron HCl (Zofran Odt) 4 mg PO Q4H PRN PRN Reason: nausea, able to take PO Oxycodone HCl (Oxycodone) 5 mg PO Q4H PRN PRN Reason: Pain (moderate 4-6) Leflunomide 20 Mg (Pt's Own Med) 0 each PO DAILY [facility] Last Admin: 06/08/17 09:09 Dose: 1 each Fish Oil Gummies (Pt's Own Med) 2 each PO DAILY [facility] Last Admin: 06/08/17 09:07 Dose: 2 each Timolol Maleate 0.5% Gfs Pt's Own Med* * 1 each EYEBOTH BEDTIME [facility] Last Admin: 06/07/17 21:13 Dose: 1 each Potassium Chloride (Klor-Con 10) 40 meq PO DAILY@0800 [facility] Last Admin: 06/08/17 09:09 Dose: 40 meq Rivaroxaban (Xarelto) 10 mg PO DAILY [facility] Last Admin: 06/08/17 09:17 Dose: 10 mg Sodium Chloride (Saline Flush) 10 ml FLUSH ASDIRECTED PRN PRN Reason: Keep Vein Open Last Admin: 06/08/17 09:22 Dose: 10 ml Valsartan (Diovan) 160 mg PO DAILY [facility] Last Admin: 06/08/17 09:19 Dose: 160 mg Vancomycin HCl (Vancomycin 50 Mg/Ml Soln) 125 mg PO QID [facility] Last Admin: 06/08/17 09:15 Dose: 125 mg Discontinued Medications Carvedilol (Coreg) 6.25 mg PO BIDMEALS [facility] Last Admin: 06/06/17 08:57 Dose: 6.25 mg Dextrose/Water (Dextrose 50% In Water) 50 ml IVPUSH ONETIME ONE Stop: 06/04/17 09:32 Last Admin: 06/04/17 09:35 Dose: 50 ml Dextrose/Water (Dextrose 50% In Water) Confirm Administered Dose 50 ml .ROUTE .STK-MED ONE Stop: 06/04/17 09:34 Last Admin: 06/04/17 13:00 Dose: Not Given Furosemide (Lasix) 40 mg PO BIDDIURETIC [facility] Last Admin: 06/07/17 12:15 Dose: Not Given Insulin Aspart (Novolog) 5 unit SUBCUT TIDM [facility] Last Admin: 06/06/17 12:45 Dose: Not Given Insulin Aspart (Novolog) 0 unit SUBCUT QID [facility]; Protocol Last Admin: 06/07/17 12:29 Dose: 3 unit Insulin Aspart (Novolog) 5 unit SUBCUT BID@0800,1200 [facility] Last Admin: 06/07/17 12:29 Dose: 5 units Insulin Aspart (Novolog) 5 unit SUBCUT NOW STA Stop: 06/07/17 21:12 Last Admin: 06/07/17 21:27 Dose: 5 units Insulin Aspart (Novolog) 0 unit SUBCUT ONETIME ONE Stop: 06/08/17 00:26 Last Admin: 06/08/17 00:30 Dose: 3 units Insulin Detemir (Levemir) 20 unit SUBCUT BEDTIME [facility] Last Admin: 06/06/17 21:33 Dose: 20 units Timolol Maleate 0.5% Gfs Pt's Own Med* * 1 each EYEBOTH DAILY [facility] Last Admin: 06/05/17 09:03 Dose: 1 each - Exam General: Alert, Oriented HEENT: Pupils Equal, Pupils Reactive, EOMI, Mucous Membr. Moist/[place] Neck: Supple Lungs: Clear to Auscultation, Normal Respiratory Effort Cardiovascular: Regular Rate, Regular Rhythm GI/Abdominal Exam: Normal Bowel Sounds, Soft, Non-Tender, No Organomegaly, No Distention, No Abnormal Bruit, No Mass, Pelvis Stable (Male) Exam: No Hernia, Normal Inspection, Normal Prostate, Circumcised Back Exam: Normal Inspection, Full Range of Motion Extremities: Normal Inspection, Normal Range of Motion, Non-Tender, No Pedal Edema, Normal Capillary Refill Skin: Warm, Dry, Intact Wound/Incisions: Healing Well Neurological: No New Focal Deficit Psy/Mental Status: Alert, Normal Affect, Normal Mood - Problem List & Annotations (1) Hypoglycemia SNOMED Code(s): 764209167 Code(s): E16.2 - HYPOGLYCEMIA, UNSPECIFIED Status: Acute Current Visit: Yes (2) Aspiration pneumonia SNOMED Code(s): 947116744 Code(s): J69.0 - PNEUMONITIS DUE TO INHALATION OF FOOD AND VOMIT Status: Acute Current Visit: No Qualifiers: Aspiration pneumonia type: unspecified Laterality: left Lung location: lower lobe of lung Qualified Code(s): J69.0 - Pneumonitis due to inhalation of food and vomit - Problem List Review Problem List Initiated/Reviewed/Updated: Yes - Plan Plan:: DM-I on insulin pump. Treatment complicated by recurrent hypoglycemia due to improper due of insulin pump currently on insulin levemir and sliding scale will continue for now monitor FSG dov when blood glucose stabilize will educate patient on use of insulin pump before discharge.
[2017-06-08] MEDS: Amiodarone 200 MG Tab PO SCH (21:13)
[2017-06-08] MEDS: Insulin Detemir 100 Units/ML 3 ML Pen SUBCUT SCH (21:13)
[2017-06-08] MEDS: atorvaSTATin 20 MG Tab PO SCH (21:14)
[2017-06-08] MEDS: TIMOLOL MALEATE 0.5% EYEBOTH SCH (21:15)
[2017-06-09] MEDS ORDERED: 50% Dextrose in Water 50 ML Syringe IVPUSH PRN (08:20)
--- NOTE | 2017-06-09 08:21 | PCM.PN ---
- General Info Date of Service: 06/09/17 Subjective Update: Patient admitted for hypoglycemia. No complaint today. Had episode of hypoglycemia this AM. Received 25 unit of levemir lastnight. I decreased his levemir to 10 unit at night No other complaint. Functional Status: Reports: Pain Controlled - Review of Systems General: Reports: No Symptoms HEENT: Reports: No Symptoms Pulmonary: Reports: No Symptoms Cardiovascular: Reports: No Symptoms Gastrointestinal: Reports: No Symptoms Genitourinary: Reports: No Symptoms Musculoskeletal: Reports: No Symptoms Skin: Reports: No Symptoms Neurological: Reports: No Symptoms Psychiatric: Reports: No Symptoms - Patient Data Vitals - Most Recent: Last Vital Signs Temp 98.1 F 06/09/17 08:00 Pulse 73 06/09/17 08:00 Resp 18 06/09/17 08:00 BP 147/63 H 06/09/17 08:00 Pulse Ox 97 06/09/17 08:00 Weight - Most Recent: 171 lb I&O - Last 24 Hours: Intake & Output 06/08/17 06/09/17 06/09/17 22:59 06:59 14:59 Intake Total 600 200 Output Total 450 150 Balance 150 50 Lab Results Last 24 Hours: Laboratory Results - last 24 hr 06/08/17 06/08/17 06/08/17 Range/Units 10:51 17:02 20:59 Sodium (135-145) mmol/L Potassium (3.6-5.0) mmol/L Chloride (101-111) mmol/L Carbon Dioxide (21.0-31.0) mmol/L Anion Gap BUN (7-18) mg/dL Creatinine (0.6-1.3) mg/dL Est Cr Clr Drug Dosing mL/min Estimated GFR (MDRD) Glucose (74-105) mg/dL POC Glucose 215 H 87 208 H (83-110) mg/dl Calcium (8.4-10.2) mg/dl 06/09/17 06/09/17 06/09/17 Range/Units 05:40 07:50 08:06 Sodium 137 (135-145) mmol/L Potassium 3.5 L (3.6-5.0) mmol/L Chloride 100 L (101-111) mmol/L Carbon Dioxide 32.0 H (21.0-31.0) mmol/L Anion Gap 8.5 BUN 17 (7-18) mg/dL Creatinine 1.2 (0.6-1.3) mg/dL Est Cr Clr Drug Dosing 60.15 mL/min Estimated GFR (MDRD) 59 Glucose 60 L (74-105) mg/dL POC Glucose 27 L* 117 H (83-110) mg/dl Calcium 8.7 (8.4-10.2) mg/dl Med Orders - Current: Current Medications Acetaminophen (Tylenol) 650 mg PO Q4H PRN PRN Reason: Pain (Mild 1-3)/fever Amiodarone HCl (Cordarone) 200 mg PO BEDTIME [facility] Last Admin: 06/08/17 21:13 Dose: 200 mg Atorvastatin Calcium (Lipitor) 40 mg PO BEDTIME [facility] Last Admin: 06/08/17 21:14 Dose: 40 mg Carvedilol (Coreg) 12.5 mg PO BIDMEALS [facility] Last Admin: 06/08/17 17:23 Dose: 12.5 mg Clopidogrel Bisulfate (Plavix) 75 mg PO DAILY [facility] Last Admin: 06/08/17 09:16 Dose: 75 mg Dextrose/Water (Dextrose 50% In Water) 25 ml IVPUSH ONETIME PRN PRN Reason: Hypoglycemia Docusate Sodium (Colace) 100 mg PO BID PRN PRN Reason: Constipation Folic Acid (Folic Acid) 1 mg PO DAILY [facility] Last Admin: 06/08/17 09:18 Dose: 1 mg Furosemide (Lasix) 40 mg PO DAILY [facility] Last Admin: 06/08/17 09:19 Dose: 40 mg Gabapentin (Neurontin) 300 mg PO BID [facility] Last Admin: 06/08/17 21:14 Dose: 300 mg Hydroxychloroquine Sulfate (Plaquenil) 200 mg PO DAILY [facility] Last Admin: 06/08/17 09:18 Dose: 200 mg Insulin Aspart (Novolog) 0 unit SUBCUT TIDAC [facility]; Protocol Last Admin: 06/08/17 17:17 Dose: Not Given Insulin Aspart (Novolog) 5 unit SUBCUT BID@0800,1200 [facility] Last Admin: 06/08/17 12:22 Dose: 5 units Insulin Detemir (Levemir) 10 unit SUBCUT BEDTIME [facility] Magnesium Hydroxide (Milk Of Magnesia) 30 ml PO Q12H PRN PRN Reason: Constipation Nitroglycerin (Nitrostat) 0.4 mg SL Q5M PRN PRN Reason: Chest Pain Ondansetron HCl (Zofran Odt) 4 mg PO Q4H PRN PRN Reason: nausea, able to take PO Oxycodone HCl (Oxycodone) 5 mg PO Q4H PRN PRN Reason: Pain (moderate 4-6) Leflunomide 20 Mg (Pt's Own Med) 0 each PO DAILY [facility] Last Admin: 06/08/17 09:09 Dose: 1 each Fish Oil Gummies (Pt's Own Med) 2 each PO DAILY [facility] Last Admin: 06/08/17 09:07 Dose: 2 each Timolol Maleate 0.5% Gfs Pt's Own Med* * 1 each EYEBOTH BEDTIME [facility] Last Admin: 06/08/17 21:15 Dose: 1 each Potassium Chloride (Klor-Con 10) 40 meq PO DAILY@0800 [facility] Last Admin: 06/08/17 09:09 Dose: 40 meq Rivaroxaban (Xarelto) 10 mg PO DAILY [facility] Last Admin: 06/08/17 09:17 Dose: 10 mg Sodium Chloride (Saline Flush) 10 ml FLUSH ASDIRECTED PRN PRN Reason: Keep Vein Open Last Admin: 06/08/17 09:22 Dose: 10 ml Valsartan (Diovan) 160 mg PO DAILY [facility] Last Admin: 06/08/17 09:19 Dose: 160 mg Vancomycin HCl (Vancomycin 50 Mg/Ml Soln) 125 mg PO QID [facility] Last Admin: 06/08/17 21:14 Dose: 125 mg Discontinued Medications Carvedilol (Coreg) 6.25 mg PO BIDMEALS [facility] Last Admin: 06/06/17 08:57 Dose: 6.25 mg Dextrose/Water (Dextrose 50% In Water) 50 ml IVPUSH ONETIME ONE Stop: 06/04/17 09:32 Last Admin: 06/04/17 09:35 Dose: 50 ml Dextrose/Water (Dextrose 50% In Water) Confirm Administered Dose 50 ml .ROUTE .STK-MED ONE Stop: 06/04/17 09:34 Last Admin: 06/04/17 13:00 Dose: Not Given Dextrose/Water (Dextrose 50% In Water) 50 ml IVPUSH ONETIME PRN PRN Reason: Hypoglycemia Last Admin: 06/09/17 08:00 Dose: 25 ml Furosemide (Lasix) 40 mg PO BIDDIURETIC [facility] Last Admin: 06/07/17 12:15 Dose: Not Given Insulin Aspart (Novolog) 5 unit SUBCUT TIDM [facility] Last Admin: 06/06/17 12:45 Dose: Not Given Insulin Aspart (Novolog) 0 unit SUBCUT QID [facility]; Protocol Last Admin: 06/07/17 12:29 Dose: 3 unit Insulin Aspart (Novolog) 5 unit SUBCUT BID@0800,1200 [facility] Last Admin: 06/07/17 12:29 Dose: 5 units Insulin Aspart (Novolog) 5 unit SUBCUT NOW STA Stop: 06/07/17 21:12 Last Admin: 06/07/17 21:27 Dose: 5 units Insulin Aspart (Novolog) 0 unit SUBCUT ONETIME ONE Stop: 06/08/17 00:26 Last Admin: 06/08/17 00:30 Dose: 3 units Insulin Detemir (Levemir) 20 unit SUBCUT BEDTIME [facility] Last Admin: 06/06/17 21:33 Dose: 20 units Insulin Detemir (Levemir) 25 unit SUBCUT BEDTIME [facility] Last Admin: 06/08/17 21:13 Dose: 25 units Timolol Maleate 0.5% Gfs Pt's Own Med* * 1 each EYEBOTH DAILY [facility] Last Admin: 06/05/17 09:03 Dose: 1 each - Exam General: Alert, Oriented HEENT: Pupils Equal, Pupils Reactive, EOMI, Mucous Membr. Moist/[place] Neck: Supple Lungs: Clear to Auscultation, Normal Respiratory Effort Cardiovascular: Regular Rate, Regular Rhythm GI/Abdominal Exam: Normal Bowel Sounds, Soft, Non-Tender, No Organomegaly, No Distention, No Abnormal Bruit, No Mass, Pelvis Stable (Male) Exam: No Hernia, Normal Inspection, Normal Prostate, Circumcised Back Exam: Normal Inspection, Full Range of Motion Extremities: Normal Inspection, Normal Range of Motion, Non-Tender, No Pedal Edema, Normal Capillary Refill Skin: Warm, Dry, Intact Wound/Incisions: Healing Well Neurological: No New Focal Deficit Psy/Mental Status: Alert, Normal Affect, Normal Mood - Problem List & Annotations (1) Hypoglycemia SNOMED Code(s): 553765997 Code(s): E16.2 - HYPOGLYCEMIA, UNSPECIFIED Status: Acute Current Visit: Yes (2) Aspiration pneumonia SNOMED Code(s): 839502946 Code(s): J69.0 - PNEUMONITIS DUE TO INHALATION OF FOOD AND VOMIT Status: Acute Current Visit: No Qualifiers: Aspiration pneumonia type: unspecified Laterality: left Lung location: lower lobe of lung Qualified Code(s): J69.0 - Pneumonitis due to inhalation of food and vomit - Problem List Review Problem List Initiated/Reviewed/Updated: Yes - My Orders Last 24 Hours: My Active Orders 06/09/17 08:20 Dextrose 50% in Water 25 ml IVPUSH ONETIME PRN 06/09/17 21:00 Insulin Detemir [Levemir] 10 unit SUBCUT BEDTIME - Plan Plan:: DM-I on insulin pump. Treatment complicated by recurrent hypoglycemia due to improper use of insulin pump. Currently on insulin levemir and sliding scale. PM levemir decreasd to 10 units will continue for now monitor FSG clos[place] when blood glucose stabilize will educate patient on use of insulin pump before discharge. C.diff diarrhea on PO vanco
[2017-06-09] MEDS: Insulin Aspart 100 Units/ML 3 ML Pen SUBCUT SCH ×5 (08:29→17:32)
[2017-06-09] MEDS: Clopidogrel 75 MG Tab PO SCH (09:07)
[2017-06-09] MEDS: Potassium Chloride 10 MEQ Tab.ER PO SCH (09:07)
[2017-06-09] MEDS: Carvedilol 6.25 MG Tab PO SCH ×2 (09:07→17:31)
[2017-06-09] MEDS: Rivaroxaban 10 MG Tab PO SCH (09:07)
[2017-06-09] MEDS: Furosemide 40 MG Tab PO SCH (09:07)
[2017-06-09] MEDS: Folic Acid 1 MG Tab PO SCH (09:07)
[2017-06-09] MEDS: Hydroxychloroquine 200 MG Tab PO SCH (09:07)
[2017-06-09] MEDS: LEFLUNOMIDE 20 MG PO SCH (09:08)
[2017-06-09] MEDS: Gabapentin 300 MG Cap PO SCH ×2 (09:08→21:59)
[2017-06-09] MEDS: FISH OIL GUMMIES PO SCH (09:08)
[2017-06-09] MEDS: Vancomycin 50 MG/ML Oral Solution Bottle Kit PO SCH ×4 (09:09→22:05)
[2017-06-09] MEDS ORDERED: Insulin Detemir 100 Units/ML 3 ML Pen SUBCUT SCH (21:00)
[2017-06-09] MEDS: Amiodarone 200 MG Tab PO SCH (21:57)
[2017-06-09] MEDS: TIMOLOL MALEATE 0.5% EYEBOTH SCH (21:59)
[2017-06-09] MEDS: atorvaSTATin 20 MG Tab PO SCH (21:59)
[2017-06-10 07:00] LABS: CHLORIDE,CL 98 mmol/L (101-111); SODIUM,NA 134 mmol/L (135-145)
[2017-06-10 07:50] VITALS: BP 151/75
[2017-06-10] MEDS: LEFLUNOMIDE 20 MG PO SCH (08:23)
[2017-06-10] MEDS: FISH OIL GUMMIES PO SCH (08:23)
[2017-06-10] MEDS: Folic Acid 1 MG Tab PO SCH (08:24)
[2017-06-10] MEDS: Rivaroxaban 10 MG Tab PO SCH (08:24)
[2017-06-10] MEDS: Hydroxychloroquine 200 MG Tab PO SCH (08:24)
[2017-06-10] MEDS: Clopidogrel 75 MG Tab PO SCH (08:24)
[2017-06-10] MEDS: Gabapentin 300 MG Cap PO SCH (08:24)
[2017-06-10] MEDS: Furosemide 40 MG Tab PO SCH (08:24)
[2017-06-10] MEDS: Potassium Chloride 10 MEQ Tab.ER PO SCH (08:24)
[2017-06-10] MEDS: Insulin Aspart 100 Units/ML 3 ML Pen SUBCUT SCH ×2 (08:25→08:27)
[2017-06-10] MEDS: Carvedilol 6.25 MG Tab PO SCH (08:25)
[2017-06-10] MEDS: Vancomycin 50 MG/ML Oral Solution Bottle Kit PO SCH (08:28)
--- NOTE | 2017-06-10 09:35 | PCM.DCSUM1 ---
Discharge Summary - Hospital Course Free Text/Narrative:: Mr. Meléndez has a history of hypertension, diabetes, congestive heart failure. The patient has been using an insulin pump. The patient presented with recurrent episodes of hypoglycemia. The insulin pump was discontinued. Started the patient on Levemir, Humalog combination. This was adjusted. The patient will be discharged to meet with international sales representative. Follow-up with the them as an outpatient. The patient's congestive heart failure, hypertension, atrial fibrillation remains stable. - Discharge Data Discharge Date: 06/10/17 Discharge Disposition: Home, Self-Care 01 Condition: Good - Patient Summary/Data Consults: Consultations 06/04/17 12:48 OT Evaluation and Treatment [CONS] Routine PT Evaluation and Treatment [CONS] Routine - Patient Instructions Diet: Heart Healthy Diet Activity: As Tolerated - Discharge Plan Prescriptions/Med Rec: Insulin Aspart [NovoLOG] 5 unit SUBCUT BID@0800,1200 #1 pen Insulin Detemir [Levemir] 10 unit SUBCUT BEDTIME #1 pen Home Medications: Home Meds Clopidogrel Bisulfate [Plavix] 75 mg PO DAILY 06/21/13 [History] Folic Acid 800 mcg PO DAILY 06/21/13 [History] Gabapentin [Neurontin] 300 mg PO BID 06/21/13 [History] Hydroxychloroquine Sulfate [Plaquenil] 200 mg PO DAILY 06/21/13 [History] Nitroglycerin [Nitrostat] 1 tab SL .Q5MIN PRN 06/21/13 [History] [place]-3/DHA/Epa/Fish Oil [Ra Fish Oil 1,000 mg Softgel] 2 cap PO DAILY 06/21/13 [History] atorvaSTATin [Lipitor] 40 mg PO BEDTIME 06/21/13 [History] Amiodarone [Cordarone] 200 mg PO BEDTIME 11/02/15 [History] Furosemide [Lasix] 20 mg PO BID 11/02/15 [History] Rivaroxaban [Xarelto] 10 mg PO DAILY 11/02/15 [History] Potassium Chloride [Klor-Con M20] 40 meq PO DAILY 11/03/15 [History] Timolol Maleate 1 drop EYEBOTH DAILY 11/03/15 [History] Carvedilol 6.25 mg PO BID 05/14/17 [History] Leflunomide 20 mg PO DAILY 05/14/17 [History] Valsartan 160 mg PO DAILY 06/04/17 [History] Vancomycin [Vancomycin 50 MG/ML Soln] 2.5 ml PO QID 06/04/17 [History] Insulin Aspart [NovoLOG] 5 unit SUBCUT BID@0800,1200 #1 pen 06/10/17 [Rx] Insulin Detemir [Levemir] 10 unit SUBCUT BEDTIME #1 pen 06/10/17 [Rx] Patient Handouts: Correction Insulin, Insulin Pumps, How to Avoid Diabetes Mellitus Problems, Hypoglycemia, [id number] Referrals: Chino Alaniz MD [Primary Care Provider] - (early next week) - General Info Date of Service: 06/10/17 Subjective Update: Feeling well, no further hypoglycemia. Functional Status: Reports: Pain Controlled, Tolerating Diet - Review of Systems General: Denies: Fever Pulmonary: Denies: Shortness of Breath Cardiovascular: Denies: Chest Pain Gastrointestinal: Denies: Abdominal Pain Neurological: Denies: Confusion - Patient Data Vitals - Most Recent: Last Vital Signs Temp 36.5 C 06/10/17 07:49 Pulse 74 06/10/17 08:25 Resp 20 06/10/17 07:49 BP 151/75 H 06/10/17 08:25 Pulse Ox 95 06/10/17 07:49 Weight - Most Recent: 76.884 kg I&O - Last 24 hours: Intake & Output 06/09/17 06/10/17 06/10/17 22:59 06:59 14:59 Intake Total 200 Output Total 600 Balance -400 Lab Results - Last 24 hrs: Laboratory Results - last 24 hr 06/09/17 06/09/17 06/09/17 Range/Units 11:33 17:05 21:11 WBC (5.0-10.0) 10^3/uL RBC (4.6-6.2) 10^6/uL Hgb (14.0-18.0) g/dL Hct (40.0-54.0) % MCV (80-100) fL MCH (27.0-34.0) pg MCHC (33.0-35.0) g/dL Plt Count (150-450) 10^3/uL Neut % (Auto) (42.2-75.2) % Lymph % (Auto) (20.5-50.1) % Rhea % (Auto) (2-8) % Eos % (Auto) (1.0-3.0) % Baso % (Auto) (0.0-1.0) % Sodium (135-145) mmol/L Potassium (3.6-5.0) mmol/L Chloride (101-111) mmol/L Carbon Dioxide (21.0-31.0) mmol/L Anion Gap BUN (7-18) mg/dL Creatinine (0.6-1.3) mg/dL Est Cr Clr Drug Dosing mL/min Estimated GFR (MDRD) Glucose (74-105) mg/dL POC Glucose 206 H 268 H 306 H (83-110) mg/dl Calcium (8.4-10.2) mg/dl 18 06/10/17 Range/Units 05:52 05:52 WBC 6.4 (5.0-10.0) 10^3/uL RBC 3.85 L (4.6-6.2) 10^6/uL Hgb 11.1 L (14.0-18.0) g/dL Hct 34.3 L (40.0-54.0) % MCV 89.1 (80-100) fL MCH 28.8 (27.0-34.0) pg MCHC 32.4 L (33.0-35.0) g/dL Plt Count 358 (150-450) 10^3/uL Neut % (Auto) 62.4 (42.2-75.2) % Lymph % (Auto) 17.0 L (20.5-50.1) % Rhea % (Auto) 8.6 H (2-8) % Eos % (Auto) 10.0 H (1.0-3.0) % Baso % (Auto) 2.0 H (0.0-1.0) % Sodium 134 L (135-145) mmol/L Potassium 3.8 (3.6-5.0) mmol/L Chloride 98 L (101-111) mmol/L Carbon Dioxide 30.0 (21.0-31.0) mmol/L Anion Gap 9.8 BUN 18 (7-18) mg/dL Creatinine 1.1 (0.6-1.3) mg/dL Est Cr Clr Drug Dosing 65.62 mL/min Estimated GFR (MDRD) > 60 Glucose 314 H (74-105) mg/dL POC Glucose (83-110) mg/dl Calcium 8.3 L (8.4-10.2) mg/dl Med Orders - Current: Current Medications Acetaminophen (Tylenol) 650 mg PO Q4H PRN PRN Reason: Pain (Mild 1-3)/fever Amiodarone HCl (Cordarone) 200 mg PO BEDTIME [facility] Last Admin: 06/09/17 21:57 Dose: 200 mg Atorvastatin Calcium (Lipitor) 40 mg PO BEDTIME [facility] Last Admin: 06/09/17 21:59 Dose: 40 mg Carvedilol (Coreg) 12.5 mg PO BIDMEALS [facility] Last Admin: 06/10/17 08:25 Dose: 12.5 mg Clopidogrel Bisulfate (Plavix) 75 mg PO DAILY [facility] Last Admin: 06/10/17 08:24 Dose: 75 mg Dextrose/Water (Dextrose 50% In Water) 25 ml IVPUSH ONETIME PRN PRN Reason: Hypoglycemia Last Admin: 06/09/17 08:00 Dose: 25 ml Docusate Sodium (Colace) 100 mg PO BID PRN PRN Reason: Constipation Folic Acid (Folic Acid) 1 mg PO DAILY [facility] Last Admin: 06/10/17 08:24 Dose: 1 mg Furosemide (Lasix) 40 mg PO DAILY [facility] Last Admin: 06/10/17 08:24 Dose: 40 mg Gabapentin (Neurontin) 300 mg PO BID [facility] Last Admin: 06/10/17 08:24 Dose: 300 mg Hydroxychloroquine Sulfate (Plaquenil) 200 mg PO DAILY [facility] Last Admin: 06/10/17 08:24 Dose: 200 mg Insulin Aspart (Novolog) 0 unit SUBCUT TIDAC [facility]; Protocol Last Admin: 06/10/17 08:27 Dose: 3 units Insulin Aspart (Novolog) 5 unit SUBCUT BID@0800,1200 [facility] Last Admin: 06/10/17 08:25 Dose: 5 units Insulin Detemir (Levemir) 10 unit SUBCUT BEDTIME [facility] Last Admin: 06/09/17 21:57 Dose: 10 units Magnesium Hydroxide (Milk Of Magnesia) 30 ml PO Q12H PRN PRN Reason: Constipation Nitroglycerin (Nitrostat) 0.4 mg SL Q5M PRN PRN Reason: Chest Pain Ondansetron HCl (Zofran Odt) 4 mg PO Q4H PRN PRN Reason: nausea, able to take PO Oxycodone HCl (Oxycodone) 5 mg PO Q4H PRN PRN Reason: Pain (moderate 4-6) Leflunomide 20 Mg (Pt's Own Med) 0 each PO DAILY [facility] Last Admin: 06/10/17 08:23 Dose: 1 each Fish Oil Gummies (Pt's Own Med) 2 each PO DAILY [facility] Last Admin: 06/10/17 08:23 Dose: 2 each Timolol Maleate 0.5% Gfs Pt's Own Med* * 1 each EYEBOTH BEDTIME [facility] Last Admin: 06/09/17 21:59 Dose: 1 each Potassium Chloride (Klor-Con 10) 40 meq PO DAILY@0800 [facility] Last Admin: 06/10/17 08:24 Dose: 40 meq Rivaroxaban (Xarelto) 10 mg PO DAILY [facility] Last Admin: 06/10/17 08:24 Dose: 10 mg Sodium Chloride (Saline Flush) 10 ml FLUSH ASDIRECTED PRN PRN Reason: Keep Vein Open Last Admin: 06/08/17 09:22 Dose: 10 ml Valsartan (Diovan) 160 mg PO DAILY [facility] Last Admin: 06/10/17 08:24 Dose: 160 mg Vancomycin HCl (Vancomycin 50 Mg/Ml Soln) 125 mg PO QID [facility] Last Admin: 06/10/17 08:28 Dose: 125 mg Discontinued Medications Carvedilol (Coreg) 6.25 mg PO BIDMEALS [facility] Last Admin: 06/06/17 08:57 Dose: 6.25 mg Dextrose/Water (Dextrose 50% In Water) 50 ml IVPUSH ONETIME ONE Stop: 06/04/17 09:32 Last Admin: 06/04/17 09:35 Dose: 50 ml Dextrose/Water (Dextrose 50% In Water) Confirm Administered Dose 50 ml .ROUTE .STK-MED ONE Stop: 06/04/17 09:34 Last Admin: 06/04/17 13:00 Dose: Not Given Dextrose/Water (Dextrose 50% In Water) 50 ml IVPUSH ONETIME PRN PRN Reason: Hypoglycemia Furosemide (Lasix) 40 mg PO BIDDIURETIC [facility] Last Admin: 06/07/17 12:15 Dose: Not Given Insulin Aspart (Novolog) 5 unit SUBCUT TIDM [facility] Last Admin: 06/06/17 12:45 Dose: Not Given Insulin Aspart (Novolog) 0 unit SUBCUT QID [facility]; Protocol Last Admin: 06/07/17 12:29 Dose: 3 unit Insulin Aspart (Novolog) 5 unit SUBCUT BID@0800,1200 [facility] Last Admin: 06/07/17 12:29 Dose: 5 units Insulin Aspart (Novolog) 5 unit SUBCUT NOW STA Stop: 06/07/17 21:12 Last Admin: 06/07/17 21:27 Dose: 5 units Insulin Aspart (Novolog) 0 unit SUBCUT ONETIME ONE Stop: 06/08/17 00:26 Last Admin: 06/08/17 00:30 Dose: 3 units Insulin Detemir (Levemir) 20 unit SUBCUT BEDTIME [facility] Last Admin: 06/06/17 21:33 Dose: 20 units Insulin Detemir (Levemir) 25 unit SUBCUT BEDTIME [facility] Last Admin: 06/08/17 21:13 Dose: 25 units Timolol Maleate 0.5% Gfs Pt's Own Med* * 1 each EYEBOTH DAILY [facility] Last Admin: 06/05/17 09:03 Dose: 1 each - Exam General: Reports: Alert, Oriented Lungs: Reports: Clear to Auscultation, Normal Respiratory Effort Cardiovascular: Reports: Regular Rate Extremities: No Pedal Edema *Q Meaningful Use (DIS) - VTE *Q VTE Anticoagulation Contraindications: Alternative [place] Request PT
== END 2017-06-10 11:00 | disposition home or self-care (01) | DRG 638 ==
LOC: DL.ED 09:18 → UNDOADMIN 11:29 → DL.MS 11:29
PROVIDERS: ADMIT Internal Medicine; ATTEND Internal Medicine
DX: E10.649 Type 1 diabetes mellitus with hypoglycemia without coma (principal); I50.32 Chronic diastolic (congestive) heart failure; A04.72 Enterocolitis due to Clostridium difficile, not specified as recurrent; I13.0 Hypertensive heart and chronic kidney disease with heart failure and stage 1 through stage 4 chronic kidney disease, or unspecified chronic kidney disease; I50.9 Heart failure, unspecified; H54.7 Unspecified visual loss; I48.91 Unspecified atrial fibrillation; I25.10 Atherosclerotic heart disease of native coronary artery without angina pectoris; Z86.73 Personal history of transient ischemic attack (TIA), and cerebral infarction without residual deficits; G47.30 Sleep apnea, unspecified; M06.9 Rheumatoid arthritis, unspecified; M41.9 Scoliosis, unspecified; Z96.41 Presence of insulin pump (external) (internal); Z88.1 Allergy status to other antibiotic agents; Z88.2 Allergy status to sulfonamides; Z95.5 Presence of coronary angioplasty implant and graft; Z79.4 Long term (current) use of insulin; R47.81 Slurred speech; Z79.899 Other long term (current) drug therapy; Z86.14 Personal history of Methicillin resistant Staphylococcus aureus infection; E78.5 Hyperlipidemia, unspecified; I69.328 Other speech and language deficits following cerebral infarction; I69.398 Other sequelae of cerebral infarction; R53.1 Weakness; Z95.1 Presence of aortocoronary bypass graft; I25.2 Old myocardial infarction; W18.30XA Fall on same level, unspecified, initial encounter; Z95.828 Presence of other vascular implants and grafts; Z88.8 Allergy status to other drugs, medicaments and biological substances; Z79.2 Long term (current) use of antibiotics; Z79.01 Long term (current) use of anticoagulants; Z79.02 Long term (current) use of antithrombotics/antiplatelets; R53.81 Other malaise; I11.0 Hypertensive heart disease with heart failure; I95.9 Hypotension, unspecified; N18.9 Chronic kidney disease, unspecified; N17.9 Acute kidney failure, unspecified; Z28.21 Immunization not carried out because of patient refusal; E10.22 Type 1 diabetes mellitus with diabetic chronic kidney disease
CPT/HCPCS: 36415; 71045; 80053; 81001; 82962 ×2; 83605; 83880; 84484; 85025; 93005; 93010; 96374; 99285; J7050; 80048; 83735; 84100; 85027; 97162-GP; 97165-GO; A9270-GY; J1815-GY; J7060

== ENCOUNTER 2018-07-14 09:26 | Outpatient (CLI) | payer OTHER, MEDICARE ==
[2018-07-14] MEDS ORDERED: Sodium Chloride 0.9% 10 ML Syringe IV PRN (09:55)
[2018-07-14] MEDS ORDERED: Sodium Chloride 0.9% 250 ML IV SCH (13:00)
[2018-07-14 16:33] VITALS: BP 151/69; PULSE 58
== END 2018-07-14 16:25 ==
LOC: EEVIPCON → DL.BLOODTR 09:26
PROVIDERS: ATTEND Internal Medicine
DX: I50.9 Heart failure, unspecified (principal); D64.9 Anemia, unspecified; I25.10 Atherosclerotic heart disease of native coronary artery without angina pectoris
CPT/HCPCS: 36415; 36430; 86850; 86900; 86901; 86920; 86922; J7050; P9016